=== PATIENT | female | born 1945 | race Caucasian/White ===

== ENCOUNTER → 2016-10-21 | Outpatient (CLI) | payer OTHER | LOC: BHFA 10:15 | PROVIDERS: ATTEND Internal Medicine Cardiovascular Disease | DX: I48.91 Unspecified atrial fibrillation (principal); I10 Essential (primary) hypertension; I38 Endocarditis, valve unspecified ==

== ENCOUNTER → 2016-10-23 | Outpatient (CLI) | payer OTHER, BC | LOC: FIMAGING 11:53 | PROVIDERS: ATTEND Specialist | DX: M51.36 Other intervertebral disc degeneration, lumbar region (principal) ==

== ENCOUNTER 2016-10-30 08:26 | Inpatient (IN) | payer OTHER ==
[2016-10-30 09:31] LABS: HEMATOCRIT 30.8 % (38.0-47.0); HEMOGLOBIN 10.2 g/dL (12.6-16.3)
[2016-10-30 09:50] LABS: INR 1.09 (0.83-1.16)
[2016-10-30 09:51] LABS: APTT 26.6 SEC (23.0-38.0)
[2016-10-30 09:57] LABS: ANION GAP 12 mEq/L (8-16); CALCIUM 9.6 mg/dL (8.5-10.4); CARBON DIOXIDE 23 mEq/l (22-31); CHLORIDE 107 mEq/L (97-110); CREATININE 1.3 mg/dL (0.6-1.0); GLOMERULAR FILTRATION RATE 40; GLUCOSE 121 mg/dL (70-100); POTASSIUM 3.7 mEq/L (3.5-5.2); SODIUM 142 mEq/L (134-144)
[2016-10-30] MEDS ORDERED: fentaNYL 100 MCG/2 ML INJ ONE ×2 (10:13→12:26)
[2016-10-30] MEDS ORDERED: LIDOCAINE 2% 100 MG/5 ML SYR ONE (10:29)
[2016-10-30] MEDS ORDERED: PROPOFOL 200 MG/20 ML VIAL ONE (10:38)
[2016-10-30] MEDS ORDERED: DEXAMETHASONE 4 MG/ML VIAL ONE ×2 (11:46)
[2016-10-30] MEDS ORDERED: ONDANSETRON 4 MG/2 ML VIAL ONE (11:47)
[2016-10-30] MEDS ORDERED: IOPAMIDOL (ISOVUE-300) 100 ML BTL IV ONE (14:43)
[2016-10-30] MEDS ORDERED: HYDROmorphONE/DILAUDID 1 MG/ML SYR IVP PRN (14:57)
[2016-10-30] MEDS ORDERED: D50W 25 GM/50 ML SYR IVP PRN (16:14)
[2016-10-30] MEDS ORDERED: NS 1,000 ML IV SCH (16:30)
--- NOTE | 2016-10-30 16:40 | GHP ---
[f rep st] HISTORY AND PHYSICAL DATE OF ADMISSION: 10/30/2016 CHIEF COMPLAINT: Hematuria. HISTORY: The patient is a 71-year-old female who underwent a right-sided nephrostomy tube with Dr. Michaels today. She was diagnosed as an outpatient by Dr. Mccain with a large kidney stone. He plans on intervention tomorrow. She never has had any pain with this stone. This was discovered because roberto grewal was having hematuria and recurrent urinary tract infections. The last time she was on antibiotics was a few weeks ago. PAST MEDICAL HISTORY: 1. Hypertension. 2. Diabetes. 3. Depression. PAST SURGICAL HISTORY: Broken leg, appendectomy, bowel blockage. MEDICATIONS: Please see computer record for full detailed list. ALLERGIES: No known drug allergies. SOCIAL HISTORY: No smoking. No alcohol. She lives alone. REVIEW OF SYSTEMS: Complete review of systems obtained. Review of systems is negative regarding co nstitutional, HEENT, GI, pulmonary, cardiovascular, , hematology, skin, musculoskeletal, endocrine and psychiatric, except for positives and negatives as noted under HPI. FAMILY HISTORY: Reviewed, noncontributory to presenting complaint. PHYSICAL EXAMINATION: GENERAL: Well-developed, well-nourished female, in no distress. VITAL SIGNS : Temperature is 36.5, pulse 67, blood pressure 127/65, saturating 98% on room air. EYES: Normal conjunctivae. Pupils react to light. ENT: Normal ears, nose. Hearing intact. Normal lips and te eth. Oropharynx moist. NECK: Trachea midline. No thyromegaly. CHEST: Normal respiratory effort . LUNGS: Clear to auscultation bilaterally. CARDIOVASCULAR SYSTEM: Regular rate and rhythm. Bertha y loud prominent murmur heard best at right upper sternal border. No lower extremity edema. ABDOME N: Soft, nontender. No hepatosplenomegaly. SKIN: Warm, dry, intact. No rash. MUSCULOSKELETAL: No cyanosis or clubbing. Strength 5/5 upper and lower extremities. NEURO: Cranial nerves intact. Normal sensation to light touch. PSYCH: Alert and oriented x3. Normal mood and affect. Normal judgment. Normal memory. LABS: Hematocrit is 30.8 platelets 1.09. Sodium 142, potassium 3.7, chloride 107, bicarb 23, BUN 3 4, creatinine 1.3, glucose 121. ASSESSMENT AND PLAN: 1. Right-sided nephrolithiasis status post right-sided nephrostomy tube. Plan is to go to OR in morning with Dr. Mccain. 2. Acute renal failure. She is above baseline, which I believe is normal. Will hydrate with IV fl uids overnight and recheck in the morning. Will hold her meloxicam. 3. Diabetes type 2. She is typically on glipizide, Actos and metformin, which will be held tomorro w morning prior to surgery. Will place on insulin sliding scale. 4. Hypertension. Continue Coreg, chlorthalidone and Diovan. 5. Murmur. This is consistent with an murmur. She denies ever previously having an echocardiog sascha. Will check one as the may be relevant in the preoperative evaluation. She is also on Eliqu is, which makes me wonder if she has a diagnosis of atrial fibrillation. Will hold Eliquis for surg tristan. Will check an EKG in the morning. CODE STATUS: Full. ADMISSION STATUS: Will admit to observation depending on how she does after surgery. Decision to b e made tomorrow whether or not she needs ongoing hospitalization. DVT PROPHYLAXIS: She is low risk as she is chronically anticoagulated. Will place her on SCDs. /[id number]/MODL
--- NOTE | 2016-10-30 17:12 | ECHO ---
[id number] + + [address] : : [place] [address] : : [phone] + Adult Echocardiographic Report + -------+ :Name: KAROLYN SOSA MStudy Date: 10/30/2016 04:28 PM : : Hospital Admission Number: [id number] Locati on: 156: :: 1945 Gender: Female Height: 67 in : :Age: 71 yrs Race: WH Weight: 209 lb : :Reason For Study: loud murmur; pre-op : : BSA: 2.1 meter s2 : :History: loud murmur; pre-op : + -------+ MMode/2D Measurements \T\ Calculations IVSd: 1.6 cm LVIDd: 4.7 cm FS: 46.6 % Ao root diam: LVPWd: 1.4 cm LVIDs: 2.5 cm EDV(Teich): 3.0 cm 101.3 ml LA dimension: ESV(Teich): 22.3 ml 4.2 cm EF(Teich): 78.0 % LVOT diam: LVLd ap4: 8.4 cm SV(MOD-sp4): 1.9 cm EDV(MOD-sp4): 112.0 ml LVOT area: 159.0 ml 2.8 cm2 LVLs ap4: 6.8 cm ESV(MOD-sp4): 47.0 ml EF(MOD-sp4): 70.4 % Normal Measurement Values: + + :LVIDd (3.5-5.7cm) IVSd (0.6-1.1cm) LVPWd (0.6-1.1cm) Aortic Root (2.0-3.7cm)Left Atrium (1.5-4.0cm): :LV Vol(d) (76-115ml) LV Vol(s) (29-48ml) Ejec Fraction (50-65%)PV David (0.6- 1.2m/s) TV David (0.4-1.0m/s) : :MV E David (0.8-1.0m/s)MV A David (0.3-1.0m/s)LVOT David (0.7-1.2m/s) Asc Ao David ( 0.9-1.8m/s) : + + Doppler Measurements \T\ Calculations MV V2 max: Ao V2 max: LV V1 max: SV(LVOT): 239.7 cm/sec 413.0 cm/sec 136.0 cm/sec 70.0 ml MV max P.0 mmHg Ao max P.2 mmHg LV V1 max PG: MV V2 mean: Ao mean P.4 mmHg 160.0 cm/sec 45.0 mmHg LV V1 mean PG: MV mean PG: Ao V2 mean: 5.0 mmHg 11.0 mmHg 326.0 cm/sec LV V1 mean: MV V2 VTI: 55.6 cm Ao V2 VTI: 80.3 cm 99.5 cm/sec MVA(VTI): 1.3 cm2 CHARLINE(I,D): 0.87 cm2 LV V1 VTI: 24.7 cm CHARLINE(V,D): 0.93 cm2 PA V2 max: TR max david: 144.0 cm/sec 323.0 cm/sec PA max P.3 mmHg TR max P.7 mmHg RAP systole: 10.0 mmHg RVSP(TR): 51.7 mmHg Left Ventricle The left ventricle is normal in size. There is moderate concentric left ventricular hypertrophy. Ejection Fraction = 75%. The left ventricle is hyperdynamic. No regional wall motion abnormalities noted. Right Ventricle The right ventricle is normal in size and function. Atria The left atrium is moderate to severely dilated. Right atrial size is normal. A dilated inferior vena cava suggests increased right atrial pressure. Mitral Valve The mitral valve leaflets appear thickened, but open well. Severe posterior mitral annular calcification. There is moderate mitral stenosis. Mean gradient across the valve 9-11mmHg. There is mild mitral regurgitation. Tricuspid Valve The tricuspid valve is normal in structure and function. There is mild tricuspid regurgitation. Right ventricular systolic pressure is 52mmHg. There is Doppler evidence for moderate pulmonary hypertension. Aortic Valve The aortic valve is trileaflet. Severe Aortic Valve Calcification. 45/68 mmHg mean/max pressure gradient, 4.3m.sec max velocity across the valve and NDSI = .31. Moderate to severe valvular aortic stenosis. There is a calculated aortic valve area of .93 cm2. Mild aortic regurgitation. Pulmonic Valve The pulmonic valve is normal in structure and function. Mild pulmonic valvular regurgitation. Great Vessels The aortic root is normal size. Pericardium/Pleural trivial pericardial effusion. Conclusion A two-dimensional transthoracic echocardiogram with M-mode and Doppler was performed. The left ventricle is normal in size. There is moderate concentric left ventricular hypertrophy. The left ventricle is hyperdynamic. Ejection Fraction = 75%. The left atrium is moderate to severely dilated. Severe posterior mitral annular calcification. There is moderate mitral stenosis. There is mild mitral regurgitation. There is mild tricuspid regurgitation. Right ventricular systolic pressure is 52mmHg. There is Doppler evidence for moderate pulmonary hypertension. Mild aortic regurgitation. 45/68 mmHg mean/max pressure gradient, 4.3m.sec max velocity across the valve and NDSI = .31. Moderate to severe valvular aortic stenosis. There is a calculated aortic valve area of .93 cm2. Mild pulmonic valvular regurgitation. trivial pericardial effusion. Mean gradient across the valve 9-11mmHg. Final Reading Physician: Ashvin Boyer signed on 10/30/2016 05:10 PM Ordering Physician: Erica Conrad Performed By: Elaine Pendleton
--- NOTE | 2016-10-30 17:44 | HOSPPROG ---
Hospitalist Progress Note Assessment/Plan: Called by Dr. Merino - cardiology ECHO shows significant aortic stenosis Patient may still proceed with surgery in am, but anesthesia to be aware of hemodynamic risks Objective: Vital Signs Temp Pulse Resp BP Pulse Ox 36.8 C 97 12 135/59 H 89 L 10/30/16 16:07 10/30/16 16:07 10/30/16 16:07 10/30/16 16:07 10/30/16 16:07 Laboratory Results 10/30/16 09:10 10/30/16 09:10 10/29/16 10/30/16 10/31/16 05:59 05:59 05:59 Intake Total 700 Balance 700 PT 14.0 SEC (12.0-15.0) 10/30/16 09:10 INR 1.09 (0.83-1.16) 10/30/16 09:10 ICD10 Worksheet Patient Problems: Problems Problem Status Onset Aortic stenosis Acute Staghorn renal calculus Acute - ICD10 Problem Qualifiers (1) Aortic stenosis Qualifiers: Cardiac valve disease etiology: etiology unspecified Qualified Code(s): I35.0 - Nonrheumatic aortic (valve) stenosis
[2016-10-30] MEDS ORDERED: CARVEDILOL 25 MG TAB PO SCH (18:00)
[2016-10-30] MEDS: CARVEDILOL 25 MG TAB PO SCH (18:29)
[2016-10-30] MEDS: metFORMIN HCL 500 MG TAB PO SCH (18:32)
[2016-10-30] MEDS: INSULIN REGULAR HUMAN 100 UNIT/ML SC SCH ×2 (18:36→20:30)
[2016-10-30] MEDS: MELATONIN 3 MG TAB PO SCH (20:59)
[2016-10-30] MEDS ORDERED: APIXABAN 5 MG TAB PO SCH (21:00)
[2016-10-30] MEDS ORDERED: MELATONIN 3 MG TAB PO SCH (21:00)
[2016-10-31] MEDS: oxyCODONE IR 5 MG TAB PO PRN ×2 (04:30→16:29)
[2016-10-31] MEDS: LEVOTHYROXINE 125 MCG TAB PO SCH (04:35)
[2016-10-31 05:33] LABS: % IMMATURE GRANULYOCYTES 1.1 % (0.0-1.1); ABSOLUTE IMMATURE GRANULOCYTES 0.13 10^3/uL (0.00-0.10); ADD DIFF? NO; ADD MORPH? NO; ADD SCAN? NO; ATYPICAL LYMPHOCYTE FLAG 0 (0-99); FRAGMENT RBC FLAG 0 (0-99); HEMATOCRIT 25.7 % (38.0-47.0); HEMOGLOBIN 8.5 g/dL (12.6-16.3); LEFT SHIFT FLG 10 (0-99); LIPEMIA HEMOLYSIS FLAG 80 (0-99); MEAN CELL HEMOGLOBIN 31.4 pg (27.9-34.1); MEAN CELL HEMOGLOBIN CONCENTR. 33.1 g/dL (32.4-36.7); MEAN CELL VOLUME 94.8 fL (81.5-99.8); MEAN PLATELET VOLUME 9.8 fL (8.7-11.7); PLATELET CLUMPS FLAG 0 (0-99); PLATELET COUNT 277 10^3/uL (150-400); RED BLOOD CELL COUNT 2.71 10^6/uL (4.18-5.33); RED CELL DISTRIBUTION WIDTH 13.2 % (11.5-15.2)
[2016-10-31 05:46] LABS: ANION GAP 11 mEq/L (8-16); CALCIUM 8.8 mg/dL (8.5-10.4); CARBON DIOXIDE 22 mEq/l (22-31); CHLORIDE 109 mEq/L (97-110); CREATININE 1.4 mg/dL (0.6-1.0); GLOMERULAR FILTRATION RATE 37; GLUCOSE 156 mg/dL (70-100); POTASSIUM 3.6 mEq/L (3.5-5.2); SODIUM 142 mEq/L (134-144)
[2016-10-31] MEDS ORDERED: LEVOTHYROXINE 125 MCG TAB PO SCH (06:00)
--- NOTE | 2016-10-31 08:34 | CPEKG ---
Heart Rate: 68 RR Interval: 882 P-R Interval: 216 QRSD Interval: 110 QT Interval: 428 QTC Interval: 456 P [place]: 52 QRS [place]: -39 T Wave [place]: 80 EKG Severity - ABNORMAL ECG - EKG Impression: SINUS RHYTHM EKG Impression: NONSPECIFIC IVCD WITH LAD Electronically Signed By: Melody Osborn 31-Oct-2016 15:13:45
[2016-10-31] MEDS: INSULIN REGULAR HUMAN 100 UNIT/ML SC SCH ×4 (08:35→21:54)
[2016-10-31] MEDS: metFORMIN HCL 500 MG TAB PO SCH ×2 (08:36→16:30)
[2016-10-31] MEDS: glipiZIDE 5 MG TAB PO SCH (08:37)
[2016-10-31] MEDS: PIOGLITAZONE HCL 15 MG TAB PO SCH (08:38)
[2016-10-31] MEDS ORDERED: CHLORTHALIDONE 25 MG TAB PO SCH (09:00)
[2016-10-31] MEDS ORDERED: POTASSIUM CHLORIDE 8 MEQ PO SCH (09:00)
[2016-10-31] MEDS ORDERED: ARIPIPRAZOLE 10 MG PO SCH (09:00)
[2016-10-31] MEDS ORDERED: amLODIPine BESYLATE 5 MG TAB PO SCH (09:00)
[2016-10-31] MEDS ORDERED: VALSARTAN 160 MG TAB PO SCH (09:00)
[2016-10-31] MEDS ORDERED: glipiZIDE 5 MG TAB PO SCH (09:00)
[2016-10-31] MEDS ORDERED: PIOGLITAZONE HCL 15 MG TAB PO SCH (09:00)
[2016-10-31] MEDS ORDERED: NON-FORMULARY NEW DRUG (Valsartan [Diovan] 320 MG) PO SCH (09:00)
[2016-10-31] MEDS ORDERED: buPROPion SR 100 MG TAB PO SCH (09:00)
[2016-10-31] MEDS ORDERED: ARIPiprazole 10 MG TAB PO SCH (09:00)
[2016-10-31] MEDS ORDERED: MINERAL OIL 10 ML VIAL TP ONE (09:05)
[2016-10-31] MEDS: POTASSIUM CL 10 MEQ TAB PO SCH (09:27)
[2016-10-31] MEDS: CHLORTHALIDONE 25 MG TAB PO SCH (09:28)
[2016-10-31] MEDS: buPROPion SR 100 MG TAB PO SCH (09:28)
[2016-10-31] MEDS: VALSARTAN 160 MG TAB PO SCH (09:29)
[2016-10-31] MEDS: ATORVASTATIN CALCIUM 20 MG TAB PO SCH (09:29)
[2016-10-31] MEDS: ARIPiprazole 10 MG TAB PO SCH (09:29)
[2016-10-31] MEDS: amLODIPine BESYLATE 5 MG TAB PO SCH (09:30)
[2016-10-31] MEDS: CARVEDILOL 25 MG TAB PO SCH ×2 (09:30→16:30)
--- NOTE | 2016-10-31 12:28 | PDCONSULT ---
Digital Media Strategist Note: Reviewed Chart for Patient, Kayce Pedersen, scheduled for percutaneous nephrolithotomy today. Patient with new finding of severe aortic stenosis on echo with a valve area of 0.93cm2 and 45/68 mmhg mean/max gradient. Echo also shows moderate mitral stenosis and moderate pulmonary hypertension. Given the risks associated with anesthesia and aortic stenosis, I can not guarantee that an ICU bed would not be needed. Because the hospital is currently on ICU divert , it would be prudent to err on the side of safety and do the surgery when an ICU bed is available unless the patient's condition worsens and the procedure needs to be urgently.
--- NOTE | 2016-10-31 12:41 | SOAPPROG ---
RYAN Progress Note Assessment/Plan: Assessment: 1. Right staghorn calculus, s/p nephrostomy tube placement yesterday. 2. Aortic stenosis. Due to the significance of her noted on yesterday's echo, anesthesia is not comfortable proceeding with surgery unless an ICU bed is available, and currently the ICU is on divert with no rooms clearly anticipated to be available later today. Therefore, her surgery is being cancelled at this time. I have fully explained this to the patient, and also discussed with anesthesia and hospitalist service. 1 hour was spent in consultation and coordination of care from my standpoint today. Plan: 1. I have asked hospitalists to facilitate cardiology consultation while pt. is in-house to more formally reassess her anesthesia risk in light of echo findings. 2. Assuming cardiology is not averse to the pt. proceeding with PCNL, surgery will be rescheduled SPENCER. However, this will require coordination with OR, my office, and IR for a 4-hour block of OR time. 3. Pt. will therefore need to be discharged with her nephrostomy tubes in situ. If pt. is unable to sufficiently manage these at home on her own, then temporary SNF placement may be necessary. Hospitalist service will also assess this aspect of her situation as well. Subjective: Pt. anxious to proceed with stone surgery. Objective: Vital Signs Temp Pulse Resp BP Pulse Ox 36.7 C 71 16 119/68 99 10/31/16 07:42 10/31/16 07:42 10/31/16 07:42 10/31/16 07:42 10/31/16 07:42 Laboratory Results 10/31/16 05:21 10/31/16 05:21 10/30/16 10/31/16 11/01/16 05:59 05:59 05:59 Intake Total 700 Output Total 300 Balance 400 PT 14.0 SEC (12.0-15.0) 10/30/16 09:10 INR 1.09 (0.83-1.16) 10/30/16 09:10 Physical Exam - Physical Exam General Appearance: alert, no apparent distress, obese Neuro/Psych: alert, normal mood/affect ICD10 Worksheet Patient Problems: Problems Problem Status Onset Staghorn renal calculus Acute - ICD10 Problem Qualifiers (1) Staghorn renal calculus
--- NOTE | 2016-10-31 15:49 | HOSPPROG ---
Hospitalist Progress Note Assessment/Plan: * Large staghorn calculus s/p nephrostomy -d/w Dr. Mccain - surgery to be rescheduled * Severe - CHARLINE 0.9cm2 -surgery cancelled this am by anesthesia due to lack of ICU beds for post-op care -urology requests cardiology consult for pre-op clearance * DM II -continue oral hypoglycemics * ARF - suspect this is above baseline -hold meloxicam * Obesity BMI 32 * ? h/o afib -on chronic Eliquis - will restart * HTN -coreg, chlorthalidone, diovan Per Dr. Mccain - patient will discharge with nephrostomy tube -surgery likely to be rescheduled for few weeks -concern for her ability to handle nephrostomy tube at home -possible SNF at discharge, will consult PT/OT Subjective: No complaints. Hungry. Objective: Vital Signs Temp Pulse Resp BP Pulse Ox 36.7 C 71 16 119/68 99 10/31/16 07:42 10/31/16 07:42 10/31/16 07:42 10/31/16 07:42 10/31/16 07:42 Laboratory Results 10/31/16 05:21 10/31/16 05:21 10/30/16 10/31/16 11/01/16 05:59 05:59 05:59 Intake Total 700 Output Total 300 150 Balance 400 -150 PT 14.0 SEC (12.0-15.0) 10/30/16 09:10 INR 1.09 (0.83-1.16) 10/30/16 09:10 EKG viewed, my personal interpretation is: NSR - Physical Exam Constitutional: no apparent distress, appears nourished, not in pain Cardiovascular: regular rate and rhythym, systolic murmur, No edema Respiratory: no respiratory distress, no rales or rhonchi, clear to auscultation Gastrointestinal: normoactive bowel sounds, soft, non-tender abdomen, no palpable masses Skin: no rashes or abrasions, no fluctuance, no induration Neurologic: AAOx3, sensation intact bilaterally Psychiatric: interacting appropriately, not anxious, not encephalopathic, thought process linear ICD10 Worksheet Patient Problems: Problems Problem Status Onset Staghorn renal calculus Acute
--- NOTE | 2016-10-31 16:25 | SOAPPROG ---
SOAP Progress Note Assessment/Plan: Assessment: 1. Paroxysmal atrial fibrillation. She appears to be in sinus rhythm at the present time. 2. Severe aortic stenosis. Her calculated aortic valve area is under 1 subcutaneously cm. Her mean transaortic pressure gradient is in excess of 40 mmHg. 3. Hypertension. 4. Hyperlipidemia. 5. Obesity. 6. Obstructive sleep apnea. 7. Staghorn calculi. Given the patient's underlying cardiovascular comorbidities, specifically her history of severe aortic stenosis, she is not at low risk for perioperative cardiovascular complications. She has, however, recently undergone general anesthesia and surgery without specific complications. Her surgical procedure appears to be clinically necessary. Additionally, I think that she can be safely operated on as long as careful attention was paid to her hemodynamics. Specifically, hypotension would not be well tolerated. Additionally, large volume infusions may result in congestive heart failure. Certainly the development of arrhythmias such as atrial fibrillation may pose hemodynamic instability and should be corrected immediately if these should occur. I do not think there are readily available pharmaceutical or procedural based options to mitigate her cardiovascular risk. I do think it would be helpful to discontinue her amlodipine and chlorthalidone on the morning of surgery. I would feel more comfortable with her having blood pressures that run on the higher side rather than the lower side. Therefore I would recommend that you proceed with her surgery. With respect to her systemic anticoagulation, this should be restarted as soon as it is thought safe from a surgical perspective to help offset some of her risk for stroke in the setting of her atrial fibrillation. 10/31/16 16:32 Subjective: The patient is seen and examined. Her chart has been reviewed. She is typically followed as an outpatient by Dr. Sanjay Acosta. She has known moderate aortic stenosis and paroxysmal atrial fibrillation as well as hypertension and hyperlipidemia. She has done very well with a strategy of rate control and systemic anticoagulation. She was actually seen by Dr. Acosta 10/21/2016. At that time she was cleared from a cardiovascular perspective to proceed with urologic surgery. Several days ago she underwent general anesthesia with placement of nephrostomy tubes. This was apparently performed without significant cardiovascular difficulty. In talking to her, she is currently nearly completely sedentary. She states she is battling with depression. The most strenuous activity that she participates in is going for 7 minutes walk at a very casual pace which she does fairly infrequently. At rest, she denies angina. She denies orthopnea, PND and lower extremity edema. She is currently hospitalized following placement of nephrostomy tubes. There are plans for her to have surgical removal of staghorn calculi. She had an echocardiogram done yesterday. I reviewed that study. That indicated that she had significant aortic stenosis with a calculated valve area under 1 subcutaneously cm and a mean transaortic pressure gradient in excess of 40 mmHg. Objective: Vital Signs Temp Pulse Resp BP Pulse Ox 36.7 C 71 16 119/68 99 10/31/16 07:42 10/31/16 07:42 10/31/16 07:42 10/31/16 07:42 10/31/16 07:42 Laboratory Results 10/31/16 05:21 10/31/16 05:21 10/30/16 10/31/16 11/01/16 05:59 05:59 05:59 Intake Total 700 Output Total 300 150 Balance 400 -150 PT 14.0 SEC (12.0-15.0) 10/30/16 09:10 INR 1.09 (0.83-1.16) 10/30/16 09:10 Physical Exam - Physical Exam General Appearance: WD/WN, no apparent distress Neck: non-tender Respiratory: lungs clear Cardiac/Chest: regular rate, rhythm, systolic murmur (Harsh, 3/6 late peaking systolic ejection murmur left sternal border), No edema, No gallop, No JVD Peripheral Pulses: 1+: carotid (R), carotid (L) Abdomen: non-tender Neuro/Psych: no motor/sensory deficits, normal mood/affect, oriented x 3 ICD10 Worksheet Patient Problems: Problems Problem Status Onset Staghorn renal calculus Acute
[2016-10-31] MEDS: APIXABAN 5 MG TAB PO SCH (20:56)
[2016-10-31] MEDS: MELATONIN 3 MG TAB PO SCH (20:56)
[2016-11-01] MEDS: LEVOTHYROXINE 125 MCG TAB PO SCH (05:08)
[2016-11-01] MEDS: oxyCODONE IR 5 MG TAB PO PRN ×3 (05:14→22:32)
[2016-11-01 05:49] LABS: % IMMATURE GRANULYOCYTES 0.7 % (0.0-1.1); ABSOLUTE IMMATURE GRANULOCYTES 0.07 10^3/uL (0.00-0.10); ADD DIFF? NO; ADD MORPH? NO; ADD SCAN? NO; ATYPICAL LYMPHOCYTE FLAG 0 (0-99); FRAGMENT RBC FLAG 0 (0-99); HEMOGLOBIN 9.3 g/dL (12.6-16.3); LEFT SHIFT FLG 0 (0-99); LIPEMIA HEMOLYSIS FLAG 80 (0-99); MEAN CELL HEMOGLOBIN CONCENTR. 33.2 g/dL (32.4-36.7); MEAN CELL VOLUME 96.2 fL (81.5-99.8); MEAN PLATELET VOLUME 9.9 fL (8.7-11.7); PLATELET CLUMPS FLAG 0 (0-99); PLATELET COUNT 283 10^3/uL (150-400); RED BLOOD CELL COUNT 2.91 10^6/uL (4.18-5.33); RED CELL DISTRIBUTION WIDTH 13.2 % (11.5-15.2)
[2016-11-01 06:03] LABS: ANION GAP 11 mEq/L (8-16); CARBON DIOXIDE 23 mEq/l (22-31); CHLORIDE 109 mEq/L (97-110); CREATININE 1.7 mg/dL (0.6-1.0); GLOMERULAR FILTRATION RATE 29; GLUCOSE 107 mg/dL (70-100); POTASSIUM 3.7 mEq/L (3.5-5.2); SODIUM 143 mEq/L (134-144)
[2016-11-01] MEDS: POTASSIUM CL 10 MEQ TAB PO SCH (10:47)
[2016-11-01] MEDS: CHLORTHALIDONE 25 MG TAB PO SCH (10:48)
[2016-11-01] MEDS: glipiZIDE 5 MG TAB PO SCH (10:48)
[2016-11-01] MEDS: ATORVASTATIN CALCIUM 20 MG TAB PO SCH (10:49)
[2016-11-01] MEDS: APIXABAN 5 MG TAB PO SCH ×2 (10:50→20:16)
[2016-11-01] MEDS: PIOGLITAZONE HCL 15 MG TAB PO SCH (10:50)
[2016-11-01] MEDS: ARIPiprazole 10 MG TAB PO SCH (10:50)
[2016-11-01] MEDS: buPROPion SR 100 MG TAB PO SCH (10:50)
[2016-11-01] MEDS: amLODIPine BESYLATE 5 MG TAB PO SCH (10:50)
[2016-11-01] MEDS: VALSARTAN 160 MG TAB PO SCH (10:50)
[2016-11-01] MEDS: CARVEDILOL 25 MG TAB PO SCH ×2 (10:53→18:43)
[2016-11-01] MEDS: metFORMIN HCL 500 MG TAB PO SCH (10:53)
--- NOTE | 2016-11-01 12:09 | SOAPPROG ---
RYAN Progress Note Assessment/Plan: Assessment: Right staghorn kidney Aortic Stenosis Plan: Patient is to be discharged either home or to SNF, pending therapy evaluation. Will reschedule surgery for the next couple of weeks. Perc tube to remain in place. Patient has been seen and evaluated by cards. 11/01/16 12:07 Objective: Vital Signs Temp Pulse Resp BP Pulse Ox 36.8 C 77 16 127/79 H 95 11/01/16 08:34 11/01/16 08:34 11/01/16 08:34 11/01/16 08:34 11/01/16 08:34 Laboratory Results 11/01/16 05:41 11/01/16 05:41 10/31/16 11/01/16 11/02/16 05:59 05:59 05:59 Intake Total 700 1000 Output Total 300 400 Balance 400 600 PT 14.0 SEC (12.0-15.0) 10/30/16 09:10 INR 1.09 (0.83-1.16) 10/30/16 09:10 Physical Exam - Physical Exam General Appearance: alert, no apparent distress Neck: normal inspection Skin: normal color Extremities: normal range of motion Neuro/Psych: no motor/sensory deficits, alert ICD10 Worksheet Patient Problems: Problems Problem Status Onset Aortic stenosis Acute Staghorn renal calculus Acute
[2016-11-01] MEDS: INSULIN REGULAR HUMAN 100 UNIT/ML SC SCH ×4 (12:23→21:44)
[2016-11-01] MEDS: NS 1,000 ML IV SCH ×2 (14:52→16:34)
[2016-11-01 15:01] LABS: COLOR YELLOW; LEUKOCYTE ESTERASE,URINE 2+ (NEGATIVE); NITRITE,URINE NEGATIVE (NEGATIVE)
[2016-11-01 15:21] LABS: MUCUS TRACE /lpf (NONE-1+); RBC,URINE 50-182 /hpf (0-3); WBC,URINE 25-50 /hpf (0-3)
--- NOTE | 2016-11-01 15:43 | HOSPPROG ---
Hospitalist Progress Note Assessment/Plan: * Obstructive nephrolithiasis (staghorn) s/p nephrostomy tube -surgery with Dr. Mccain to be scheduled in few weeks * ARF - previous baseline 0.9 -hold diovan, chlorthalidone, metformin, meloxicam -IVF * Severe aortic stenosis -per cardiology okay to proceed with surgery -need intensive edi-operative monitoring -hold amlodipine and chlorthalidone on morning of surgery * Paroxysmal afib -resume Eliquis * UTI -start Cipro, await culture * DM II -holding metformin * Depression -home meds Dispo - will likely need SNF, weak, lives alone, discharging with nephrostomy tube Subjective: feels weak Objective: Vital Signs Temp Pulse Resp BP Pulse Ox 36.8 C 77 16 127/79 H 88 L 11/01/16 08:34 11/01/16 08:34 11/01/16 08:34 11/01/16 08:34 11/01/16 09:27 Laboratory Results 11/01/16 05:41 11/01/16 05:41 10/31/16 11/01/16 11/02/16 05:59 05:59 05:59 Intake Total 700 1000 Output Total 300 400 Balance 400 600 PT 14.0 SEC (12.0-15.0) 10/30/16 09:10 INR 1.09 (0.83-1.16) 10/30/16 09:10 - Physical Exam Constitutional: no apparent distress, appears nourished, not in pain Cardiovascular: regular rate and rhythym, no murmur, rub, or gallop Respiratory: no respiratory distress, no rales or rhonchi, clear to auscultation Gastrointestinal: normoactive bowel sounds, soft, non-tender abdomen, no palpable masses Skin: no rashes or abrasions, no fluctuance, no induration Neurologic: AAOx3, sensation intact bilaterally Psychiatric: interacting appropriately, not anxious, not encephalopathic, thought process linear, flat affect ICD10 Worksheet Patient Problems: Problems Problem Status Onset Aortic stenosis Acute Staghorn renal calculus Acute - ICD10 Problem Qualifiers (1) Aortic stenosis Qualifiers: Cardiac valve disease etiology: etiology unspecified Qualified Code(s): I35.0 - Nonrheumatic aortic (valve) stenosis
[2016-11-01] MEDS ORDERED: PNEUMOC 13-VAL CONJ-DIP CRM/PF 0.5 ML SYR IM ONE (17:04)
[2016-11-01] MEDS: CIPROFLOXACIN 500 MG TAB PO SCH (20:15)
[2016-11-01] MEDS: MELATONIN 3 MG TAB PO SCH (20:16)
[2016-11-02 05:45] LABS: % IMMATURE GRANULYOCYTES 0.9 % (0.0-1.1); ABSOLUTE IMMATURE GRANULOCYTES 0.08 10^3/uL (0.00-0.10); ADD DIFF? NO; ADD MORPH? NO; ADD SCAN? NO; ATYPICAL LYMPHOCYTE FLAG 0 (0-99); FRAGMENT RBC FLAG 0 (0-99); HEMATOCRIT 25.9 % (38.0-47.0); HEMOGLOBIN 8.5 g/dL (12.6-16.3); LEFT SHIFT FLG 0 (0-99); LIPEMIA HEMOLYSIS FLAG 80 (0-99); MEAN CELL HEMOGLOBIN 31.6 pg (27.9-34.1); MEAN CELL HEMOGLOBIN CONCENTR. 32.8 g/dL (32.4-36.7); MEAN CELL VOLUME 96.3 fL (81.5-99.8); PLATELET CLUMPS FLAG 0 (0-99); PLATELET COUNT 261 10^3/uL (150-400); RED BLOOD CELL COUNT 2.69 10^6/uL (4.18-5.33); RED CELL DISTRIBUTION WIDTH 13.2 % (11.5-15.2)
[2016-11-02 05:56] LABS: ANION GAP 9 mEq/L (8-16); CALCIUM 8.6 mg/dL (8.5-10.4); CARBON DIOXIDE 22 mEq/l (22-31); CHLORIDE 110 mEq/L (97-110); CREATININE 1.4 mg/dL (0.6-1.0); GLOMERULAR FILTRATION RATE 37; GLUCOSE 109 mg/dL (70-100); POTASSIUM 3.7 mEq/L (3.5-5.2); SODIUM 141 mEq/L (134-144)
[2016-11-02] MEDS: LEVOTHYROXINE 125 MCG TAB PO SCH (05:57)
[2016-11-02] MEDS: INSULIN REGULAR HUMAN 100 UNIT/ML SC SCH ×4 (07:37→21:13)
[2016-11-02 07:53] VITALS: RESP 16
[2016-11-02] MEDS: glipiZIDE 5 MG TAB PO SCH (08:07)
[2016-11-02] MEDS: oxyCODONE IR 5 MG TAB PO PRN (08:07)
[2016-11-02] MEDS: buPROPion SR 100 MG TAB PO SCH (08:08)
[2016-11-02] MEDS: CARVEDILOL 25 MG TAB PO SCH ×2 (08:08→18:00)
[2016-11-02] MEDS: APIXABAN 5 MG TAB PO SCH ×2 (08:08→20:28)
[2016-11-02] MEDS: PIOGLITAZONE HCL 15 MG TAB PO SCH (08:08)
[2016-11-02] MEDS: POTASSIUM CL 10 MEQ TAB PO SCH (08:08)
[2016-11-02] MEDS: ATORVASTATIN CALCIUM 20 MG TAB PO SCH (08:08)
[2016-11-02] MEDS: ARIPiprazole 10 MG TAB PO SCH (08:08)
[2016-11-02] MEDS: amLODIPine BESYLATE 5 MG TAB PO SCH (08:08)
[2016-11-02] MEDS: CIPROFLOXACIN 500 MG TAB PO SCH ×2 (09:58→20:28)
[2016-11-02] MEDS: MELATONIN 3 MG TAB PO SCH (20:28)
[2016-11-02] MEDS ORDERED: BISACODYL 10 MG SUPP PR PRN (22:24)
[2016-11-02] MEDS ORDERED: LACTULOSE 20 GM/30 ML UDCUP PO PRN (22:24)
[2016-11-02] MEDS ORDERED: POLYETHYLENE GLYCOL 3350 17 GM PKT PO PRN (22:24)
[2016-11-02] MEDS ORDERED: MAGNESIUM HYDROXIDE 30 ML UDCUP PO PRN (22:24)
--- NOTE | 2016-11-02 22:26 | HOSPPROG ---
Hospitalist Progress Note Assessment/Plan: * Obstructive nephrolithiasis (staghorn) s/p nephrostomy tube -surgery with Dr. Mccain to be scheduled in 1-2 weeks * ARF - previous baseline 0.9 - improving -held diovan, chlorthalidone, metformin, meloxicam -IVF * Severe aortic stenosis -per cardiology okay to proceed with surgery -need intensive edi-operative monitoring -hold amlodipine and chlorthalidone on morning of surgery * Paroxysmal afib -resumed Eliquis * UTI -started Cipro, Cx grew normal skin shelli. -Recheck UA in AM. * DM II -held metformin. On other po meds. * Depression -home meds * Anemia -no acute bleed, continue to monitor for changes in clinical status. Dispo - pending SNF vs Rehab placement (as she lives alone and is debilitated and cannot care for her nephrostomy on her own) discharging with nephrostomy tube Subjective: Pt c/o constipation. Has some tenderness in area of nephrostomy tubes. She is disappointed that her surgery has been postponed and that she has to go to another facility before surgery. Objective: Vital Signs Temp Pulse Resp BP Pulse Ox 37.1 C 83 16 119/70 92 11/02/16 20:00 11/02/16 20:00 11/02/16 20:00 11/02/16 20:00 11/02/16 20:00 Laboratory Results 11/02/16 05:26 11/02/16 05:26 11/01/16 11/02/16 11/03/16 05:59 05:59 06:59 Intake Total 1000 1200 750 Output Total 400 650 675 Balance 600 550 75 PT 14.0 SEC (12.0-15.0) 10/30/16 09:10 INR 1.09 (0.83-1.16) 10/30/16 09:10 General: The patient is An obese, elderly female who is alert and in no acute distress. HEENT: normocephalic, extraocular movements intact, conjunctivae clear, no lesions on face. Mucous membranes moist. Neck: trachea midline, no visible masses, no external lesions. CV: +S1/S2, RRR, +Harsh systolic grade 3 murmur auscultated at all listening posts. Resp: unlabored, CTAB no RRW. Abd: soft and nondistended. +bowel sounds. Musculoskeletal: Normal muscle tone and bulk. Neuro: cranial nerves II XII grossly intact. Intact gross motor and sensory function. Psych: appropriate mood/affect. Skin: +pallor. Heme/lymph: +1 peripheral edema bilateral ankles. ICD10 Worksheet Patient Problems: Problems Problem Status Onset Aortic stenosis Acute Staghorn renal calculus Acute
[2016-11-03 01:00] LABS: COLOR RED; LEUKOCYTE ESTERASE,URINE 1+ (NEGATIVE); NITRITE,URINE NEGATIVE (NEGATIVE)
[2016-11-03 01:04] LABS: BACTERIA 1+ /hpf (NONE SEEN); MUCUS TRACE /lpf (NONE-1+); RBC,URINE 50-182 /hpf (0-3); WBC,URINE 25-50 /hpf (0-3)
[2016-11-03] MEDS: LEVOTHYROXINE 125 MCG TAB PO SCH (05:54)
[2016-11-03 06:47] LABS: ANION GAP 9 mEq/L (8-16); CALCIUM 8.9 mg/dL (8.5-10.4); CARBON DIOXIDE 26 mEq/l (22-31); CHLORIDE 107 mEq/L (97-110); CREATININE 1.2 mg/dL (0.6-1.0); GLOMERULAR FILTRATION RATE 44; GLUCOSE 134 mg/dL (70-100); POTASSIUM 3.9 mEq/L (3.5-5.2); SODIUM 142 mEq/L (134-144)
[2016-11-03 08:14] VITALS: BP 124/74; PULSE 87; TEMP 97.7; O2SAT 92
[2016-11-03] MEDS: amLODIPine BESYLATE 5 MG TAB PO SCH (08:16)
[2016-11-03] MEDS: ATORVASTATIN CALCIUM 20 MG TAB PO SCH (08:16)
[2016-11-03] MEDS: glipiZIDE 5 MG TAB PO SCH (08:16)
[2016-11-03] MEDS: CARVEDILOL 25 MG TAB PO SCH (08:17)
[2016-11-03] MEDS: buPROPion SR 100 MG TAB PO SCH (08:17)
[2016-11-03] MEDS: POTASSIUM CL 10 MEQ TAB PO SCH (08:17)
[2016-11-03] MEDS: PIOGLITAZONE HCL 15 MG TAB PO SCH (08:17)
[2016-11-03] MEDS: APIXABAN 5 MG TAB PO SCH (08:17)
[2016-11-03] MEDS: ARIPiprazole 10 MG TAB PO SCH (08:17)
[2016-11-03] MEDS: INSULIN REGULAR HUMAN 100 UNIT/ML SC SCH ×2 (08:36→12:58)
[2016-11-03] MEDS ORDERED: SENNOSIDES/DOCUSATE SODIUM TAB PO SCH (09:00)
[2016-11-03] MEDS: CIPROFLOXACIN 500 MG TAB PO SCH (10:16)
--- NOTE | 2016-11-03 15:30 | PDIAF ---
- Diagnosis Code Status: Full Code - Medication Management Discharge Medications: Medications to Continue on Transfer ARIPiprazole [Abilify 10 mg (*)] 10 mg PO DAILY 10/30/16 [Last Taken Unknown] Apixaban [Eliquis] 5 mg PO BID 10/30/16 [Last Taken Unknown] Atorvastatin Calcium [Lipitor 20 mg (*)] 20 mg PO DAILY 10/30/16 [Last Taken Unknown] Carvedilol [Coreg (*)] 25 mg PO BIDMEAL 10/30/16 [Last Taken 10/30/16] Chlorthalidone [Chlorthalidone 25 mg (*)] 12.5 mg PO DAILY 10/30/16 [Last Taken Unknown] Cholecalciferol Vit D3 [Vitamin D3 (*)] 400 units PO DAILY 10/30/16 [Last Taken Unknown] Herbals/Supplements -Info Only 1 ea PO DAILY 10/30/16 [Last Taken Unknown] Levothyroxine [Synthroid 125 mcg (*)] 125 mcg PO DAILY06 10/30/16 [Last Taken Unknown] Melatonin [Melatonin 3 MG (*)] 1 mg PO HS 10/30/16 [Last Taken Unknown] Pioglitazone HCl [Actos 15mg (*)] 15 mg PO DAILY 10/30/16 [Last Taken Unknown] Potassium Chloride [Klor-Con 8] 8 meq PO DAILY 10/30/16 [Last Taken Unknown] Valsartan [Diovan (*)] 320 mg PO DAILY 10/30/16 [Last Taken 10/30/16] amLODIPine BESYLATE [Norvasc 5 mg (*)] 5 mg PO DAILY 10/30/16 [Last Taken ] buPROPion SR [Wellbutrin 100mg SR (*)] 100 mg PO DAILY 10/30/16 [Last Taken Unknown] glipiZIDE [Glipizide] 2.5 mg PO DAILY 10/30/16 [Last Taken Unknown] metFORMIN HCL [Glucophage 500 mg (*)] 1,000 mg PO BIDMEAL 10/30/16 [Last Taken Unknown] Ciprofloxacin [Cipro] 250 mg PO BID #14 tab 11/03/16 [Last Taken Unknown] [employer] Antibiotics: Cipro 250mg 1 tab po BID x 7 days [for 10 days total] Skilled Nursing Antibiotic Stop Date: 11/10/16 Discharge Medications: Refer to the Discharge Home Medication list for PRN reason. - Orders Services needed: Home Care, Registered Nurse, Certified Sales Person, Physical Therapy Home Care Face to Face: I certify that this patient was under my care and that I had the required [id number] encounter meeting the encounter requirements on the discharge day. My findings support the fact that the patient is homebound as defined in CMS Chapter 7 Medicare Benefits Manual 30.1.1, The condition of the patient is such that there exists a normal inability to leave home and consequently, leaving home would require a considerable and taxing effort. Diet Recommendation: cardiac -low fat low salt, ADA 2000 consistent carb Diet Texture: Regular Texture Diet Weigh Patient: weekly Wound Care Instructions: nephrostomy site/drain care Activity/Weight Bearing Restrictions: ambulate with assistive device such as cane - Labs/Radiology BMP Date: 11/11/16 UA Date: 11/11/16 - Follow Up Care Current Providers and Referrals: Jennifer Mccain MD [Medical Doctor] - 3-5 days NONE *PRIMARY CARE P,. [Primary Care Provider] - follow up in 1 week
--- NOTE | 2016-11-04 08:47 | PDDCSUM ---
Discharge Summary Discharge Summary: Date of Admission: 10/30/2016 Date of Discharge: 11/03/2016 Discharge Diagnoses: Right sided staghorn calculus, status post nephrostomy Severe aortic stenosis Paroxysmal atrial fibrillation Chronic anticoagulation with Eliquis Diabetes mellitus type 2 Hypertension Obesity Acute kidney injury, resolved Admission Diagnoses: Right-sided nephrolithiasis, status post right-sided nephrostomy tube Acute renal failure Diabetes mellitus type 2 Hypertension Systolic murmur Chronic anticoagulation, suspected atrial fibrillation Consultants: Urologist-Dr. Mccain Cardiology-Dr. Merino [place] Hospital Course: The patient is a 71-year-old female who was admitted after she underwent a right -sided nephrostomy tube with Dr. Michaesl. She was diagnosed as an outpatient by Dr. Mccain with a staghorn large kidney stone. Dr. Mccain was planning to do a percutaneous stone removal the next day. Surgery was postponed because the patient was found to have severe aortic stenosis. Cardiology was consulted and recommended that although the patient is at increased perioperative cardiovascular risk for complications, she may undergo surgery because she needs it. He recommended that careful attention to be paid to her hemodynamics during surgery, specifically to avoid hypotension and large volume infusions that could cause CHF. Monitoring for and correcting arrhythmias such as atrial fibrillation would also be important during surgery. Anesthesiology recommended that an ICU bed be immediately available following surgery. No ICU beds were available for this patient. The surgery had to be postponed for 1-2 weeks in order to schedule everything that would be needed for a higher risk surgery, including an open ICU bed. Upon admission, patient was noted to have an acute kidney injury and a UTI. She was taken off of her diuretics and rehydrated. Her creatinine improved greatly throughout the course of her hospitalization. She was also treated with ciprofloxacin. A repeat basic metabolic panel and urinalysis have been ordered about 1 week post discharge. Her outpatient physicians may adjust her medications, depending on the results. The patient was discharged home with home healthcare in fair condition, with the expectation that she would return to have her kidney stone surgery in the near future. Physical Exam: General: The patient is an obese, elderly female who is alert and in no acute distress. HEENT: normocephalic, extraocular movements intact, conjunctivae clear, no lesions on face. Mucous membranes moist. Neck: trachea midline, no visible masses, no external lesions. Abd: soft and nondistended. Musculoskeletal: Slow, cautious gait. Able to transfer and ambulate independently. + mild back tenderness on right back in area of nephrostomy tube. Neuro: cranial nerves II XII grossly intact. Intact gross motor and sensory function. Psych: appropriate mood/flattened affect. Skin: + moderate pallor. Heme/lymph: trace peripheral edema at the ankles. Condition: Fair. Discharged to: Home with home healthcare. Pertinent tests/labs/imaging: EKG: Normal sinus rhythm, nonspecific intraventricular conduction delay, left axis deviation, no acute ischemic changes. Echocardiogram: Normal left ventricle. Moderate concentric LVH. Hyperdynamic left ventricle. Ejection fraction 75%. Left atrium moderately to severely dilated. Severe posterior mitral and annular calcification. Moderate mitral stenosis. Right ventricular systolic pressure 52 mm Hg. Moderate pulmonary hypertension. Mild aortic regurgitation with moderate to severe valvular aortic stenosis. Calculated aortic valve area 0.93 cm^2. Gradient across the valve 9-11 mm Hg. Right Retroperitoneal abdominal ultrasound: No hydronephrosis or perinephric fluid collection. Right-sided nephrolithiasis. Medications: Please see medication reconciliation form. Patient was resumed on her home medications, including those for diabetes. Additionally patient was continued on ciprofloxacin 250 mg twice daily for 7 days for UTI. Special instructions: Repeat BMP and UA on Friday11/11/2016. Nephrostomy care will be provided by home healthcare nursing. Continue physical therapy and occupational therapy with home healthcare. Follow up: Follow up with Dr. Mccain within 1 week. Follow up with primary care physician Dr. Yarbrough within 10 days. Greater than 30 minutes of total time was spent on counseling and coordination of care for this patient's discharge.
== END 2016-11-03 16:53 | disposition home health service (06) | DRG 694 ==
LOC: FIMAGING 08:26 → INTOOBSV 12:23 → F1N 12:23 → OBSVTOIN 10-31 15:19
PROVIDERS: ADMIT Radiology Diagnostic Radiology; ATTEND Specialist
PROC: 0T9030Z Drainage of Right Kidney with Drainage Device, Percutaneous Approach (ICD-10-PCS; principal; 2016-10-30 12:01)
DX: N20.0 Calculus of kidney (principal); I35.0 Nonrheumatic aortic (valve) stenosis; N17.9 Acute kidney failure, unspecified; I48.0 Paroxysmal atrial fibrillation; N39.0 Urinary tract infection, site not specified; I10 Essential (primary) hypertension; E11.9 Type 2 diabetes mellitus without complications; E78.5 Hyperlipidemia, unspecified; G47.33 Obstructive sleep apnea (adult) (pediatric); Z79.01 Long term (current) use of anticoagulants
CPT/HCPCS: 97116-GP; 97161-GP; 97166-GO; 97535-GO; C1729; C1769; G0009; G0378; G8978-GP-CJ; G8979-GP-CI; G8987-GO-CJ; G8988-GO-CI; J0696; J1100; J1644; J1815; J2001; J2405; J2704; J3010; Q9967

== ENCOUNTER → 2016-11-07 | Outpatient (CLI) | payer OTHER ==
[~2016-11-07] MED LIST: IOPAMIDOL (ISOVUE-300) 100 ML BTL IV ONE
== END ==
LOC: FIMAGING 16:06
PROVIDERS: ATTEND Specialist
DX: T83.092A Other mechanical complication of nephrostomy catheter, initial encounter (principal); N20.0 Calculus of kidney
CPT/HCPCS: 74425; C1769; Q9967

== ENCOUNTER 2016-11-13 13:00 | Inpatient (IN) | payer OTHER ==
[2016-11-13 14:34] LABS: % IMMATURE GRANULYOCYTES 1.2 % (0.0-1.1); ABSOLUTE IMMATURE GRANULOCYTES 0.09 10^3/uL (0.00-0.10); ADD DIFF? NO; ADD MORPH? NO; ADD SCAN? NO; ATYPICAL LYMPHOCYTE FLAG 0 (0-99); FRAGMENT RBC FLAG 0 (0-99); HEMOGLOBIN 8.4 g/dL (12.6-16.3); LEFT SHIFT FLG 10 (0-99); LIPEMIA HEMOLYSIS FLAG 80 (0-99); MEAN CELL HEMOGLOBIN 30.3 pg (27.9-34.1); MEAN CELL HEMOGLOBIN CONCENTR. 32.3 g/dL (32.4-36.7); MEAN CELL VOLUME 93.9 fL (81.5-99.8); MEAN PLATELET VOLUME 9.6 fL (8.7-11.7); PLATELET CLUMPS FLAG 0 (0-99); PLATELET COUNT 278 10^3/uL (150-400); RED BLOOD CELL COUNT 2.77 10^6/uL (4.18-5.33); RED CELL DISTRIBUTION WIDTH 13.6 % (11.5-15.2)
[2016-11-13] MEDS ORDERED: PROPOFOL 200 MG/20 ML VIAL ONE (14:48)
[2016-11-13] MEDS ORDERED: fentaNYL 100 MCG/2 ML INJ ONE (14:48)
[2016-11-13] MEDS ORDERED: LIDOCAINE 2% 100 MG/5 ML SYR ONE (14:49)
[2016-11-13 14:58] LABS: ANION GAP 11 mEq/L (8-16); CALCIUM 9.5 mg/dL (8.5-10.4); CARBON DIOXIDE 21 mEq/l (22-31); CHLORIDE 109 mEq/L (97-110); CREATININE 1.4 mg/dL (0.6-1.0); GLOMERULAR FILTRATION RATE 37; GLUCOSE 116 mg/dL (70-100); SODIUM 141 mEq/L (134-144)
[2016-11-13] MEDS ORDERED: MIDAZOLAM 2 MG/2 ML VIAL ONE (15:04)
[2016-11-13 15:06] LABS: INR 1.18 (0.83-1.16)
[2016-11-13 15:07] LABS: APTT 27.5 SEC (23.0-38.0)
[2016-11-13] MEDS ORDERED: IOPAMIDOL (ISOVUE-300) 100 ML BTL IV ONE ×2 (16:22)
[2016-11-13] MEDS ORDERED: ONDANSETRON DISINTEGRATING 4 MG TAB PO PRN (19:50)
[2016-11-13] MEDS ORDERED: ONDANSETRON 4 MG/2 ML VIAL IVP PRN (19:50)
[2016-11-13] MEDS ORDERED: D50W 25 GM/50 ML SYR IVP PRN (19:54)
--- NOTE | 2016-11-13 20:04 | PDGENHP ---
History and Physical - Chief Complaint impacted right kidney stone - History of Present Illness 71 yo female with h/o large right kidney stone diagnosed 2 weeks ago now with 2 right sided nephrostomy tubes presented to IR today for nephrostomy tube exchange prior to planned Urology intervention tomorrow. She was admitted earlier this month, but surgery was deferred due to her new diagnosis of severe and lack of ICU bed availability post-operatively. She has had home health RN helping to flush her nephrostomy tubes, which have been problematic and she required 2 new nephrostomy tubes in IR today due to clogging. She was alerted by Dr. Mccain that there was an opening in the OR and she is directly admitted in anticipation of definitive urologic intervention and stone removal tomorrow. She denies fevers, chills, nausea or vomiting. No significant flank pain, other than discomfort from the 2 tubes. She recently completely a course of Ciprofloxacin and has had no symptoms suggestive of infection. Her nephrostomy tube is draining red urine. She is diabetic and takes 3 oral hypoglycemic agents. In addition, she is on multiple anti-hypertensives and Eliquis for CVA prophylaxis given her A fib. She has held her Eliquis the past 3 days, last dose Friday morning. History Information - Allergies/Home Medication List Allergies/Adverse Reactions: No Known Allergies Allergy (Verified 10/24/16 17:40) Home Medications: ARIPiprazole [Abilify 10 mg (*)] 10 mg PO DAILY 10/30/16 [Last Taken 11/13/16] Apixaban [Eliquis] 5 mg PO BID 10/30/16 [Last Taken 11/11/16] Carvedilol [Coreg (*)] 25 mg PO BIDMEAL 10/30/16 [Last Taken 11/13/16] Chlorthalidone [Chlorthalidone 25 mg (*)] 12.5 mg PO DAILY 10/30/16 [Last Taken 11/13/16] Cholecalciferol Vit D3 [Vitamin D3 (*)] 400 units PO DAILY 10/30/16 [Last Taken 11/13/16] Herbals/Supplements -Info Only 1 ea PO DAILY 10/30/16 [Last Taken 11/12/16] Levothyroxine [Synthroid 125 mcg (*)] 125 mcg PO DAILY06 10/30/16 [Last Taken ] Melatonin [Melatonin 3 MG (*)] 1 mg PO HS 10/30/16 [Last Taken 11/12/16] Pioglitazone HCl [Actos 15mg (*)] 15 mg PO DAILY 10/30/16 [Last Taken 11/13/16] Potassium Chloride [Klor-Con 8] 8 meq PO DAILY 10/30/16 [Last Taken 11/13/16] Valsartan [Diovan (*)] 320 mg PO DAILY 10/30/16 [Last Taken 11/13/16] amLODIPine BESYLATE [Norvasc 5 mg (*)] 5 mg PO DAILY 10/30/16 [Last Taken ] buPROPion SR [Wellbutrin 100mg SR (*)] 100 mg PO DAILY 10/30/16 [Last Taken ] metFORMIN HCL [Glucophage 500 mg (*)] 1,000 mg PO BIDMEAL 10/30/16 [Last Taken 11/12/16] glipiZIDE [Glipizide Xl] 2.5 mg PO BID 11/13/16 [Last Taken 11/13/16] I have personally reviewed and updated: family history, medical history, social history, surgical history - Past Medical History atrial fibrillation, diabetes type 2, hypertension Additional medical history: depression, severe aortic stenosis - mean valve area <1 cm, transaortic pressure gradient >40 - Surgical History Reports: appendectomy - Family History Positive for: non-pertinent - Social History Smoking Status: Former smoker Alcohol Use: None Drug Use: None Additional social history: Lives independently Review of Systems ROS: 10pt was reviewed & negative except for what was stated in HPI & below Physical Exam Temp Pulse Resp BP Pulse Ox 36.3 C 70 16 141/74 H 99 11/13/16 18:57 11/13/16 18:57 11/13/16 18:57 11/13/16 18:57 11/13/16 18:57 O2 (L/minute) 2 Constitutional: no apparent distress Eyes: PERRL Ears, Nose, Mouth, Throat: moist mucous membranes Cardiovascular: regular rate and rhythym, systolic murmur Respiratory: no respiratory distress, clear to auscultation Gastrointestinal: normoactive bowel sounds, soft, non-tender abdomen Genitourinary: other (2 nephrostomy tubes right flank) Skin: warm Musculoskeletal: full muscle strength Neurologic: AAOx3 Psychiatric: interacting appropriately Lab Data & Imaging Review 11/13/16 14:20 11/13/16 14:20 WBC 7.64 10^3/uL (3.80-9.50) 11/13/16 14:20 RBC 2.77 10^6/uL (4.18-5.33) L 11/13/16 14:20 Hgb 8.4 g/dL (12.6-16.3) L 11/13/16 14:20 Hct 26.0 % (38.0-47.0) L 11/13/16 14:20 MCV 93.9 fL (81.5-99.8) 11/13/16 14:20 MCH 30.3 pg (27.9-34.1) 11/13/16 14:20 MCHC 32.3 g/dL (32.4-36.7) L 11/13/16 14:20 RDW 13.6 % (11.5-15.2) 11/13/16 14:20 Plt Count 278 10^3/uL (150-400) 11/13/16 14:20 MPV 9.6 fL (8.7-11.7) 11/13/16 14:20 Neut % (Auto) 71.9 % (39.3-74.2) 11/13/16 14:20 Lymph % (Auto) 19.4 % (15.0-45.0) 11/13/16 14:20 [place] % (Auto) 4.5 % (4.5-13.0) 11/13/16 14:20 Eos % (Auto) 2.2 % (0.6-7.6) 11/13/16 14:20 Baso % (Auto) 0.8 % (0.3-1.7) 11/13/16 14:20 Nucleat RBC Rel Count 0.0 % (0.0-0.2) 11/13/16 14:20 Absolute Neuts (auto) 5.50 10^3/uL (1.70-6.50) 11/13/16 14:20 Absolute Lymphs (auto) 1.48 10^3/uL (1.00-3.00) 11/13/16 14:20 Absolute Monos (auto) 0.34 10^3/uL (0.30-0.80) 11/13/16 14:20 Absolute Eos (auto) 0.17 10^3/uL (0.03-0.40) 11/13/16 14:20 Absolute Basos (auto) 0.06 10^3/uL (0.02-0.10) 11/13/16 14:20 Absolute Nucleated RBC 0.00 10^3/uL (0-0.01) 11/13/16 14:20 Immature Gran % 1.2 % (0.0-1.1) H 11/13/16 14:20 Immature Gran # 0.09 10^3/uL (0.00-0.10) 11/13/16 14:20 PT 15.0 SEC (12.0-15.0) 11/13/16 14:20 INR 1.18 (0.83-1.16) H 11/13/16 14:20 APTT 27.5 SEC (23.0-38.0) 11/13/16 14:20 Sodium 141 mEq/L (134-144) 11/13/16 14:20 Potassium 4.0 mEq/L (3.5-5.2) 11/13/16 14:20 Chloride 109 mEq/L (97-110) 11/13/16 14:20 Carbon Dioxide 21 mEq/l (22-31) L 11/13/16 14:20 Anion Gap 11 mEq/L (8-16) 11/13/16 14:20 BUN 37 mg/dL (7-23) H 11/13/16 14:20 Creatinine 1.4 mg/dL (0.6-1.0) H 11/13/16 14:20 Estimated GFR 37 11/13/16 14:20 Glucose 116 mg/dL (70-100) H 11/13/16 14:20 POC Glucose 100 mg/dL (70-100) 11/13/16 17:41 Calcium 9.5 mg/dL (8.5-10.4) 11/13/16 14:20 Assessment & Plan Assessment: Right nephrolithiasis with 2 new nephrostomy tubes placed today - plans for surgery per Urology (Dr. Mccain) in am. No evidence of infection, received Levaquin this evening per IR. NPO after midnight, to OR tomorrow. Eliquis held x3 days. Aortic stenosis - severe. Valve area <1 cm, transaortic pressure gradient >40. At risk for heart failure, cautious with volume edi-operatively. Hypertension - hold Norvasc and Chlorthalidone to avoid hypotension edi- operatively, cont BB and SERVANDO. A fib - currently rate controlled, check EKG. Eliquis on hold for surgery tomorrow. Resume post-operatively for CVA prophylaxis. Chads-vasc 3-4. Diabetes - on 3 oral hypo-glycemics. Will hold these for now as she'll be NPO at midnight and give SSI eid-operatively. DVT PPLX - SCD's for now, resume Eliquis post-op Dispo - will likely require >48 hrs hospitalization for urologic surgery and definitive management of her large right kidney stone
[2016-11-13] MEDS: MELATONIN 3 MG TAB PO SCH (21:39)
[2016-11-13] MEDS ORDERED: 1/2 NS 1,000 ML IV SCH (22:00)
[2016-11-13] MEDS: ACETAMINOPHEN 325 MG TAB PO PRN (23:29)
[2016-11-14 06:00] LABS: % IMMATURE GRANULYOCYTES 0.9 % (0.0-1.1); ABSOLUTE IMMATURE GRANULOCYTES 0.08 10^3/uL (0.00-0.10); ADD DIFF? NO; ADD MORPH? NO; ADD SCAN? NO; ATYPICAL LYMPHOCYTE FLAG 0 (0-99); FRAGMENT RBC FLAG 0 (0-99); HEMATOCRIT 24.5 % (38.0-47.0); HEMOGLOBIN 7.8 g/dL (12.6-16.3); LEFT SHIFT FLG 0 (0-99); LIPEMIA HEMOLYSIS FLAG 80 (0-99); MEAN CELL HEMOGLOBIN 30.7 pg (27.9-34.1); MEAN CELL HEMOGLOBIN CONCENTR. 31.8 g/dL (32.4-36.7); MEAN CELL VOLUME 96.5 fL (81.5-99.8); MEAN PLATELET VOLUME 10.2 fL (8.7-11.7); PLATELET CLUMPS FLAG 0 (0-99); PLATELET COUNT 273 10^3/uL (150-400); RED BLOOD CELL COUNT 2.54 10^6/uL (4.18-5.33); RED CELL DISTRIBUTION WIDTH 13.6 % (11.5-15.2)
[2016-11-14 06:02] LABS: CALCIUM 9.1 mg/dL (8.5-10.4); CARBON DIOXIDE 22 mEq/l (22-31); CHLORIDE 109 mEq/L (97-110); CREATININE 1.3 mg/dL (0.6-1.0); GLOMERULAR FILTRATION RATE 40; GLUCOSE 70 mg/dL (70-100)
[2016-11-14 06:09] LABS: ANION GAP 9 mEq/L (8-16); POTASSIUM 3.7 mEq/L (3.5-5.2); SODIUM 140 mEq/L (134-144)
[2016-11-14] MEDS: LEVOTHYROXINE 125 MCG TAB PO SCH (06:18)
[2016-11-14] MEDS: INSULIN LISPRO 100 UNIT/ML SC SCH ×3 (08:18→18:32)
[2016-11-14] MEDS: VALSARTAN 160 MG TAB PO SCH (08:22)
[2016-11-14] MEDS: ARIPiprazole 10 MG TAB PO SCH (08:22)
[2016-11-14] MEDS: buPROPion SR 100 MG TAB PO SCH (08:22)
[2016-11-14] MEDS: CARVEDILOL 25 MG TAB PO SCH ×2 (08:22→18:30)
--- NOTE | 2016-11-14 10:54 | CPEKG ---
Heart Rate: 67 RR Interval: 896 P-R Interval: 196 QRSD Interval: 108 QT Interval: 424 QTC Interval: 448 P [place]: 7 QRS [place]: -39 T Wave [place]: 86 EKG Severity - NORMAL ECG - EKG Impression: SINUS RHYTHM Electronically Signed By: Mj Vega 14-Nov-2016 14:57:24
[2016-11-14] MEDS ORDERED: LIDOCAINE 2% 100 MG/5 ML SYR ONE (11:47)
[2016-11-14] MEDS ORDERED: fentaNYL 250 MCG/5 ML INJ ONE (11:47)
[2016-11-14] MEDS ORDERED: SUCCINYLCHOLINE CHLORIDE*ANESTHESIA ONLY*200 MG/10 ML SYR IVP ONE (11:47)
[2016-11-14] MEDS ORDERED: ETOMIDATE 20 MG/10 ML VIAL ONE (11:47)
[2016-11-14] MEDS ORDERED: PROPOFOL 200 MG/20 ML VIAL ONE ×2 (11:47→12:37)
[2016-11-14] MEDS ORDERED: MIDAZOLAM 2 MG/2 ML VIAL ONE (11:56)
[2016-11-14] MEDS ORDERED: MINERAL OIL 10 ML VIAL TP ONE (12:12)
[2016-11-14] MEDS ORDERED: LIDOCAINE 2% 5 ML SDV ONE (12:36)
--- NOTE | 2016-11-14 15:34 | POSTOPPROG ---
Post Op Note Date of Operation: 11/14/16 Surgeon: Jennifer Mccain (# [id number]) Anesthesia: GET(General Endotracheal) Pre-op Diagnosis: Large vol. right nephrolithiasis Post-op Diagnosis: Large vol. right nephrolithiasis Procedure: Right PCNL Findings: See op note Inf/Abcess present in the surg proc area at time of surgery?: No EBL: 100-500 (~ 250 cc) Complications: None Drains: Nephrostomy (14 Fr. & 8 Fr. nephroureteral stent) Specimen(s): Stone fragments Text Box - Additional Text Additional Text: To RR in stable condition.
[2016-11-14] MEDS ORDERED: ROCURONIUM 50 MG/5 ML VIAL ONE (16:42)
[2016-11-14] MEDS ORDERED: IOPAMIDOL (ISOVUE-300) 150 ML BTL IV ONE (17:44)
[2016-11-14] MEDS ORDERED: SUGAMMADEX SODIUM 200 MG/2 ML VIAL IVP ONE (17:45)
[2016-11-14] MEDS ORDERED: ALBUMIN 5% 250 ML BOTTLE IV ONE (18:01)
[2016-11-14] MEDS ORDERED: INSULIN REGULAR HUMAN 100 UNIT/ML ONE (19:06)
[2016-11-14] MEDS ORDERED: INSULIN LISPRO 100 UNIT/ML SC ONE (19:30)
--- NOTE | 2016-11-14 19:36 | GOP ---
[f rep st] OPERATIVE REPORT DATE OF OPERATION: 11/14/2016 SURGEON: Jennifer Mccain MD ANESTHESIA: General endotracheal. PREOPERATIVE DIAGNOSIS: Large volume right nephrolithiasis, greater than 2 cm. POSTOPERATIVE DIAGNOSIS: Large volume right nephrolithiasis, greater than 2 cm. PROCEDURE PERFORMED: Percutaneous nephrostolithotomy with greater than 1 hour of fluoroscopic guidance. FINDINGS: Innumerable tiny renal calculi many of which were adherent to collecting system urothelium. SPECIMENS: Right renal calculus fragments. ESTIMATED BLOOD LOSS: Approximately 250 cc. INDICATIONS: This woman was found to have large volume right nephrolithiasis, consisting of what appeared to be a partial staghorn calculus involving the lower and mid pole calices as well as the renal pelvis. There was also some stone located within upper pole calyces. The patient underwent previous nephrostomy tube placement, both in the upper and lower poles in preparation for today's surgery. The indications for the procedures as well as potential risks and complications were discussed with the patient preoperatively. She appeared to understand, her questions were answered, and she wished to proceed. Written informed surgical consent was thereafter obtained. DESCRIPTION OF PROCEDURE: The patient was brought to the operating room and administered general endotracheal anesthesia. A [place] catheter was placed to gravity drainage. The patient was then placed carefully in the prone position with all appropriate pressure points padded. Interventional Radiology then proceeded to prep and drape the patient in advance of working through the lower pole nephrostomy access to place a nephroscopic sheath which required the extra long sheath because of the patient's obesity. The upper pole nephrostomy access was used to place a balloon occlusion catheter at the ureteropelvic junction. Dr. Michaels with Interventional Radiology performed these procedures. I then attempted to advance the standard length rigid nephroscope through the working sheath. However, it was not long enough to advance through the sheath and into the renal collecting system. I then intended on inserting the extra long rigid nephroscope through the working sheath. However, there were missing instruments in the tray. Namely, the outer sheath of the scope which would allow for attachment of the irrigation. This could not be found anywhere in the operating room by any of the operating room staff. Therefore, I inserted a flexible cystoscope through the working sheath, and I was able to examine the renal collecting system. There was what appeared to be at least several hundred of very tiny calculi adherent to the collecting system mucosa. There was no cohesive normal sized stone identified. I carefully examined the renal pelvis as well as all of the calices that I could. The only calices I was unable to directly visualize were in the upper pole. For some unclear reason, I was unable to identify the upper pole infundibulum that led to its associated calices. Nonetheless, I used the tip of the flexible cystoscope to carefully scrape the very small adherent calculi from the urothelial collecting system surface that was visualized The adherent calculi had the consistency almost of a paste-like material. I was able to flush the majority of the visualized small stones through the working nephroscopic sheath. I continued to carefully scrape the surface of the visualized urothelium in order to evacuate as much of the stone material as possible. I did not see any role for using a laser or the rigid nephroscope (although the latter was not even available due to the equipment issues noted above). I was able to remove a significant majority of the visible calculi from the renal pelvis and lower pole calices. There was still some remaining calculi in likely an anterior lower to mid pole calyx which I was unable to completely flush out due to their location relative to my working channel. However, I did not feel it would be of great benefit to utilize the upper pole access to place another nephroscopic working sheath in an attempt to access these stones from that location. Once a vast majority of the stone had been flushed from the kidney through the working nephroscopic sheath, I decided to terminate the procedure at this time. The flexible cystoscope was removed. It should be mentioned that intermittent fluoroscopic guidance was used throughout the entirety of the case to help navigate the position and location of the flexible cystoscope. It should also be noted that none of the stone material was significantly radiopaque, making it further difficult to determine exactly how much stone burden was present and remained as I was working. After removing the flexible cystoscope, I then removed the working nephroscopic sheath with the intent of placing a 14-[place]auritan[place] nephrostomy tube through 1 of the existing wires. When I removed the rigid nephroscopic sheath, there was a significant amount of blood that began to exit this site. I immediately placed pressure and also inserted my finger through this access point as deeply as I could. It was difficult to determine the exact location or source of the bleeding. During this time, Anesthesia also noted a fairly significant drop in the patient's blood pressure over the course of about 7 or 8 minutes. After holding pressure as noted above for several minutes, examination of the wound revealed much less bleeding. With Dr. Michaels's assistance, I then continued to position the 14-[place]auritanian nephrostomy tube within the renal pelvis. The pigtail was ultimately deployed once adequate placement in the renal pelvis was confirmed. I then secured this nephrostomy tube to the skin with a 2-0 silk suture. Dressing was then applied. The nephrostomy tube was irrigated thoroughly with abundant amounts of saline. We then decided to place an 8- [place] nephroureteral stent through the lower pole access. Dr. Michaels performed this portion of the procedure. I then secured this nephroureteral stent to the skin surface with a 2-0 silk suture. The nephroureteral stent was capped. After the patient's blood pressure had transiently dropped as noted above, Anesthesia administered 1 unit of packed red blood cells. The patient's pressure quickly returned to baseline, even before administration of the blood. After the dressings were applied, the patient was turned back over to the supine position. She was kept in the operating room until the unit of packed red blood cells had been completely transfused. The patient was then awakened, extubated, transferred to her bed, then taken to the recovery room. She otherwise tolerated the procedure well overall. DISPOSITION: She was transferred to the recovery room in stable condition. She will be transferred the ICU step-down unit for closer observation. I will monitor her hemoglobin and hematocrit closely postoperatively over the next 12 hours. She will also receive frequent nephrostomy tube irrigation to prevent clotting of this access. /[id number]/MODL MTDD
[2016-11-14] MEDS ORDERED: IOPAMIDOL (ISOVUE-300) 100 ML BTL IV ONE (19:41)
[2016-11-14 19:56] LABS: HEMATOCRIT 27.2 % (38.0-47.0); HEMOGLOBIN 8.9 g/dL (12.6-16.3); MEAN CELL HEMOGLOBIN 30.1 pg (27.9-34.1); MEAN CELL HEMOGLOBIN CONCENTR. 32.7 g/dL (32.4-36.7); MEAN CELL VOLUME 91.9 fL (81.5-99.8); RED BLOOD CELL COUNT 2.96 10^6/uL (4.18-5.33); RED CELL DISTRIBUTION WIDTH 14.9 % (11.5-15.2)
[2016-11-14 20:03] LABS: ANION GAP 11 mEq/L (8-16); CALCIUM 8.6 mg/dL (8.5-10.4); CARBON DIOXIDE 19 mEq/l (22-31); CHLORIDE 107 mEq/L (97-110); CREATININE 1.3 mg/dL (0.6-1.0); GLOMERULAR FILTRATION RATE 40; GLUCOSE 247 mg/dL (70-100); POTASSIUM 4.8 mEq/L (3.5-5.2); SODIUM 137 mEq/L (134-144)
[2016-11-14 21:49] LABS: HEMATOCRIT 25.5 % (38.0-47.0); HEMOGLOBIN 8.6 g/dL (12.6-16.3)
[2016-11-14] MEDS: ACETAMINOPHEN 325 MG TAB PO PRN (22:34)
[2016-11-14] MEDS: MELATONIN 3 MG TAB PO SCH (22:34)
[2016-11-15] MEDS: TEMAZEPAM 15 MG CAP PO PRN ×2 (00:41→22:04)
[2016-11-15 05:24] LABS: HEMATOCRIT 21.1 % (38.0-47.0); HEMOGLOBIN 7.1 g/dL (12.6-16.3); MEAN CELL HEMOGLOBIN 30.2 pg (27.9-34.1); MEAN CELL HEMOGLOBIN CONCENTR. 33.6 g/dL (32.4-36.7); MEAN CELL VOLUME 89.8 fL (81.5-99.8); RED BLOOD CELL COUNT 2.35 10^6/uL (4.18-5.33); RED CELL DISTRIBUTION WIDTH 15.7 % (11.5-15.2)
[2016-11-15 06:15] LABS: ANION GAP 7 mEq/L (8-16); CALCIUM 8.4 mg/dL (8.5-10.4); CARBON DIOXIDE 22 mEq/l (22-31); CHLORIDE 110 mEq/L (97-110); CREATININE 1.5 mg/dL (0.6-1.0); GLOMERULAR FILTRATION RATE 34; GLUCOSE 154 mg/dL (70-100); POTASSIUM 4.3 mEq/L (3.5-5.2); SODIUM 139 mEq/L (134-144)
[2016-11-15] MEDS: ACETAMINOPHEN 325 MG TAB PO PRN ×2 (06:24→23:45)
[2016-11-15] MEDS: LEVOTHYROXINE 125 MCG TAB PO SCH (06:24)
[2016-11-15] MEDS: CARVEDILOL 25 MG TAB PO SCH ×2 (08:20→17:59)
[2016-11-15] MEDS: VALSARTAN 160 MG TAB PO SCH (08:20)
[2016-11-15] MEDS: INSULIN LISPRO 100 UNIT/ML SC SCH ×4 (08:21→23:54)
[2016-11-15] MEDS: ARIPiprazole 10 MG TAB PO SCH (08:31)
[2016-11-15] MEDS: buPROPion SR 100 MG TAB PO SCH (08:31)
[2016-11-15 14:37] LABS: HEMATOCRIT 24.8 % (38.0-47.0); HEMOGLOBIN 8.2 g/dL (12.6-16.3)
--- NOTE | 2016-11-15 16:06 | HOSPPROG ---
Hospitalist Progress Note Assessment/Plan: 71 yo F w mod-severe and nephrolithiasis pod1 following cystoscopic removal of stones acute blood loss anemia: transfused 1 unit packed red cells hg 8.4 follow consider repeat transfusion for hg<8 : soft blood pressures but stable off pressors (never required) hold ARB continue BB continue IVF support nephrolithiasis: s/p cystoscopic removal anterograde stent in place as well as perc drain waterman: suspect it can be removed in AM proph: pharm VTE proph contraindicated dm: lispro ss sugars close to goal renal: cr 1.5, slightly > baseline increase IVF dispo: inpt Subjective: tele: tachycardia (likely sinus) this AM. interp by me. case d/w dr teague Objective: Vital Signs Temp Pulse Resp BP Pulse Ox 36.9 C 88 16 94/54 L 98 11/15/16 10:00 11/15/16 14:00 11/15/16 14:00 11/15/16 14:00 11/15/16 14:00 Laboratory Results 11/15/16 14:20 11/15/16 05:00 11/14/16 11/15/16 11/16/16 05:59 05:59 05:59 Intake Total 1290 2788 600 Output Total 1 1425 Balance 1289 1363 600 PT 15.0 SEC (12.0-15.0) 11/13/16 14:20 INR 1.18 (0.83-1.16) H 11/13/16 14:20 - Physical Exam Constitutional: no apparent distress, appears nourished Eyes: PERRL, anicteric sclera Ears, Nose, Mouth, Throat: moist mucous membranes, hearing normal, ears appear normal Cardiovascular: regular rate and rhythym, no murmur, rub, or gallop, systolic murmur Respiratory: no respiratory distress, no rales or rhonchi, clear to auscultation Gastrointestinal: normoactive bowel sounds, soft, non-tender abdomen Genitourinary: waterman in urethra, No no bladder fullness Skin: warm, normal color Musculoskeletal: full muscle strength, no muscle tenderness Neurologic: AAOx3 Psychiatric: interacting appropriately, not anxious ICD10 Worksheet Patient Problems: Problems Problem Status Onset Aortic stenosis Acute Staghorn renal calculus Acute
[2016-11-15] MEDS: NS 1,000 ML IV SCH ×2 (16:54→22:11)
--- NOTE | 2016-11-15 17:59 | SOAPPROG ---
SOAP Progress Note Assessment/Plan: Assessment: POD 1 s/p right PCNL - stable. Orthostatic hypotension - decreased H/H today, likely indicative of hemodilution rather than active bleeding. Her H/H was fairly low preoperatively but, in light of her symptoms and history of aortic stenosis, she would benefit from 1 unit transfusion. Plan: 11/15/16 17:57 Objective: Vital Signs Temp Pulse Resp BP Pulse Ox 36.9 C 92 23 H 101/41 L 94 11/15/16 10:00 11/15/16 16:00 11/15/16 16:00 11/15/16 16:00 11/15/16 16:00 Laboratory Results 11/15/16 14:20 11/15/16 05:00 11/14/16 11/15/16 11/16/16 05:59 05:59 05:59 Intake Total 1290 2788 600 Output Total 1 1425 Balance 1289 1363 600 PT 15.0 SEC (12.0-15.0) 11/13/16 14:20 INR 1.18 (0.83-1.16) H 11/13/16 14:20 ICD10 Worksheet Patient Problems: Problems Problem Status Onset Aortic stenosis Acute Staghorn renal calculus Acute
[2016-11-15] MEDS: MELATONIN 3 MG TAB PO SCH (20:54)
[2016-11-16 04:23] LABS: % IMMATURE GRANULYOCYTES 0.8 % (0.0-1.1); ABSOLUTE IMMATURE GRANULOCYTES 0.07 10^3/uL (0.00-0.10); ADD DIFF? NO; ADD MORPH? YES; ADD SCAN? NO; ATYPICAL LYMPHOCYTE FLAG 0 (0-99); FRAGMENT RBC FLAG 0 (0-99); HEMATOCRIT 20.9 % (38.0-47.0); LEFT SHIFT FLG 0 (0-99); LIPEMIA HEMOLYSIS FLAG 80 (0-99); MEAN CELL HEMOGLOBIN 30.7 pg (27.9-34.1); MEAN CELL VOLUME 92.9 fL (81.5-99.8); MEAN PLATELET VOLUME 10.3 fL (8.7-11.7); PLATELET CLUMPS FLAG 10 (0-99); PLATELET COUNT 186 10^3/uL (150-400); RED BLOOD CELL COUNT 2.25 10^6/uL (4.18-5.33); RED CELL DISTRIBUTION WIDTH 15.7 % (11.5-15.2)
[2016-11-16 04:47] LABS: HEMOGLOBIN 6.9 g/dL (12.6-16.3)
[2016-11-16 06:40] LABS: PLATELET ESTIMATE ADEQUATE (ADEQ)
[2016-11-16 06:44] LABS: HYPOCHROMIA 1+
[2016-11-16 06:45] LABS: POLYCHROMASIA 1+
[2016-11-16] MEDS: LEVOTHYROXINE 125 MCG TAB PO SCH (09:16)
--- NOTE | 2016-11-16 09:17 | SOAPPROG ---
SOAP Progress Note Assessment/Plan: Assessment: POD 1 s/p right PCNL - stable but symptomatically anemic. Reviewed operative findings and procedure performed w/ pt. Plan: 1. Continue nephrostomy drainage w/ flushing through the weekend. Will arrange for nephrostogram and removal in IR next week. 2. Transfuse today. 3. Advance diet. 4. Continue Bush until tomorrow. 5. Ambulate w/ assistance. 6. Case management evaluation for discharge planning purposes. Subjective: No complaints. She was quite dizzy and HR increased to 150 upon standing, per nursing. Objective: Vital Signs Temp Pulse Resp BP Pulse Ox 36.6 C 83 18 132/57 H 99 11/15/16 20:00 11/16/16 06:00 11/16/16 06:00 11/16/16 06:00 11/16/16 06:00 Laboratory Results 11/16/16 04:00 11/15/16 05:00 11/15/16 11/16/16 11/17/16 05:59 05:59 05:59 Intake Total 2788 3787 Output Total 1425 965 Balance 1363 2822 PT 15.0 SEC (12.0-15.0) 11/13/16 14:20 INR 1.18 (0.83-1.16) H 11/13/16 14:20 Physical Exam - Physical Exam General Appearance: alert, no apparent distress, obese Abdomen: non-tender, soft Pelvic Exam: other (urine blood-tinged via Bush) Back: Other (urine bloody via neph tube) Neuro/Psych: alert ICD10 Worksheet Patient Problems: Problems Problem Status Onset Aortic stenosis Acute Staghorn renal calculus Acute
[2016-11-16] MEDS: ARIPiprazole 10 MG TAB PO SCH (09:19)
[2016-11-16] MEDS: CARVEDILOL 25 MG TAB PO SCH ×2 (09:19→17:52)
[2016-11-16] MEDS: INSULIN LISPRO 100 UNIT/ML SC SCH ×3 (09:20→17:51)
[2016-11-16] MEDS: buPROPion SR 100 MG TAB PO SCH (09:20)
--- NOTE | 2016-11-16 10:32 | SOAPPROG ---
SOAP Progress Note Assessment/Plan: Assessment: s/p PCNL Anemia - no signs of acute bleeding but h/h dropped again. s/p 2 units PRBC Plan: d/c waterman follow H/H CT scan if continues to drop 11/16/16 10:26 Subjective: Feels well. Tolerating diet. No SOB, no dizziness. No hematuria, minimal pain. Some nausea this am now resolved. Objective: Vital Signs Temp Pulse Resp BP Pulse Ox 37.0 C 83 24 H 113/58 L 92 11/16/16 08:00 11/16/16 10:00 11/16/16 10:00 11/16/16 10:00 11/16/16 10:00 Laboratory Results 11/16/16 04:00 11/15/16 05:00 11/15/16 11/16/16 11/17/16 05:59 05:59 05:59 Intake Total 2788 3787 Output Total 1425 965 Balance 1363 2822 PT 15.0 SEC (12.0-15.0) 11/13/16 14:20 INR 1.18 (0.83-1.16) H 11/13/16 14:20 Physical Exam - Physical Exam General Appearance: alert Respiratory: No respiratory distress Abdomen: non-tender, soft Pelvic Exam: other (urine clear from neph tube and waterman) Skin: normal color, warm/dry Neuro/Psych: alert, oriented x 3 ICD10 Worksheet Patient Problems: Problems Problem Status Onset Aortic stenosis Acute Staghorn renal calculus Acute
--- NOTE | 2016-11-16 11:21 | HOSPPROG ---
Hospitalist Progress Note Assessment/Plan: 71 yo F w mod-severe and nephrolithiasis pod1 following cystoscopic removal of stones acute blood loss anemia: transfused 1 unit packed red cells hg 6.9 received 1 unit this AM give additional unit follow consider repeat transfusion for hg<8 : soft blood pressures but stable off pressors (never required) hold ARB continue BB continue IVF support nephrolithiasis: s/p cystoscopic removal anterograde stent in place as well as perc drain 11/19 nephrostogram planned waterman: dc today proph: pharm VTE proph contraindicated dm: lispro ss sugars close to goal renal: cr 1.5, slightly > baseline increase IVF repeat today dispo: to pcu inpt Subjective: case discussed w dr oneal. tele: no events, less tachycardia ( interp by me) Objective: Vital Signs Temp Pulse Resp BP Pulse Ox 37.0 C 83 24 H 113/58 L 92 11/16/16 08:00 11/16/16 10:00 11/16/16 10:00 11/16/16 10:00 11/16/16 10:00 Laboratory Results 11/16/16 04:00 11/15/16 05:00 11/15/16 11/16/16 11/17/16 05:59 05:59 05:59 Intake Total 2788 3787 Output Total 1425 965 Balance 1363 2822 PT 15.0 SEC (12.0-15.0) 11/13/16 14:20 INR 1.18 (0.83-1.16) H 11/13/16 14:20 - Physical Exam Constitutional: no apparent distress, appears nourished Eyes: PERRL, anicteric sclera Ears, Nose, Mouth, Throat: moist mucous membranes, hearing normal Cardiovascular: regular rate and rhythym, no murmur, rub, or gallop Respiratory: no respiratory distress, no rales or rhonchi Gastrointestinal: normoactive bowel sounds, soft, non-tender abdomen Genitourinary: no bladder fullness, other (R percutaneous drains w sanguinous drainage), No waterman in urethra Skin: warm, normal color Musculoskeletal: full muscle strength, no muscle tenderness Neurologic: AAOx3, sensation intact bilaterally ICD10 Worksheet Patient Problems: Problems Problem Status Onset Aortic stenosis Acute Staghorn renal calculus Acute
[2016-11-16] MEDS ORDERED: IOPAMIDOL (ISOVUE-300) 100 ML BTL IV ONE (11:53)
[2016-11-16 12:16] LABS: ANION GAP 9 mEq/L (8-16); CALCIUM 8.1 mg/dL (8.5-10.4); CARBON DIOXIDE 20 mEq/l (22-31); CHLORIDE 111 mEq/L (97-110); CREATININE 1.6 mg/dL (0.6-1.0); GLOMERULAR FILTRATION RATE 32; GLUCOSE 180 mg/dL (70-100); POTASSIUM 4.3 mEq/L (3.5-5.2); SODIUM 140 mEq/L (134-144)
[2016-11-16] MEDS: NS 1,000 ML IV SCH ×2 (14:52→20:15)
[2016-11-16] MEDS: ACETAMINOPHEN 325 MG TAB PO PRN (20:12)
[2016-11-16] MEDS: TEMAZEPAM 15 MG CAP PO PRN (22:22)
[2016-11-16] MEDS: MELATONIN 3 MG TAB PO SCH (22:57)
[2016-11-17] MEDS: LEVOTHYROXINE 125 MCG TAB PO SCH (04:26)
[2016-11-17] MEDS: NS 1,000 ML IV SCH (04:26)
[2016-11-17 05:53] LABS: % IMMATURE GRANULYOCYTES 1.1 % (0.0-1.1); ABSOLUTE IMMATURE GRANULOCYTES 0.09 10^3/uL (0.00-0.10); ADD DIFF? NO; ADD MORPH? NO; ADD SCAN? NO; ATYPICAL LYMPHOCYTE FLAG 0 (0-99); FRAGMENT RBC FLAG 0 (0-99); HEMATOCRIT 25.9 % (38.0-47.0); HEMOGLOBIN 8.6 g/dL (12.6-16.3); LEFT SHIFT FLG 0 (0-99); LIPEMIA HEMOLYSIS FLAG 80 (0-99); MEAN CELL HEMOGLOBIN 30.3 pg (27.9-34.1); MEAN CELL HEMOGLOBIN CONCENTR. 33.2 g/dL (32.4-36.7); MEAN CELL VOLUME 91.2 fL (81.5-99.8); PLATELET CLUMPS FLAG 10 (0-99); PLATELET COUNT 191 10^3/uL (150-400); RED BLOOD CELL COUNT 2.84 10^6/uL (4.18-5.33); RED CELL DISTRIBUTION WIDTH 16.7 % (11.5-15.2)
[2016-11-17 06:11] LABS: ANION GAP 8 mEq/L (8-16); CARBON DIOXIDE 20 mEq/l (22-31); CHLORIDE 115 mEq/L (97-110); GLUCOSE 140 mg/dL (70-100); POTASSIUM 3.8 mEq/L (3.5-5.2); SODIUM 143 mEq/L (134-144)
[2016-11-17 06:12] LABS: CALCIUM 7.3 mg/dL (8.5-10.4); CREATININE 1.2 mg/dL (0.6-1.0); GLOMERULAR FILTRATION RATE 44
--- NOTE | 2016-11-17 09:03 | SOAPPROG ---
SOAP Progress Note Assessment/Plan: Assessment: s/p PCNL Anemia - stable after transfusion Plan: Ambulate in halls nephrostogram tomorrow, hopefully can remove tube ? home tomorrow Subjective: Feels well. Tolerating diet. Voiding w/o difficulty. Has not ambulated much. Using IS. Minimal pain. Objective: Vital Signs Temp Pulse Resp BP Pulse Ox 37.1 C 89 16 131/68 H 90 L 11/17/16 08:29 11/17/16 08:29 11/17/16 08:29 11/17/16 08:29 11/17/16 08:29 Laboratory Results 11/17/16 05:44 11/17/16 05:44 11/16/16 11/17/16 11/18/16 05:59 05:59 05:59 Intake Total 3787 2900 Output Total 965 1690 150 Balance 2822 1210 -150 PT 15.0 SEC (12.0-15.0) 11/13/16 14:20 INR 1.18 (0.83-1.16) H 11/13/16 14:20 Physical Exam - Physical Exam General Appearance: alert, no apparent distress Respiratory: No respiratory distress Abdomen: non-tender, soft Skin: normal color Neuro/Psych: oriented x 3 ICD10 Worksheet Patient Problems: Problems Problem Status Onset Aortic stenosis Acute Staghorn renal calculus Acute
[2016-11-17] MEDS: VALSARTAN 160 MG TAB PO SCH (09:38)
[2016-11-17] MEDS: buPROPion SR 100 MG TAB PO SCH (09:38)
[2016-11-17] MEDS: CARVEDILOL 25 MG TAB PO SCH ×2 (09:38→16:29)
[2016-11-17] MEDS: INSULIN LISPRO 100 UNIT/ML SC SCH ×3 (09:39→18:04)
[2016-11-17] MEDS: ARIPiprazole 10 MG TAB PO SCH (10:07)
--- NOTE | 2016-11-17 10:09 | HOSPPROG ---
Hospitalist Progress Note Assessment/Plan: 71 yo F w mod-severe and nephrolithiasis pod1 following cystoscopic removal of stones acute blood loss anemia: transfused 4 units packed red cells stable follow daily : bp's improved continue to hold hold ARB continue BB stop IVF nephrolithiasis: s/p cystoscopic removal anterograde stent in place as well as perc drain 11/19 nephrostogram planned constipation: aggressive bowel regimen waterman: dc today proph: pharm VTE proph contraindicated dm: lispro ss sugars close to goal renal: cr 1.2 dispo: to pcu inpt Subjective: tele: sinus (interp by me). case d/w dr trinidad of urology Objective: Vital Signs Temp Pulse Resp BP Pulse Ox 37.1 C 89 16 131/68 H 90 L 11/17/16 08:29 11/17/16 08:29 11/17/16 08:29 11/17/16 08:29 11/17/16 08:29 Laboratory Results 11/17/16 05:44 11/17/16 05:44 11/16/16 11/17/16 11/18/16 05:59 05:59 05:59 Intake Total 3787 2900 Output Total 965 1690 150 Balance 2822 1210 -150 PT 15.0 SEC (12.0-15.0) 11/13/16 14:20 INR 1.18 (0.83-1.16) H 11/13/16 14:20 - Physical Exam Constitutional: no apparent distress, appears nourished Eyes: PERRL, anicteric sclera Ears, Nose, Mouth, Throat: moist mucous membranes, hearing normal Cardiovascular: regular rate and rhythym, no murmur, rub, or gallop, systolic murmur Respiratory: no respiratory distress, no rales or rhonchi Gastrointestinal: normoactive bowel sounds, soft, non-tender abdomen Genitourinary: no bladder fullness, other (R percutaneous nephrostomy tube c/d/i ), No waterman in urethra Skin: warm, normal color Musculoskeletal: full muscle strength, no muscle tenderness ICD10 Worksheet Patient Problems: Problems Problem Status Onset Aortic stenosis Acute Staghorn renal calculus Acute
[2016-11-17] MEDS: POLYETHYLENE GLYCOL 3350 17 GM PKT PO SCH ×2 (16:29→21:21)
[2016-11-17] MEDS: TEMAZEPAM 15 MG CAP PO PRN (21:20)
[2016-11-17] MEDS: MELATONIN 3 MG TAB PO SCH (21:21)
[2016-11-18 03:58] LABS: % IMMATURE GRANULYOCYTES 0.8 % (0.0-1.1); ABSOLUTE IMMATURE GRANULOCYTES 0.05 10^3/uL (0.00-0.10); ADD DIFF? NO; ADD MORPH? NO; ADD SCAN? NO; ATYPICAL LYMPHOCYTE FLAG 0 (0-99); FRAGMENT RBC FLAG 0 (0-99); HEMATOCRIT 25.3 % (38.0-47.0); HEMOGLOBIN 8.1 g/dL (12.6-16.3); LEFT SHIFT FLG 0 (0-99); LIPEMIA HEMOLYSIS FLAG 80 (0-99); MEAN CELL HEMOGLOBIN 29.6 pg (27.9-34.1); MEAN CELL VOLUME 92.3 fL (81.5-99.8); PLATELET CLUMPS FLAG 0 (0-99); PLATELET COUNT 194 10^3/uL (150-400); RED BLOOD CELL COUNT 2.74 10^6/uL (4.18-5.33); RED CELL DISTRIBUTION WIDTH 16.4 % (11.5-15.2)
[2016-11-18 04:11] LABS: ANION GAP 7 mEq/L (8-16); CALCIUM 7.9 mg/dL (8.5-10.4); CARBON DIOXIDE 23 mEq/l (22-31); CHLORIDE 113 mEq/L (97-110); CREATININE 1.2 mg/dL (0.6-1.0); GLOMERULAR FILTRATION RATE 44; GLUCOSE 128 mg/dL (70-100); POTASSIUM 4.1 mEq/L (3.5-5.2); SODIUM 143 mEq/L (134-144)
[2016-11-18] MEDS: LEVOTHYROXINE 125 MCG TAB PO SCH (06:54)
[2016-11-18] MEDS: POLYETHYLENE GLYCOL 3350 17 GM PKT PO SCH ×2 (07:59→15:54)
[2016-11-18] MEDS: buPROPion SR 100 MG TAB PO SCH (07:59)
[2016-11-18] MEDS: ARIPiprazole 10 MG TAB PO SCH (07:59)
[2016-11-18] MEDS: VALSARTAN 160 MG TAB PO SCH (07:59)
[2016-11-18] MEDS: INSULIN LISPRO 100 UNIT/ML SC SCH ×2 (08:00→13:09)
[2016-11-18] MEDS: CARVEDILOL 25 MG TAB PO SCH (08:00)
--- NOTE | 2016-11-18 10:23 | HOSPPROG ---
Hospitalist Progress Note Assessment/Plan: 71 yo F w mod-severe and nephrolithiasis pod1 following cystoscopic removal of stones acute blood loss anemia: transfused 4 units packed red cells stable follow daily : bp's improved continue to hold hold ARB continue BB stop IVF nephrolithiasis: s/p cystoscopic removal anterograde stent in place as well as perc drain 11/19 nephrostogram planned constipation: aggressive bowel regimen waterman: dc today proph: pharm VTE proph contraindicated 11/18- now that bleeding appears stable, start LMWH if staying past today dm: lispro ss sugars close to goal renal: cr 1.2 dispo: to pcu inpt Subjective: no events telemetry (interp by me). awaiting nephrostogram Objective: Vital Signs Temp Pulse Resp BP Pulse Ox 36.8 C 81 13 139/77 H 90 L 11/18/16 07:22 11/18/16 07:22 11/18/16 07:22 11/18/16 07:22 11/18/16 07:22 Laboratory Results 11/18/16 03:15 11/18/16 03:15 11/17/16 11/18/16 11/19/16 05:59 05:59 05:59 Intake Total 2900 1210 Output Total 1690 1250 Balance 1210 -40 PT 15.0 SEC (12.0-15.0) 11/13/16 14:20 INR 1.18 (0.83-1.16) H 11/13/16 14:20 - Physical Exam Constitutional: no apparent distress, appears nourished Eyes: PERRL, anicteric sclera Ears, Nose, Mouth, Throat: moist mucous membranes, hearing normal, ears appear normal Cardiovascular: regular rate and rhythym, no murmur, rub, or gallop, systolic murmur Respiratory: no respiratory distress, no rales or rhonchi Gastrointestinal: normoactive bowel sounds, soft, non-tender abdomen Genitourinary: no bladder fullness, waterman in urethra Skin: warm, normal color Musculoskeletal: full muscle strength, no muscle tenderness Neurologic: AAOx3, sensation intact bilaterally Psychiatric: interacting appropriately, not anxious Lymph, Heme, Immunologic: no cervical LAD ICD10 Worksheet Patient Problems: Problems Problem Status Onset Aortic stenosis Acute Staghorn renal calculus Acute
[2016-11-18 12:53] VITALS: BP 126/97; PULSE 86; RESP 21; TEMP 98.7; O2SAT 92
--- NOTE | 2016-11-18 13:50 | SOAPPROG ---
SOAP Progress Note Assessment/Plan: Assessment: post op pcnl Plan: Patient ready for discharge. Will have to dc tomorrow to SNF. F/U with Dr Mccain in 3 weeks. 11/18/16 13:49 Subjective: Patient ready to to be dc Objective: Vital Signs Temp Pulse Resp BP Pulse Ox 37.1 C 86 21 H 126/97 H 92 11/18/16 12:00 11/18/16 12:00 11/18/16 12:00 11/18/16 12:00 11/18/16 12:00 Laboratory Results 11/18/16 03:15 11/18/16 03:15 11/17/16 11/18/16 11/19/16 05:59 05:59 05:59 Intake Total 2900 1210 Output Total 1690 1250 Balance 1210 -40 PT 15.0 SEC (12.0-15.0) 11/13/16 14:20 INR 1.18 (0.83-1.16) H 11/13/16 14:20 Physical Exam - Physical Exam General Appearance: alert, no apparent distress Neck: normal inspection Respiratory: No respiratory distress Skin: normal color Neuro/Psych: no motor/sensory deficits ICD10 Worksheet Patient Problems: Problems Problem Status Onset Aortic stenosis Acute Staghorn renal calculus Acute
--- NOTE | 2016-11-18 16:19 | PDIAF ---
- Diagnosis Diagnosis: nephrolithiasis, aortc stenosis Code Status: Full Code - Medication Management Discharge Medications: Medications to Continue on Transfer ARIPiprazole [Abilify 10 mg (*)] 10 mg PO DAILY 10/30/16 [Last Taken 11/13/16] Apixaban [Eliquis] 5 mg PO BID 10/30/16 [Last Taken 11/11/16] Carvedilol [Coreg (*)] 25 mg PO BIDMEAL 10/30/16 [Last Taken 11/13/16] Chlorthalidone [Chlorthalidone 25 mg (*)] 12.5 mg PO DAILY 10/30/16 [Last Taken 11/13/16] Cholecalciferol Vit D3 [Vitamin D3 (*)] 400 units PO DAILY 10/30/16 [Last Taken 11/13/16] Herbals/Supplements -Info Only 1 ea PO DAILY 10/30/16 [Last Taken 11/12/16] Levothyroxine [Synthroid 125 mcg (*)] 125 mcg PO DAILY06 10/30/16 [Last Taken ] Melatonin [Melatonin 3 MG (*)] 1 mg PO HS 10/30/16 [Last Taken 11/12/16] Pioglitazone HCl [Actos 15mg (*)] 15 mg PO DAILY 10/30/16 [Last Taken 11/13/16] Potassium Chloride [Klor-Con 8] 8 meq PO DAILY 10/30/16 [Last Taken 11/13/16] Valsartan [Diovan (*)] 320 mg PO DAILY 10/30/16 [Last Taken 11/13/16] amLODIPine BESYLATE [Norvasc 5 mg (*)] 5 mg PO DAILY 10/30/16 [Last Taken ] buPROPion SR [Wellbutrin 100mg SR (*)] 100 mg PO DAILY 10/30/16 [Last Taken ] metFORMIN HCL [Glucophage 500 mg (*)] 1,000 mg PO BIDMEAL 10/30/16 [Last Taken 11/12/16] glipiZIDE [Glipizide Xl] 2.5 mg PO BID 11/13/16 [Last Taken 11/13/16] Discharge Medications: Refer to the Discharge Home Medication list for PRN reason. - Orders Services needed: Home Care, Registered Nurse, Master Grinding Supervisor, Physical Therapy, Occupational Therapy Home Care Face to Face: I certify that this patient was under my care and that I had the required [id number] encounter meeting the encounter requirements on the discharge day. My findings support the fact that the patient is homebound as defined in CMS Chapter 7 Medicare Benefits Manual 30.1.1, The condition of the patient is such that there exists a normal inability to leave home and consequently, leaving home would require a considerable and taxing effort. - Follow Up Care Current Providers and Referrals: ADYDAY LEDESMA [Other] DAYDAY LEDESMA [Other]
--- NOTE | 2016-11-18 21:35 | GDS ---
[f rep st] DISCHARGE SUMMARY DISCHARGE DIAGNOSES: 1. Nephrolithiasis with hydronephrosis, status post percutaneous nephrolithotomy with stone removal . Please see operative report by Dr. Jennifer Mccain dated 11/14/2016 for further diagnosis. 2. Moderate aortic stenosis. 3. Acute blood loss anemia. HOSPITAL COURSE: Please see admission history and physical by Dr. Tena Correa. The patient prese nted with scheduled admission. She had been diagnosed with these a couple of weeks ago. Procedure was not performed given her moderate to severe aortic stenosis. She underwent elective p rocedure. She had some blood loss anemia. It sounds like the procedure was a bit more complicated than anticipated. She will receive a total of 4 units of red cells. Her discharge hemoglobin was 8 .1. The patient had hemodynamic stability. She had some soft blood pressures that never required presso rs, just volume resuscitation and transfusion. She was maintaining her blood pressure medications. She had some acute kidney injury while here, but her creatinine was 1.2 on the day of discharge, an d this is consistent with her baseline, in fact it is even better. She is discharged to home. She was offered SNF, refused. She is being set up with home PT, OT, home care and RN. /[id number]/MODL
[2016-11-20 18:41] LABS: SOURCE OF STONE RIGHT KIDNEY STONE
[2016-11-20 18:42] LABS: NIDUS NOT OBSERVED
== END 2016-11-18 17:33 | disposition home health service (06) | DRG 660 ==
LOC: FIMAGING 13:00 → F1N 18:19 → F2N 11-14 20:07 → F2W 11-16 14:13
PROVIDERS: ADMIT Internal Medicine; ATTEND Radiology Diagnostic Radiology
PROC: 0T25X0Z Change Drainage Device in Kidney, External Approach (ICD-10-PCS; 2016-11-13)
PROC: 30233N1 Transfusion of Nonautologous Red Blood Cells into Peripheral Vein, Percutaneous Approach (ICD-10-PCS; 2016-11-14)
PROC: 0T764DZ Dilation of Right Ureter with Intraluminal Device, Percutaneous Endoscopic Approach (ICD-10-PCS; principal; 2016-11-14 11:30)
PROC: 0T1 Urinary System, Bypass (ICD-10-PCS; principal; 2016-11-14 11:30)
PROC: 0TC04ZZ Extirpation of Matter from Right Kidney, Percutaneous Endoscopic Approach (ICD-10-PCS; principal; 2016-11-14 11:30)
DX: N13.2 Hydronephrosis with renal and ureteral calculous obstruction (principal); D62 Acute posthemorrhagic anemia; E11.9 Type 2 diabetes mellitus without complications; I10 Essential (primary) hypertension; I48.91 Unspecified atrial fibrillation; I35.0 Nonrheumatic aortic (valve) stenosis; E66.9 Obesity, unspecified
CPT/HCPCS: 82365-90; 97116-GP; 97161-GP; 97165-GO; 97530-GP; 97535-GO; C1725; C1729; C1769; C1894; G8978-GP-CK; G8979-GP-CI; G8987-GO-CI; G8988-GO-CI; J0330; J0696; J1644; J1815; J1956; J2001; J2250; J2405; J2704; J3010; P9016; P9041; Q9967

== ENCOUNTER 2016-11-18 20:52 | Inpatient (IN) | payer OTHER ==
--- NOTE | 2016-11-18 20:57 | EDPHY ---
HPI/HX/ROS/PE/MDM Narrative: CHIEF COMPLAINT: Weakness HPI: The patient is a 71 y/o female arriving via EMS complaining of generalized weakness. She has a history of diabetes, atrial fibrillation, and recent procedure for kidney stones. She was admitted on 11/13/16, 5 days ago, for nephrolithiasis and nephrostomy procedures. While admitted, she was symptomatically anemic and required transfusion prior to discharge home today. Upon attempting to climb the stairs to her 2nd floor apartment this evening, she because extremely weak and slumped to the ground. She called EMS for a lift assist, but ultimately decided to return to the hospital because she feels too weak to perform ADLs. She denies chest pain, cough, fever, dysuria, abdominal pain, or bloody stools. She has not yet resumed her anticoagulant. REVIEW OF SYSTEMS: Aside from elements discussed in the HPI, a comprehensive 10-point review of systems was reviewed and is negative. PMH: diabetes, hypertension, atrial fibrillation - normally on Eliquis, nephrostomy tubes, kidney stones, requires home CPAP SOCIAL HISTORY: Lives in apartment alone Prior medical records reviewed including 5-day admission 11/13/16 for kidney stone procedure. PHYSICAL EXAM: General:Patient is alert, in no acute distress. ENT:Eyes are normal to inspection. ENT inspection normal. Neck: Normal inspection. Full range of motion. Respiratory:No respiratory distress. Breath sounds normal bilaterally. Cardiovascular: Regular rate and rhythm. Strong peripheral pulses. Normal cap refill. Abdomen:The abdomen is nontender to palpation. There are no peritoneal signs. There are normal bowel sounds. Back: Normal to inspection. No tenderness to palpation. Skin: Normal color. No rash. Warm and dry. Extremities: Normal appearance. Full range of motion. Neuro: Oriented x3. Normal motor function. Normal sensory function. ED Course: IV established. Labs drawn including CBC, CHEM, PTPTT, coag. EKG ordered. Patient will require admission due to symptoms and recent discharge. 2104: Spoke with hospitalist service. Dr. Joiner accepts admission. The 12 lead EKG was interpreted by myself. See hard copy and/or "tracemaster" electronic copy for interpretation. Troponin elevated at 0.150. Hct low at 29.4. MDM: This patient presents with failure to thrive after recent discharge from the hospital. She does not complain of chest pain or shortness of breath. Her troponin is elevated although her EKG is negative. Further workup defer to the hospitalist service. - Data Points Laboratory Results: Laboratory Results 11/18/16 21:10 11/18/16 21:10 11/18/16 11/18/16 11/18/16 21:10 21:10 21:10 WBC 9.84 10^3/uL H 10^3/uL (3.80-9.50) RBC 3.29 10^6/uL L 10^6/uL (4.18-5.33) Hgb 9.8 g/dL L g/dL (12.6-16.3) Hct 29.4 % L % (38.0-47.0) MCV 89.4 fL fL (81.5-99.8) MCH 29.8 pg pg (27.9-34.1) MCHC 33.3 g/dL g/dL (32.4-36.7) RDW 16.1 % H % (11.5-15.2) Plt Count 256 10^3/uL D 10^3/uL (150-400) MPV 10.5 fL fL (8.7-11.7) Neut % (Auto) 81.7 % H % (39.3-74.2) Lymph % (Auto) 8.3 % L % (15.0-45.0) Evangeline % (Auto) 7.0 % % (4.5-13.0) Eos % (Auto) 1.7 % % (0.6-7.6) Baso % (Auto) 0.4 % % (0.3-1.7) Nucleat RBC Rel Count 0.0 % % (0.0-0.2) Absolute Neuts (auto) 8.03 10^3/uL H 10^3/uL (1.70-6.50) Absolute Lymphs (auto) 0.82 10^3/uL L 10^3/uL (1.00-3.00) Absolute Monos (auto) 0.69 10^3/uL 10^3/uL (0.30-0.80) Absolute Eos (auto) 0.17 10^3/uL 10^3/uL (0.03-0.40) Absolute Basos (auto) 0.04 10^3/uL 10^3/uL (0.02-0.10) Absolute Nucleated RBC 0.00 10^3/uL 10^3/uL (0-0.01) Immature Gran % 0.9 % % (0.0-1.1) Immature Gran # 0.09 10^3/uL 10^3/uL (0.00-0.10) PT 14.1 SEC SEC (12.0-15.0) INR 1.10 (0.83-1.16) APTT 27.5 SEC SEC (23.0-38.0) Sodium 142 mEq/L mEq/L (134-144) Potassium 4.7 mEq/L mEq/L (3.5-5.2) Chloride 109 mEq/L mEq/L (97-110) Carbon Dioxide 21 mEq/l L mEq/l (22-31) Anion Gap 12 mEq/L mEq/L (8-16) BUN 33 mg/dL H mg/dL (7-23) Creatinine 1.2 mg/dL H mg/dL (0.6-1.0) Estimated GFR 44 Glucose 197 mg/dL H mg/dL (70-100) Calcium 8.7 mg/dL mg/dL (8.5-10.4) Troponin I 0.150 ng/mL H ng/mL (0-0.034) General Time Seen by Provider: 11/18/16 20:52 Initial Vital Signs: Initial Vital Signs Temperature (C) 37.4 C 11/18/16 20:52 Heart Rate 110 H 11/18/16 20:52 Respiratory Rate 18 11/18/16 20:52 Blood Pressure 161/94 H 11/18/16 20:52 O2 Sat (%) 94 11/18/16 20:52 O2 Delivery Mode Room Air Allergies/Adverse Reactions: No Known Allergies Allergy (Verified 10/24/16 17:40) Home Medications: Medication Instructions Recorded ARIPiprazole [Abilify 10 mg (*)] 10 mg PO DAILY 10/30/16 Apixaban [Eliquis] 5 mg PO BID 10/30/16 Carvedilol [Coreg (*)] 25 mg PO BIDMEAL 10/30/16 Chlorthalidone [Chlorthalidone 25 12.5 mg PO DAILY 03/08/17 mg (*)] Herbals/Supplements -Info Only 1 ea PO DAILY 10/30/16 Levothyroxine [Synthroid 125 mcg 125 mcg PO DAILY06 10/30/16 (*)] Melatonin [Melatonin 3 MG (*)] 1 mg PO HS 10/30/16 Pioglitazone HCl [Actos 15mg (*)] 15 mg PO DAILY 10/30/16 Potassium Chloride [Klor-Con 8] 8 meq PO DAILY 10/30/16 Valsartan [Diovan (*)] 320 mg PO DAILY 10/30/16 amLODIPine BESYLATE [Norvasc 5 mg 5 mg PO DAILY 10/30/16 (*)] buPROPion SR [Wellbutrin 100mg SR 100 mg PO DAILY 10/30/16 (*)] metFORMIN HCL [Glucophage 500 mg 1,000 mg PO BIDMEAL 10/30/16 (*)] glipiZIDE [Glipizide Xl] 2.5 mg PO BID 11/13/16 Cholecalciferol Vit D3 [Vitamin D3] 400 units PO DAILY 11/18/16 Departure - Departure Disposition: [facility] Inpatient Acute Clinical Impression: Weakness, Elevated troponin Condition: Fair Report Scribed for: Nguyễn Freire Report Scribed by: Corrine Rosa Date of Report: 11/18/16 Time of Report: 20:57 Physician Review and Approval Statement: Portions of this note were transcribed by an ED scribe. I personally performed the history, physical exam, and medical decision making; and confirm the accuracy of the information in the transcribed note.
[2016-11-18 21:17] LABS: % IMMATURE GRANULYOCYTES 0.9 % (0.0-1.1); ABSOLUTE IMMATURE GRANULOCYTES 0.09 10^3/uL (0.00-0.10); ADD DIFF? NO; ADD MORPH? NO; ADD SCAN? NO; ATYPICAL LYMPHOCYTE FLAG 0 (0-99); FRAGMENT RBC FLAG 0 (0-99); HEMATOCRIT 29.4 % (38.0-47.0); HEMOGLOBIN 9.8 g/dL (12.6-16.3); LEFT SHIFT FLG 10 (0-99); LIPEMIA HEMOLYSIS FLAG 80 (0-99); MEAN CELL HEMOGLOBIN 29.8 pg (27.9-34.1); MEAN CELL HEMOGLOBIN CONCENTR. 33.3 g/dL (32.4-36.7); MEAN CELL VOLUME 89.4 fL (81.5-99.8); MEAN PLATELET VOLUME 10.5 fL (8.7-11.7); PLATELET CLUMPS FLAG 20 (0-99); PLATELET COUNT 256 10^3/uL (150-400); RED BLOOD CELL COUNT 3.29 10^6/uL (4.18-5.33); RED CELL DISTRIBUTION WIDTH 16.1 % (11.5-15.2)
[2016-11-18 21:27] LABS: APTT 27.5 SEC (23.0-38.0); INR 1.1 (0.83-1.16); PROTIME(PATIENT) 14.1 SEC (12.0-15.0)
[2016-11-18 21:29] LABS: ANION GAP 12 mEq/L (8-16); CALCIUM 8.7 mg/dL (8.5-10.4); CARBON DIOXIDE 21 mEq/l (22-31); CHLORIDE 109 mEq/L (97-110); CREATININE 1.2 mg/dL (0.6-1.0); GLOMERULAR FILTRATION RATE 44; GLUCOSE 197 mg/dL (70-100); POTASSIUM 4.7 mEq/L (3.5-5.2); SODIUM 142 mEq/L (134-144)
--- NOTE | 2016-11-18 22:20 | CPEKG ---
Heart Rate: 91 RR Interval: 659 P-R Interval: 180 QRSD Interval: 104 QT Interval: 372 QTC Interval: 458 P [place]: 59 QRS [place]: -45 T Wave [place]: 68 EKG Severity - ABNORMAL ECG - EKG Impression: SINUS RHYTHM EKG Impression: PROBABLE LEFT ATRIAL ABNORMALITY EKG Impression: LEFT ANTERIOR FASCICULAR BLOCK EKG Impression: No significant change from November 14, 2016 Electronically Signed By: Wally Estes 19-Nov-2016 18:49:08
--- NOTE | 2016-11-18 22:40 | GHP ---
[f rep st] HISTORY AND PHYSICAL DATE OF ADMISSION: 11/18/2016 CHIEF COMPLAINT: Fall. HISTORY OF PRESENT ILLNESS: This is a 71-year-old female, who was discharged from [facility] today after she was admitted on the of this month for kidney stones. The patient was taken to the operating room on 2016, where she had percutaneous nephrostolithotomy performed for a large volume right kidney stone. During the patient's hospital stay, it was recommended that she go to a chcf facility which she refused. During the hospitalization, she had a bout of acute blood loss anemia where she was transfused 4 units of packed red blood cells. She received 1 unit on the , 1 unit on the , and 2 units on the . Upon arriving home today, she fell walking up the stairs to her apartment when her "legs gave out." Her friend then helped her into her house where she was not able to get into her own bathroom and sustained a 2nd fall. She denies any head trauma or loss of consciousness. She denies any syncope. She has not been having any fevers or chills. She has not noticed any new bleeding. PAST MEDICAL HISTORY: 1. Atrial fibrillation. 2. Diabetes mellitus type 2. 3. Hypertension. 4. Aortic stenosis. 5. Depression. PAST SURGICAL HISTORY: 1. Appendectomy. 2. Recent percutaneous nephrostolithotomy done 11/14/[address] Mccain. HOME MEDICATIONS: Reviewed. Refer to [facility] for details. ALLERGIES: No known drug allergies. SOCIAL HISTORY: The patient lives in an apartment in [place]. She is a former smoker. She denies any alcohol or illicit drug use. FAMILY HISTORY: Reviewed and noncontributory. REVIEW OF SYSTEMS: Comprehensive 10-point review of systems was done and is negative, except for as mentioned in the HPI. PHYSICAL EXAMINATION: VITAL SIGNS: Blood pressure 161/94, pulse of 110, respiratory rate 18, O2 saturation 94% on room air. Temperature afebrile. GENERAL: No acute distress. HEAD: Normocephalic, atraumatic. Eyes are PERRLA. Sclerae anicteric. MOUTH: Moist mucous membranes. NECK: Supple. No lymphadenopathy. CARDIOVASCULAR: S1-S2, tachycardic with a holosystolic murmur. There is no JVD. There is no lower extremity edema. PULMONARY: Lungs are clear. No wheezes, rales, or rhonchi. ABDOMEN: Soft, nontender, nondistended. No guarding or rebound tenderness. Normoactive bowel sounds. EXTREMITIES: No clubbing or cyanosis. NEURO: Cranial nerves 2-12 grossly intact. No focal motor or sensory deficits. Skin clear. No rashes. DIAGNOSTICS: WBC is 9.84, hemoglobin 9.8, hematocrit 29.4, platelets 256. INR 1.1. Sodium 142, potassium 2.7, chloride 109, CO2 of 21, BUN 33, creatinine 1.2 , glucose 197, troponin was elevated at 0.150. ASSESSMENT AND PLAN: This is a 71-year-old female, discharged from [facility] today. It was recommended that she go to chcf but was brought back to the hospital after she became weak at home and was unable to get back into her apartment sustaining a mechanical fall. 1. Weakness and deconditioning in the setting of recent hospitalization. PLAN: It does not appear that the patient sustained any significant injury during her fall. She is now agreeable to proceed with chcf facility placement. 2. Elevated troponin with history of aortic stenosis and currently with some tachycardia. Plan: A EKG was done that I personally visualized and interpreted was negative for acute ischemic changes. She is not complaining of any chest pain or shortness of breath. Will send a D-Dimer and consider CT angio of the chest to evaluate for PE if her tachycardia persists. She has been off anticoagulation since her recent surgery and subsequent bleeding. 3. Anemia that appears to be improving with recent blood transfusions during this last hospital stay. Plan:Continue to monitor for signs and symptoms of bleeding and transfuse per protocol. 4. History of A-fib Plan: Continue home dose of Eliquis The patient will be admitted to the hospital under observation in hopes that she can be placed at a chcf facility once she is deemed medically stable. /[id number]/MODL MTDD
[2016-11-19] MEDS: LEVOTHYROXINE 125 MCG TAB PO SCH (05:44)
[2016-11-19] MEDS ORDERED: metFORMIN HCL 500 MG TAB PO SCH (08:00)
[2016-11-19] MEDS: APIXABAN 5 MG TAB PO SCH ×2 (08:11→21:11)
[2016-11-19] MEDS: ASPIRIN EC 81 MG TAB PO SCH (08:11)
[2016-11-19] MEDS: buPROPion SR 100 MG TAB PO SCH (08:11)
[2016-11-19] MEDS: CHLORTHALIDONE 25 MG TAB PO SCH (08:12)
[2016-11-19] MEDS: amLODIPine BESYLATE 5 MG TAB PO SCH (08:12)
[2016-11-19] MEDS: CHOLECALCIFEROL VIT D3 1,000 UNITS TAB PO SCH (08:12)
[2016-11-19] MEDS: VALSARTAN 160 MG TAB PO SCH (08:12)
[2016-11-19] MEDS: ARIPiprazole 10 MG TAB PO SCH (08:13)
[2016-11-19] MEDS: PIOGLITAZONE HCL 15 MG TAB PO SCH (08:13)
[2016-11-19] MEDS ORDERED: Herbals/Supplements -Info Only PO SCH (09:00)
[2016-11-19] MEDS: CARVEDILOL 25 MG TAB PO SCH ×2 (11:33→18:09)
--- NOTE | 2016-11-19 12:49 | ECHO ---
[id number] + + [id number] : : [place] [address] : : [phone] + Adult Echocardiographic Report + -------+ :Name: SHEILA KAROLYN MStudy Date: 11/19/2016 12:13 PM : : Hospital Admission Number: [id number] Locati on: 208: :: 1945 Gender: Female : :Age: 71 yrs Race: WH : :Reason For Study: Elevated troponin : + -------+ Doppler Measurements \T\ Calculations MV V2 max: 217.2 cm/sec Ao mean P.0 mmHg TR max melisa: 289.1 cm/sec MV max P.9 mmHg Ao V2 mean: 245.3 cm/sec TR max P.4 mmHg MV V2 mean: 145.8 cm/sec Ao V2 VTI: 81.6 cm RAP systole: 10.0 mmHg MV mean P.6 mmHg RVSP(TR): 43.4 mmHg MV V2 VTI: 56.5 cm Left Ventricle There is moderate concentric left ventricular hypertrophy. The left ventricular wall motion is normal. Aortic Valve Moderate to severe valvular aortic stenosis. Conclusion Limited 2-D echo (just had a complete on 10-30-16). There is moderate concentric left ventricular hypertrophy. The left ventricular wall motion is normal. Final Reading Physician: Ashvin Liu signed on 11/19/2016 12:47 PM Ordering Physician: Dona Avery Performed By: Christen Elder, TRAVONCS
[2016-11-19] MEDS ORDERED: IOPAMIDOL (ISOVUE 370) 100 ML BTL IV ONE (13:39)
--- NOTE | 2016-11-19 14:39 | CPEKG ---
Heart Rate: 74 RR Interval: 811 P-R Interval: 192 QRSD Interval: 110 QT Interval: 384 QTC Interval: 426 P [place]: 24 QRS [place]: -48 T Wave [place]: 21 EKG Severity - ABNORMAL ECG - EKG Impression: SINUS RHYTHM EKG Impression: LEFT ANTERIOR FASCICULAR BLOCK EKG Impression: POOR R WAVE PROGRESSION, ANTERIOR LEADS, Consider old anterior myocardial EKG Impression: infarction. This is more pronounced since November 18, 2016 Electronically Signed By: Wally Estes 19-Nov-2016 18:47:44
--- NOTE | 2016-11-19 16:27 | HOSPPROG ---
Hospitalist Progress Note Assessment/Plan: 71 yo F w mod severe , recent urologic procedure here w fall fall: likely mechanical/weakness as she was recommended for snf and declined no pe, no injury she will need snf + trop: suspect strain from falls, no wma on echo non ischemic ekg (interp by me) aspirin added on carvedilol EMILIANO: cr improved lowest its been this year proph: add lmwh if staying past tomorrow dispo: inpt Subjective: no events tele)interp by me). ct pe study neg (images reviewed/ interp by me) Objective: Vital Signs Temp Pulse Resp BP Pulse Ox 36.6 C 88 16 125/74 H 92 11/19/16 15:22 11/19/16 15:22 11/19/16 15:22 11/19/16 15:22 11/19/16 15:22 PT 14.1 SEC (12.0-15.0) 11/18/16 21:10 INR 1.10 (0.83-1.16) 11/18/16 21:10 - Physical Exam Constitutional: no apparent distress, appears nourished Eyes: PERRL, anicteric sclera Ears, Nose, Mouth, Throat: moist mucous membranes, hearing normal Cardiovascular: regular rate and rhythym, no murmur, rub, or gallop, systolic murmur Respiratory: no respiratory distress, no rales or rhonchi Gastrointestinal: normoactive bowel sounds, soft, non-tender abdomen Genitourinary: No waterman in urethra Skin: warm, normal color Musculoskeletal: full muscle strength, no muscle tenderness Neurologic: AAOx3, sensation intact bilaterally Psychiatric: interacting appropriately ICD10 Worksheet Patient Problems: Problems Problem Status Onset Elevated troponin Acute Weakness Acute Aortic stenosis Acute Staghorn renal calculus Acute
[2016-11-19] MEDS ORDERED: TEMAZEPAM 15 MG CAP PO PRN (20:53)
[2016-11-19] MEDS: MELATONIN 3 MG TAB PO SCH ×2 (21:10→21:11)
[2016-11-20] MEDS: LEVOTHYROXINE 125 MCG TAB PO SCH (06:23)
[2016-11-20] MEDS: PIOGLITAZONE HCL 15 MG TAB PO SCH (08:26)
[2016-11-20] MEDS: APIXABAN 5 MG TAB PO SCH (08:26)
[2016-11-20] MEDS: VALSARTAN 160 MG TAB PO SCH (08:26)
[2016-11-20] MEDS: ASPIRIN EC 81 MG TAB PO SCH (08:27)
[2016-11-20] MEDS: ARIPiprazole 10 MG TAB PO SCH (08:27)
[2016-11-20] MEDS: buPROPion SR 100 MG TAB PO SCH (08:27)
[2016-11-20] MEDS: CARVEDILOL 25 MG TAB PO SCH ×2 (08:27→17:07)
[2016-11-20] MEDS: CHOLECALCIFEROL VIT D3 1,000 UNITS TAB PO SCH (08:27)
[2016-11-20] MEDS: amLODIPine BESYLATE 5 MG TAB PO SCH (08:28)
[2016-11-20] MEDS: CHLORTHALIDONE 25 MG TAB PO SCH (08:28)
--- NOTE | 2016-11-20 08:45 | HOSPPROG ---
Hospitalist Progress Note Assessment/Plan: #Mechanical fall: had previously declined SNF placement #Indeterminate troponin: no WMA on TTE, CTA negative for PE. Suspect demand with acute fall in setting of underlying #Moderate/severe : currently asymptomatic appreciate Cardiology consultation. Consider possible FELIPE and right/left heart cath. Dr. Thomas to talk with her primary Train Operator, Dr. Acosta #Failure to thrive: declined SNF in past, but now willing. Accepted to [facility] #Paroxsymal a fib: cont Eliquis, Coreg #Recent kidney stones: s/p percutaneous nephrolithotomy 11/[address] Mccain. Nephrostomy tube had been removed. #Benign HTN: good control on home meds #Hypothyroidism: LT4 #Controlled DMII: glipizide, metformin #Disp: awaiting further recs from cardiology for any further evaluation Subjective: no CP, SOB Objective: Vital Signs Temp Pulse Resp BP Pulse Ox 36.9 C 65 16 121/66 H 90 L 11/20/16 05:00 11/20/16 05:00 11/20/16 05:00 11/20/16 05:00 11/20/16 05:00 11/19/16 11/20/16 11/21/16 05:59 05:59 05:59 Intake Total 550 Output Total 320 Balance 230 PT 14.1 SEC (12.0-15.0) 11/18/16 21:10 INR 1.10 (0.83-1.16) 11/18/16 21:10 - Physical Exam Constitutional: no apparent distress, other (pale) Ears, Nose, Mouth, Throat: moist mucous membranes, hearing normal Cardiovascular: regular rate and rhythym, systolic murmur, diastolic murmur, JVD (none), edema (+1 ankle edema, BL) Respiratory: no respiratory distress, no rales or rhonchi Gastrointestinal: normoactive bowel sounds, soft, non-tender abdomen Genitourinary: no bladder fullness Skin: warm Musculoskeletal: full muscle strength Neurologic: AAOx3 ICD10 Worksheet Patient Problems: Problems Problem Status Onset Elevated troponin Acute Weakness Acute Aortic stenosis Acute Staghorn renal calculus Acute
--- NOTE | 2016-11-20 09:16 | PDCARCONS ---
Cardiology Consult Reason for Consult: Failure to thrive valvular heart disease Chief Complaint: I have been in the hospital for ever! Requesting Physician: Prieto History of Present Illness: 71-year-old female followed by my partner Dr. Sanjay Acosat. Admitted to the hospital after failing to thrive at home. She has a known history of valvular heart disease characterized by moderate mitral stenosis, moderate to severe aortic stenosis. She has preserved left ventricular function with left ventricular hypertrophy. She has significant left atrial enlargement associated with paroxysmal atrial fibrillation. She has been chronically anticoagulated. Comorbidities include longstanding diabetes, hypertension. She is obese with a sedentary lifestyle. Medical therapy has been complicated by depression. Her atrial fibrillation has been exacerbated by sleep apnea and hypothyroidism. Patient was recently in the hospital after undergoing stent placement for nephrolithiasis. She was cleared for surgery on the 30 of October. Echocardiogram at that time showed normal left ventricular function was stable valvular heart disease and ejection fraction 75%. Her EKG at that time showed sinus rhythm with intraventricular conduction delay. She tolerated anesthesia well without complications. She was sent home yesterday. She tried to climb stairs to get to her apartment. Her legs collapsed from weakness and she was brought back to the hospital and readmitted. This morning she is feeling depressed. She denies any syncope or near syncope associated with the collapse. She had no palpitations or chest pain. She has no history of PND orthopnea. Cardiac risk includes hypertension, diabetes, hyperlipidemia. Risk for atrial fibrillation include sleep apnea, hypothyroidism on replacement , valvular heart disease, hypertension. Patient has no history of clinical heart failure, clinical coronary artery disease. Outpatient medicines: Ambulatory Orders ARIPiprazole [Abilify 10 mg (*)] 10 mg PO DAILY 10/30/16 Apixaban [Eliquis] 5 mg PO BID 10/30/16 Carvedilol [Coreg (*)] 25 mg PO BIDMEAL 10/30/16 Chlorthalidone [Chlorthalidone 25 mg (*)] 12.5 mg PO DAILY 10/30/16 Herbals/Supplements -Info Only 1 ea PO DAILY 10/30/16 Levothyroxine [Synthroid 125 mcg (*)] 125 mcg PO DAILY06 10/30/16 Melatonin [Melatonin 3 MG (*)] 1 mg PO HS 10/30/16 Pioglitazone HCl [Actos 15mg (*)] 15 mg PO DAILY 10/30/16 Potassium Chloride [Klor-Con 8] 8 meq PO DAILY 10/30/16 Valsartan [Diovan (*)] 320 mg PO DAILY 10/30/16 amLODIPine BESYLATE [Norvasc 5 mg (*)] 5 mg PO DAILY 10/30/16 buPROPion SR [Wellbutrin 100mg SR (*)] 100 mg PO DAILY 10/30/16 metFORMIN HCL [Glucophage 500 mg (*)] 1,000 mg PO BIDMEAL 10/30/16 glipiZIDE [Glipizide Xl] 2.5 mg PO BID 11/13/16 Cholecalciferol Vit D3 [Vitamin D3] 400 units PO DAILY 11/18/16 History Information - Allergies/Home Medication List Allergies/Adverse Reactions: No Known Allergies Allergy (Verified 10/24/16 17:40) Home Medications: ARIPiprazole [Abilify 10 mg (*)] 10 mg PO DAILY 10/30/16 [Last Taken 11/18/16 08 :00] Apixaban [Eliquis] 5 mg PO BID 10/30/16 [Last Taken 11/11/16] Carvedilol [Coreg (*)] 25 mg PO BIDMEAL 10/30/16 [Last Taken 11/18/16 08:00] Chlorthalidone [Chlorthalidone 25 mg (*)] 12.5 mg PO DAILY 10/30/16 [Last Taken 11/18/16 08:00] Herbals/Supplements -Info Only 1 ea PO DAILY 10/30/16 [Last Taken 11/12/16] Levothyroxine [Synthroid 125 mcg (*)] 125 mcg PO DAILY06 10/30/16 [Last Taken 08:00] Melatonin [Melatonin 3 MG (*)] 1 mg PO HS 10/30/16 [Last Taken 11/17/16 21:00] Pioglitazone HCl [Actos 15mg (*)] 15 mg PO DAILY 10/30/16 [Last Taken 11/18/16 08:00] Potassium Chloride [Klor-Con 8] 8 meq PO DAILY 10/30/16 [Last Taken 11/18/16 08: 00] Valsartan [Diovan (*)] 320 mg PO DAILY 10/30/16 [Last Taken 11/18/16 08:00] amLODIPine BESYLATE [Norvasc 5 mg (*)] 5 mg PO DAILY 10/30/16 [Last Taken 08:00] buPROPion SR [Wellbutrin 100mg SR (*)] 100 mg PO DAILY 10/30/16 [Last Taken 08:00] metFORMIN HCL [Glucophage 500 mg (*)] 1,000 mg PO BIDMEAL 10/30/16 [Last Taken 11/18/16 08:00] glipiZIDE [Glipizide Xl] 2.5 mg PO BID 11/13/16 [Last Taken 11/18/16 08:00] Cholecalciferol Vit D3 [Vitamin D3] 400 units PO DAILY 11/18/16 [Last Taken 08:00] I have personally reviewed and updated: family history, medical history, social history, surgical history - Past Medical History diabetes type 2, hypertension, hyperlipidemia - Family History Positive for: non-pertinent - Social History Smoking Status: Former smoker Alcohol Use: None Drug Use: None Additional social history: Patient lives alone. She has no family or support other than friends. She has been sedentary for several years. Her most active time included walking. She has been today's reading and playing computer games. Cardiac History - Cardiac History Cardiac Risk Factors: hypertension (>140/90), lipidemia, diabetes mellitus, age > 65 Age in Years: 65-74 Sex: Female Congestive Heart Failure History: No Hypertension History: Yes Stroke/TIA/Thromboembolism History: No Vascular Disease History: No Diabetes Mellitus: Yes [id number] Score: 5\ Physical Exam Temp Pulse Resp BP Pulse Ox 36.9 C 65 16 121/66 H 90 L 11/20/16 05:00 11/20/16 05:00 11/20/16 05:00 11/20/16 05:00 11/20/16 05:00 Constitutional: no apparent distress Eyes: pale conjunctiva Ears, Nose, Mouth, Throat: moist mucous membranes, poor dentition Cardiovascular: regular rate and rhythym, systolic murmur, diastolic murmur, pulses symmetric bilaterally, No JVD Peripheral Pulses: 1+: carotid (R), carotid (L), dorsalis-pedis (R), dorsalis- pedis (L) Respiratory: no respiratory distress, no rales or rhonchi, clear to auscultation Gastrointestinal: normoactive bowel sounds, distension, other ( Tympanitic), No hepatosplenomegally Skin: warm, other ( upper extremity ecchymoses), No pressure ulcer Musculoskeletal: other, No asymmetric calves Neurologic: AAOx3, No facial droop Psychiatric: interacting appropriately, depressed, flat affect Lymph, Heme, Immunologic: no cervical LAD, no supraclavicular LAD Lab and Imaging 11/18/16 21:10 11/18/16 21:10 WBC 9.84 10^3/uL (3.80-9.50) H 11/18/16 21:10 RBC 3.29 10^6/uL (4.18-5.33) L 11/18/16 21:10 Hgb 9.8 g/dL (12.6-16.3) L 11/18/16 21:10 Hct 29.4 % (38.0-47.0) L 11/18/16 21:10 MCV 89.4 fL (81.5-99.8) 11/18/16 21:10 MCH 29.8 pg (27.9-34.1) 11/18/16 21:10 MCHC 33.3 g/dL (32.4-36.7) 11/18/16 21:10 RDW 16.1 % (11.5-15.2) H 11/18/16 21:10 Plt Count 256 10^3/uL (150-400) D 11/18/16 21:10 MPV 10.5 fL (8.7-11.7) 11/18/16 21:10 Neut % (Auto) 81.7 % (39.3-74.2) H 11/18/16 21:10 Lymph % (Auto) 8.3 % (15.0-45.0) L 11/18/16 21:10 [place] % (Auto) 7.0 % (4.5-13.0) 11/18/16 21:10 Eos % (Auto) 1.7 % (0.6-7.6) 11/18/16 21:10 Baso % (Auto) 0.4 % (0.3-1.7) 11/18/16 21:10 Nucleat RBC Rel Count 0.0 % (0.0-0.2) 11/18/16 21:10 Absolute Neuts (auto) 8.03 10^3/uL (1.70-6.50) H 11/18/16 21:10 Absolute Lymphs (auto) 0.82 10^3/uL (1.00-3.00) L 11/18/16 21:10 Absolute Monos (auto) 0.69 10^3/uL (0.30-0.80) 11/18/16 21:10 Absolute Eos (auto) 0.17 10^3/uL (0.03-0.40) 11/18/16 21:10 Absolute Basos (auto) 0.04 10^3/uL (0.02-0.10) 11/18/16 21:10 Absolute Nucleated RBC 0.00 10^3/uL (0-0.01) 11/18/16 21:10 Immature Gran % 0.9 % (0.0-1.1) 11/18/16 21:10 Immature Gran # 0.09 10^3/uL (0.00-0.10) 11/18/16 21:10 PT 14.1 SEC (12.0-15.0) 11/18/16 21:10 INR 1.10 (0.83-1.16) 11/18/16 21:10 APTT 27.5 SEC (23.0-38.0) 11/18/16 21:10 D-Dimer 3.88 ug/mLFEU (0.00-0.50) H 11/18/16 21:10 Sodium 142 mEq/L (134-144) 11/18/16 21:10 Potassium 4.7 mEq/L (3.5-5.2) 11/18/16 21:10 Chloride 109 mEq/L (97-110) 11/18/16 21:10 Carbon Dioxide 21 mEq/l (22-31) L 11/18/16 21:10 Anion Gap 12 mEq/L (8-16) 11/18/16 21:10 BUN 33 mg/dL (7-23) H 11/18/16 21:10 Creatinine 1.2 mg/dL (0.6-1.0) H 11/18/16 21:10 Estimated GFR 44 11/18/16 21:10 Glucose 197 mg/dL (70-100) H 11/18/16 21:10 Calcium 8.7 mg/dL (8.5-10.4) 11/18/16 21:10 Troponin I 0.230 ng/mL (0-0.034) H 11/19/16 14:20 Laboratory Tests 11/18/16 11/19/16 11/19/16 21:10 00:05 03:32 Troponin I 0.150 H 0.366 H 0.484 H 11/19/16 14:20 Troponin I 0.230 H Interpretation: CT scan reveals atherosclerosis with coronary artery disease, no PE. Small right pleural effusion. EKG additional interpertation: EKG reveals sinus rhythm with intraventricular conduction delay. No EKG changes from the 8th. Echocardiogram: Reviewed primarily. A/P Assessment: Problem list: Valvular heart disease characterized by diffuse moderate to severe aortic stenosis, moderate mitral stenosis. Coronary artery disease by CT scanning with rise in troponin and baseline abnormal EKG. Paroxysmal atrial fibrillation currently in sinus rhythm. Chronically anticoagulated. Hypertension. Hyperlipidemia. Obstructive sleep apnea. Obesity. Depression. Anemia. Impression: failure to thrive due to complex medical problems including all of above. At the present time her valvular heart disease is stable and not rapidly changing. Based on her age, CT findings, and risks she has significant likelihood of obstructive coronary artery disease. Patient has atrial fibrillation history is currently not contributing. Blood pressure, hyperlipidemia are well managed. Postoperative anemia is also likely not helping. Deconditioning related to significant hospitalization and chronic sedentary lifestyle. Plan: Discussion: The most aggressive option at this time from a cardiac point of view would be invasive evaluation including transesophageal echocardiogram followed by right left heart catheterization to determine surgical eligibility. With her multiple comorbidities including recent surgery, anemia, obesity, depression whether this is marte at this time is unclear to me. Will discuss with her primary care circulation librarian Dr. Acosta. Will visit with the patient further this afternoon. In the short term recommend continued control blood pressure, resumption of anticoagulation, aggressive rehabilitation. Past Medical History - Personal History Current Tetanus/Diphtheria Vaccine: Unsure Current Tetanus Diphtheria and Acellular Pertussis (TDAP): Unsure - Medical/Surgical History Hx Asthma: Yes Hx Chronic Respiratory Disease: No Hx Cardiac Disease: No Hx Diabetes: Yes Hx Renal Disease: No Hx Alcoholism: No Hx Cirrhosis: No Hx HIV/AIDS: No Hx Splenectomy or Spleen Trauma: No Other PMH: DM 2, kidney stones, HTN, aortic stenosis, afib, depression, appy, nephrostolithotomy, VIRGIE-CPAP at night - Social History Smoking Status: Former smoker Review of Systems - Review of Systems Constitutional: weakness, weight loss. denies: chills, fever EENTM: no symptoms reported Respiratory: no symptoms reported Cardiac: no symptoms reported Gastrointestinal/Abdominal: diarrhea Genitourinary: no symptoms Musculoskelatal: no symptoms Skin: no symptoms Neurological: depressed, weakness Hematologic/Lymphatic: no symptoms reported Immunologic/allergic: no symptoms reported
--- NOTE | 2016-11-20 14:42 | GCON ---
[f rep st] CONSULTATION DATE OF CONSULTATION: 11/20/2016 REASON FOR CONSULT: Recent fall, post percutaneous nephrolithotomy. HISTORY OF PRESENT ILLNESS: This is a 71-year-old female well known to our office who on November 10 had a right-sided PCNL for a kidney stone with Dr. Mccain. I had actually seen her on November 15 j ust prior to her discharge. Nephrostomy tube had been removed, and she was to be discharged in good condition. It was recommended at that time that she be discharged to a fpc facility, w [facility] she had declined; however, upon return to her home she collapsed and was brought back by EMS to the emergency room. She is denying flank pain, hematuria. PAST MEDICAL HISTORY: Includes diabetes, aortic stenosis, depression, hypertension, atrial fibrilla tion, nephrostomy tube placement, kidney stones, is on CPAP at home, SOCIAL HISTORY: Lives alone in an apartment. PAST SURGICAL HISTORY: Includes appendectomy, as mentioned recent PCNL. MEDICATIONS: Reviewed in CRMnext. ALLERGIES: No known drug allergies. FAMILY HISTORY: Not contributory. REVIEW OF SYSTEMS: 10-point review of systems negative except as mentioned in the HPI. PHYSICAL EXAM: VITAL SIGNS: Blood pressure 117/66, heart rate 77, respirations 15, O2 94 on room a ir, temperature 36.9. GENERAL: Well-developed, well-nourished female, in no acute distress. HEENT : Normocephalic, atraumatic. Extraocular movements intact. NECK: Supple. No lymphadenopathy. T rachea midline. RESPIRATORY: No accessory or respiratory muscle use. CARDIAC: Regular rate and r hythm. Mild lower extremity edema. No obvious JVD. GI: Abdomen: Soft, nondistended, nontender t o palpation. No hepatosplenomegaly on palpation. : No tenderness over the right or left flank. No bladder distention or tenderness to palpation. INTEGUMENT: No obvious rashes or lesions other than bruising on the left arm. NEURO: Patient was alert and oriented. Affect appropriate to situa tion. MUSCULOSKELETAL: She was supine while examined but moving all 4 extremities without difficul ty. LABS: White blood cell count 9.4, hemoglobin 9.8, hematocrit 29.4, platelets 256. Coags: PT 14.1. Chemistry: Sodium 142, potassium 4.7, chloride 109, carbon dioxide 21, anion gap 12, BUN 33, crea tinine 1.2, glucose 197, calcium 8.7. Troponin 0.15. ASSESSMENT: Multiple comorbidities post percutaneous nephrolithotomy. PLAN: Does not appear that the patient's recent surgery is contributing to any of her symptoms duri ng this rehospitalization. Will appreciate the input from Cardiology and the hospitalist team. Derick hahn be happy to assist with any additional care if needed on the patient. /[id number]/MODL
[2016-11-20 15:31] VITALS: BP 128/59; PULSE 84; RESP 14; TEMP 97.8; O2SAT 92
--- NOTE | 2016-11-20 16:03 | PDIAF ---
- Diagnosis Code Status: Full Code - Medication Management Discharge Medications: Medications to Continue on Transfer ARIPiprazole [Abilify 10 mg (*)] 10 mg PO DAILY 10/30/16 [Last Taken 11/18/16 08 :00] Apixaban [Eliquis] 5 mg PO BID 10/30/16 [Last Taken 11/11/16] Carvedilol [Coreg (*)] 25 mg PO BIDMEAL 10/30/16 [Last Taken 11/18/16 08:00] Chlorthalidone [Chlorthalidone 25 mg (*)] 12.5 mg PO DAILY 10/30/16 [Last Taken 11/18/16 08:00] Herbals/Supplements -Info Only 1 ea PO DAILY 10/30/16 [Last Taken 11/12/16] Levothyroxine [Synthroid 125 mcg (*)] 125 mcg PO DAILY06 10/30/16 [Last Taken 08:00] Melatonin [Melatonin 3 MG (*)] 1 mg PO HS 10/30/16 [Last Taken 11/17/16 21:00] Pioglitazone HCl [Actos 15mg (*)] 15 mg PO DAILY 10/30/16 [Last Taken 11/18/16 08:00] Potassium Chloride [Klor-Con 8] 8 meq PO DAILY 10/30/16 [Last Taken 11/18/16 08: 00] Valsartan [Diovan (*)] 320 mg PO DAILY 10/30/16 [Last Taken 11/18/16 08:00] amLODIPine BESYLATE [Norvasc 5 mg (*)] 5 mg PO DAILY 10/30/16 [Last Taken 08:00] buPROPion SR [Wellbutrin 100mg SR (*)] 100 mg PO DAILY 10/30/16 [Last Taken 08:00] metFORMIN HCL [Glucophage 500 mg (*)] 1,000 mg PO BIDMEAL 10/30/16 [Last Taken 11/18/16 08:00] glipiZIDE [Glipizide Xl] 2.5 mg PO BID 11/13/16 [Last Taken 11/18/16 08:00] Cholecalciferol Vit D3 [Vitamin D3] 400 units PO DAILY 11/18/16 [Last Taken 08:00] Discharge Medications: Refer to the Discharge Home Medication list for PRN reason. - Orders Services needed: Registered Nurse, Master Scaling Machine Operator, Physical Therapy, Occupational Therapy - Follow Up Care Current Providers and Referrals: Patient,NotPresent [Unknown] - As per Instructions
--- NOTE | 2016-11-20 17:17 | GDS ---
[f rep st] DISCHARGE SUMMARY DISCHARGE DIAGNOSES: 1. Mechanical fall. 2. Indeterminate troponin. 3. Moderate to severe aortic stenosis. 4. Failure to thrive. 5. Paroxysmal atrial fibrillation. 6. Recent kidney stones. 7. Benign hypertension. 8. Hypothyroidism. 9. Controlled diabetes. CONSULTATIONS: Cardiology. HISTORY OF PRESENT ILLNESS: The patient is a 71-year-old female with a history of aortic stenosis, followed by Dr. Acosta, who was recently discharged from [facility] on 11/17 after she was admitted on the for kidney stones. On the , she underwent percutaneous nephrolithotomy. At that time , it was recommended that she go to a [facility] facility but she refused. During that stay, she had acute blood loss anemia and she was transfused 4 units of packed RBCs. Upon arriving home on the , she fell walking up the stairs to her apartment when her legs gave out. Her friend then helped her into the house since she was not able to get in on her own and sustained a 2nd fall. She denies any head trauma, loss of consciousness, palpitations, dizziness, or lightheadedness. ASSESSMENT AND PLAN: 1. Acute mechanical fall. This is likely secondary to weakness given recent hospitalization. At recent discharge, she declined SNF, and at this time she is amenable. She has been accepted to [facility]. 2. Indeterminate troponin. Suspect this is multifactorial in the setting of the fall and her underlying aortic stenosis. There was no wall motion abnormality on echocardiogram. There was no ischemia on EKG. Appreciate Cardiology consult. Could consider further evaluation with a FELIPE and left and right heart cath. At this time, she is too weak. Recommend that patient follows up with Dr. Acosta. 3. EMILIANO, improved. 4. Benign hypertension. Good blood pressure control on home medications. 5. Moderate to severe aortic stenosis: The patient is currently asymptomatic without dizziness, chest pain, or shortness of breath. Again, follow up with Dr. Acosta and continue good blood pressure control and diuretic. 6. Normocytic anemia: The patient was transfused 4 units last admission, but H and H are currently stable at 9 and 29. 7. Paroxysmal atrial fibrillation: Currently rate controlled on Coreg. Continue Eliquis. 8. Recent kidney stone: Status post percutaneous nephrolithotomy on 11/[address] Mccain. Nephrostomy tube was removed. Has a small amount of hematuria, but H and H are stable. Was evaluated by Carli Escobar with [facility] and does not think any of this is contributing to her current hospitalization. 9. Hypothyroidism. Levothyroxine. 10. Controlled diabetes. Continue glipizide and metformin. DISPOSITION: Patient is stable for discharge to rehab. FOLLOWUP: 1. Dr. Sanjay Acosta with cardiology. 2. Dr. Mccain with urology. /[id number]/MODL MTDD
[2016-11-21] MEDS ORDERED: metFORMIN HCL 500 MG TAB PO SCH (08:00)
== END 2016-11-20 17:24 | DRG 948 ==
LOC: EDUNIT# → F2W 22:35 → OBSVTOIN 11-19 15:45
PROVIDERS: ADMIT Family Medicine; ATTEND Internal Medicine
DX: R53.1 Weakness (principal); R62.7 Adult failure to thrive; R29.6 Repeated falls; E11.9 Type 2 diabetes mellitus without complications; I10 Essential (primary) hypertension; I48.0 Paroxysmal atrial fibrillation; F32.9 Major depressive disorder, single episode, unspecified; I35.0 Nonrheumatic aortic (valve) stenosis; D64.9 Anemia, unspecified; G47.30 Sleep apnea, unspecified; E03.9 Hypothyroidism, unspecified; E66.9 Obesity, unspecified; E78.5 Hyperlipidemia, unspecified; Z79.01 Long term (current) use of anticoagulants; Z87.442 Personal history of urinary calculi; Z79.84 Long term (current) use of oral hypoglycemic drugs
CPT/HCPCS: 97116-GP; 97162-GP; 97165-GO; 97535-GO; G0378; G8978-GP-CJ; G8979-GP-CI; G8987-GO-CJ; G8988-GO-CI; Q9967

== ENCOUNTER → 2016-12-17 | Outpatient (CLI) | payer OTHER | LOC: FIMAGING 14:48 | PROVIDERS: ATTEND Specialist | DX: N20.0 Calculus of kidney (principal); Z98.890 Other specified postprocedural states ==

== ENCOUNTER → 2017-02-11 | Outpatient (CLI) | payer OTHER | LOC: BHFA 14:00 | PROVIDERS: ATTEND Internal Medicine Cardiovascular Disease | DX: H34.219 Partial retinal artery occlusion, unspecified eye (principal) ==

== ENCOUNTER 2017-09-02 09:00 | Observation (INO) | payer OTHER ==
--- NOTE | 2017-09-02 09:06 | EDPHY ---
H & P Time Seen by Provider: 09/02/17 09:06 HPI/ROS: CHIEF COMPLAINT: Increasing weakness HISTORY OF PRESENT ILLNESS: The patient presents to the ED with a 1 day history of generalized weakness. The patient reportedly was unable to ambulate this morning when attempting to get out of bed. The patient typically walks with a cane. The patient denies any history of a significant fall or trauma. The patient denies any complaints of hematuria or dysuria. The patient does have a history of hospitalization in April of 2017 for a urinary tract infection and dehydration. The patient has chronic kidney disease as well as chronic aortic stenosis. She has a history of paroxysmal atrial fibrillation. She is anticoagulated with Eliquis. The patient denies any acute headache, neck pain, chest pain, shortness of breath, abdominal pain or fever. She does report increasing lower extremity edema. REVIEW OF SYSTEMS: A comprehensive 10 point review of systems is otherwise negative aside from elements mentioned in the history of present illness. Source: Patient Exam Limitations: No limitations - Medical/Surgical History Hx Asthma: No Hx Chronic Respiratory Disease: No Hx Diabetes: No Hx Cardiac Disease: No Hx Renal Disease: No Hx Cirrhosis: No Hx Alcoholism: No Hx HIV/AIDS: No Hx Splenectomy or Spleen Trauma: No Other PMH: Hyperlipidemia, Diabetes 2, kidney stone sx. - Social History Smoking Status: Former smoker - Physical Exam Exam: General Appearance: Alert, no distress Eyes: Pupils equal and round no pallor or injection ENT, Mouth: Mucous membranes moist Respiratory: There are no retractions, lungs are clear to auscultation Cardiovascular: 3/6 systolic ejection murmur Gastrointestinal: Abdomen is soft and nontender, no masses, bowel sounds normal Neurological: A&O, normal motor function, normal sensory exam, normal cranial nerves Skin: Warm and dry, no rashes Musculoskeletal: Neck is supple nontender Extremities: 3+ bilateral lower extremity edema Psychiatric: Patient is oriented X 3, there is no agitation Constitutional: Initial Vital Signs Temperature (C) 36.7 C 09/02/17 09:18 Heart Rate 79 09/02/17 09:18 Respiratory Rate 16 09/02/17 09:18 Blood Pressure 117/71 09/02/17 09:18 O2 Sat (%) 96 09/02/17 09:18 O2 Delivery Mode Room Air Allergies/Adverse Reactions: No Known Allergies Allergy (Verified 09/02/17 09:15) Home Medications: Medication Instructions Recorded ARIPiprazole [Abilify 10 mg (*)] 10 mg PO DAILY 05/02/17 Apixaban [Eliquis] 5 mg PO BID 05/02/17 Atorvastatin Calcium [Lipitor 20 20 mg PO DAILY 05/02/17 mg (*)] Carvedilol [Coreg (*)] 25 mg PO BIDMEAL 05/02/17 Chlorthalidone [Chlorthalidone 25 25 mg PO DAILY 05/02/17 mg (*)] Herbals/Supplements -Info Only 1 ea PO DAILY 05/02/17 Levothyroxine [Synthroid 125 mcg 125 mcg PO DAILY06 05/02/17 (*)] Pioglitazone HCl [Actos 15mg (*)] 15 mg PO DAILY 05/02/17 Valsartan [Diovan] 320 mg PO DAILY 05/02/17 amLODIPine BESYLATE [Norvasc 10 mg 10 mg PO DAILY 05/02/17 (*)] buPROPion SR [Wellbutrin 100mg SR 100 mg PO DAILY 05/02/17 (*)] glipiZIDE XL [Glucotrol Xl 2.5 mg 2.5 mg PO BID 05/02/17 (*)] metFORMIN HCL [Glucophage 1000 mg] 1,000 mg PO BIDMEAL 05/02/17 Potassium Chloride [Klor-Con 8 meq PO DAILY 05/03/17 Sprinkle] Medical Decision Making - Diagnostics EKG Interpretation: EKG: Complete interpretation has been separately recorded in the [email or web address] archive. Summary impression: Sinus rhythm, rate 81, left anterior fascicular block Imaging Results: Imaging Impressions Chest X-Ray 09/02/17 09:16 Impression: 1. Mild groundglass haziness at the lung bases that could represent mild dependent edema. ED Course/Re-evaluation: The patient presents to the ED with generalized weakness complicated by inability to walk. The patient did sustain a fall at home which did not result in any traumatic injury. The patient arrives to the emergency department with a normal heart rate. She has a chronic systolic ejection murmur. The patient does have evidence of a recurrent urinary tract infection and mild dehydration. I did attempt to ambulate the patient several times unsuccessfully. She is certainly a fall risk and globally weak. I do feel that she requires admission to the hospital. She is also noted to have some increasing lower extremity edema. I have ordered a cardiac echo in the setting of her known aortic stenosis. Consultation was made with the hospitalist service. She will be admitted to the hospital for treatment of her urinary tract infection, further evaluation of her weakness and aortic stenosis. She is noted to have chronic renal failure without evidence of hyperkalemia. Differential Diagnosis: Differential diagnosis considered includes arrhythmia, anemia, metabolic abnormality, urinary tract infection, worsening aortic stenosis - Data Points Laboratory Results: Laboratory Results 09/02/17 09:33 09/02/17 09:33 09/02/17 09/02/17 09/02/17 09:50 09:33 09:33 WBC 7.70 10^3/uL 10^3/uL (3.80-9.50) RBC 3.45 10^6/uL L 10^6/uL (4.18-5.33) Hgb 10.9 g/dL L g/dL (12.6-16.3) Hct 32.5 % L % (38.0-47.0) MCV 94.2 fL fL (81.5-99.8) MCH 31.6 pg pg (27.9-34.1) MCHC 33.5 g/dL g/dL (32.4-36.7) RDW 15.2 % % (11.5-15.2) Plt Count 213 10^3/uL 10^3/uL (150-400) MPV 10.7 fL fL (8.7-11.7) Neut % (Auto) 80.3 % H % (39.3-74.2) Lymph % (Auto) 13.1 % L % (15.0-45.0) Spalding % (Auto) 4.9 % % (4.5-13.0) Eos % (Auto) 0.4 % L % (0.6-7.6) Baso % (Auto) 0.8 % % (0.3-1.7) Nucleat RBC Rel Count 0.0 % % (0.0-0.2) Absolute Neuts (auto) 6.18 10^3/uL 10^3/uL (1.70-6.50) Absolute Lymphs (auto) 1.01 10^3/uL 10^3/uL (1.00-3.00) Absolute Monos (auto) 0.38 10^3/uL 10^3/uL (0.30-0.80) Absolute Eos (auto) 0.03 10^3/uL 10^3/uL (0.03-0.40) Absolute Basos (auto) 0.06 10^3/uL 10^3/uL (0.02-0.10) Absolute Nucleated RBC 0.00 10^3/uL 10^3/uL (0-0.01) Immature Gran % 0.5 % % (0.0-1.1) Immature Gran # 0.04 10^3/uL 10^3/uL (0.00-0.10) Sodium 145 mEq/L H mEq/L (134-144) Potassium 4.4 mEq/L mEq/L (3.5-5.2) Chloride 107 mEq/L mEq/L (97-110) Carbon Dioxide 23 mEq/l mEq/l (22-31) Anion Gap 15 mEq/L mEq/L (8-16) BUN 50 mg/dL H mg/dL (7-23) Creatinine 1.6 mg/dL H mg/dL (0.6-1.0) Estimated GFR 32 Glucose 157 mg/dL H mg/dL (70-100) Calcium 10.0 mg/dL mg/dL (8.5-10.4) Urine Color YELLOW Urine Appearance HAZY Urine pH 5.0 (5.0-7.5) Ur Specific Mcgrann 1.014 (1.002-1.030) Urine Protein NEGATIVE (NEGATIVE) Urine Ketones NEGATIVE (NEGATIVE) Urine Blood 3+ H (NEGATIVE) Urine Nitrate NEGATIVE (NEGATIVE) Urine Bilirubin NEGATIVE (NEGATIVE) Urine Urobilinogen NEGATIVE EU EU (0.2-1.0) Ur Leukocyte Esterase 1+ H (NEGATIVE) Urine RBC 50-182 /hpf H /hpf (0-3) Urine WBC 10-15 /hpf H /hpf (0-3) Ur Epithelial Cells TRACE /lpf /lpf (NONE-1+) Urine Mucus TRACE /lpf /lpf (NONE-1+) Urine Glucose NEGATIVE (NEGATIVE) Departure - Departure Disposition: [facility] Acute Clinical Impression: Weakness, Dehydration, CKD (chronic kidney disease), stage III, Aortic stenosis , Urinary tract infection Condition: Fair
--- NOTE | 2017-09-02 09:22 | CPEKG ---
Heart Rate: 81 RR Interval: 741 P-R Interval: 184 QRSD Interval: 110 QT Interval: 400 QTC Interval: 465 P Winslow: 33 QRS Winslow: -45 T Wave Winslow: 83 EKG Severity - ABNORMAL ECG - EKG Impression: SINUS RHYTHM EKG Impression: LEFT ANTERIOR FASCICULAR BLOCK EKG Impression: PROBABLE LVH WITH SECONDARY REPOL ABNRM Electronically Signed By: Emerson Cantu 02-Sep-2017 09:25:20
[2017-09-02 09:47] LABS: PLATELET COUNT 213 10^3/uL (150-400)
[2017-09-02] MEDS ORDERED: ONDANSETRON DISINTEGRATING 4 MG TAB PO PRN (12:15)
[2017-09-02] MEDS ORDERED: ACETAMINOPHEN 325 MG TAB PO PRN (12:15)
[2017-09-02] MEDS ORDERED: ONDANSETRON 4 MG/2 ML VIAL IVP PRN (12:15)
[2017-09-02] MEDS: APIXABAN 5 MG TAB PO SCH ×2 (13:21→21:29)
[2017-09-02] MEDS: buPROPion SR 100 MG TAB PO SCH (13:21)
[2017-09-02] MEDS: LEVOTHYROXINE 125 MCG TAB PO SCH (13:21)
--- NOTE | 2017-09-02 13:30 | GHP ---
[f rep st] HISTORY AND PHYSICAL DATE OF ADMISSION: 09/02/2017 CHIEF COMPLAINT: Increasingly weak. HISTORY OF PRESENT ILLNESS: The patient is a 72-year-old female who was recently admitted in April for ongoing weakness as well as hematuria. She describe that she was unable to sleep the last 2 nights. She typically sleeps in a recliner, but had difficulty sleeping in it because the automatic control stopped working. She was unable to get her legs elevated. She normally sleeps in a recliner because she cannot get in her bed due to the height. She lives alone. She gets help from her neighbors with shopping and doing laundry, she has a cleaning lady. She fell down this morning and was unable to get up. She had no presyncopal type symptoms. She had no chest pain, no shortness of breath or lightheadedness. She simply lost her balance. She uses a cane to ambulate and uses a walker when she is not at home. The EMS was called. They evaluated her. She was hoping that she could stay in her home, but they noted that she had swelling in her legs. She checks her weight daily, said she is up about approximately a pound. During my interview she has no chest pain, no shortness of breath. She denies any changes in her urinary symptoms. She says when she gets a urinary tract infection, she usually has hematuria associated with this. She does not have that. She denies any fever or chills. She simply overall has some ongoing weakness. PAST MEDICAL HISTORY: 1. Moderate to severe aortic stenosis with preserved LV function. 2. Moderate mitral valve stenosis. 3. Paroxysmal atrial fibrillation. 4. Diabetes type 2 on oral agent. 5. History of urinary tract infections. 6. Hypertension. 7. Depression. She feels is moderately managed. 8. Kidney stone with nephrostomy placements. 9. Sleep apnea on CPAP. 10. Hypothyroidism. 11. Coronary artery disease per CT scan. 12. Renal insufficiency. 13. Cataract surgery. 14. Anemia. 15. Had a broken leg with repair. SOCIAL HISTORY: She lives alone. She does not smoke. She does not drink alcohol. 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 She does not have children. She is currently not in a relationship. FAMILY HISTORY: Noncontributory. ALLERGIES: No known allergies. HOME MEDICATIONS: Metformin 1000 mg twice daily, glipizide 2.5 mg twice daily, Wellbutrin 100 mg daily, Norvasc 10 mg daily, Diovan 320 mg daily, Klor-Con sprinkles 8 mEq daily, Actos 15 mg daily, Synthroid 125 mcg daily, herbal supplements 1 tab daily, chlorthalidone 25 mg daily, Coreg 25 mg p.o. twice daily, Lipitor 20 mg daily, Eliquis 5 mg twice daily, Abilify 10 mg daily. REVIEW OF SYSTEMS: A 10-point review of system was performed and was negative other than pertinent positives in the HPI and past medical history. PHYSICAL EXAM: GENERAL: The patient is a 72-year-old female who does not appear to be in any distress and appears to be her stated years. VITAL SIGNS: Blood pressure is 128/87, heart rate is 85, respiratory rate is 16, O2 sats on room air 92%, temperature is 36.8 Celsius. EYES: Pupils are equal and reactive. EOMs are intact. No conjunctival injection noted. ENT: Normal ears. Hearing intact. Normal lips, teeth. Oral airway is moist. Trachea is midline. CARDIOVASCULAR: She is in a regular rate and rhythm. She has a little loud holosystolic murmur noted on the left and right sternal borders. She has 2+ pedal pulses. She has 3+ edema in her bilateral lower extremity. CHEST/LUNGS: Normal respiratory effort. Clear without wheezing, rales, rhonchi. ABDOMEN: Soft, nontender. SKIN: Without rashes, ulcer, warm, dry and intact. She is very pale. MUSCULOSKELETAL: Not evaluated. She has equal upper and lower extremity strength. PSYCHIATRIC: She is alert and oriented, normal mood and affect. Normal judgment and insight. Normal memory, but has a very flat affect. DATA: Reviewed. 1. CBC shows a white blood cell count of 7.7, hemoglobin 10.9, hematocrit of 32.5, platelet count of 213. Chemistry: Sodium is 145, potassium 4.4, BUN of 50, creatinine of 1.6, glucose of 157. Urinalysis shows 3+ blood in her urine with 1+ leukocyte esterase, 50-182 red blood cells, 10-15 white blood cells. 2. ECG was performed, which showed a sinus rhythm with a left anterior fascicular block. 3. Chest x-ray shows a mild ground-glass haziness left base that could represent mild dependent edema. 4. I reviewed her care with Dr. Emerson Cantu, emergency room physician. ASSESSMENT/PLAN: 1. Failure to thrive with weakness and falls. She has been here in the past for this. Will ask for physical therapy and occupational therapy. She may need a higher level care or more support at home. 2. Moderate to severe aortic stenosis with significant lower extremity edema. An echocardiogram has been ordered for further evaluation of her valvular heart disease. Will hold Norvasc. This may be contributing to her swelling. 3. Diabetes type 2. Have resumed most of her oral agents. She prefers no diabetic diet. 4. Hematuria. She has a long history of this. 5. Hypertension. Resumed her home medications. 6. Renal insufficiency. Her baseline creatinine is close to 1.3-1.5. It is elevated today. Will hold her diuretic and her ARB and re-evaluate in the morning. 7. Depression. Resumed her home medications. She has a plan to see a therapist in the outpatient setting. 8. Code status. Full. 9. Length of stay. She will require less than a 2-midnight stay. Will make her observation status. This can be further evaluated if needed. 10. DVT prophylaxis. This can be initiated if she stays. For now, will order athrombic pumps. /[id number]/MODL MTDD
[2017-09-02] MEDS: ARIPiprazole 10 MG TAB PO SCH (13:31)
--- NOTE | 2017-09-02 13:51 | ECHO ---
[email or web address] [address] [address] Main: [phone] Fax: Transthoracic Echocardiogram Name: KAROLYN SOSA MR#: [id number] Study Date: 09/02/2017 Study Time: 10:54 AM Date of : 1945 Age: 72 year(s) Height: 162.6 cm (64 in.) Weight: 77.57 kg (171 lb.) BSA: 1.83 m2 Gender: Female Examination: Echo Indication: presyncope; h/o , incr lower extremity edema Image Quality: Adequate Contrast: Requested by: Emerson Cantu BP: 146 mmHg/72 mmHg Heart Rate: Rhythm: Indication: presyncope; h/o , incr lower extremity edema Procedure Staff Business Process Coordinator: Elaine Pendleton Reading Physician: Van Zhang Requesting Provider: Conclusions: Normal size left ventricle. Moderate to Severe concentric LV hypertrophy. Normal global systolic LV function. EF is 74 %. Normal size right ventricle. The left atrium is mildly to moderately dilated. There is mild thickening of the mitral valve leaflets. Moderate-severe mitral annular calcification. Trivial mitral valve regurgitation. Mean mitral valve gradient 13mmHg. Severe mitral valve stenosis is present. The aortic valve is tri-leaflet. Severe aortic valve calcification is present. Mild aortic valve regurgitation is present. Mean aortic valve gradient 43. Severe calcific aortic valve stenosis. NDSI=.33. Estimated CHARLINE=.9cm2. Mild tricuspid regurgitation is present. Right ventricular systolic pressure measures 45mmHg. Pulmonary valve not well visualized. Normal size ascending aorta measuring 3.1 cm. Small pericardial effusion. Measurements: Chambers Valvular Assessment AV/MV Valvular Assessment TV/PV Normal Normal Normal Name Value Range Name Value Range Name Value Range TR Vmax: 3.16 mm/s ( - ) Patient: KAROLYN SOSA Study Date: 09/02/2017 Page 1 of 2 10:54 AM IVSd (2D): 1.7 cm (0.6 cm-1.1 AV Vmax: 4.05 m/s (1 m/s-1.7 TR PGmax: 40 mmHg ( - ) cm) m/s) syst. PAP: 45 mmHg ( - ) LVDd (2D): 4.3 cm (3.9 cm-5.3 AV maxP mmHg ( - ) PV Vmax: 1.29 m/s (0.6 m/s-0.9 cm) AV meanP mmHg ( - ) m/s) LVDs (2D): 2.2 cm (2.1 cm-4 CHARLINE (VTI): 0.9 cm ( - ) PV PGmax: 7 mmHg ( - ) cm) MV meanP mmHg ( - ) LVPWd (2D): 1.5 cm ( - ) MV PHT: 0.115 s ( - ) LVOTd 1.9 cm 1.9 cm mm MVA (Vmax): 1.2 m/s ( - ) LVEF (MOD4): 74 % (>=55 %) MVA (PHT): 1.9 s ( - ) RVDd(2D): 2.5 cm (1.9 cm-3.8 cmmm) Continued Measurements: Chambers Valvular Assessment AV/MV Valvular Assessment TV/PV Name Value Name Value Name Value LADs Lon.8 cm MV VTI: 68.00 cm CVP (est.): 5 mmHg LA Area: 23.2 cm2 Additional Vessels Name Value Ao Ascendin.1 cm Findings: Left Ventricle: Normal size left ventricle. Moderate to Severe concentric LV hypertrophy. Normal global systolic LV function. EF is 74 %. No regional wall motion abnormality. Right Ventricle: Normal size right ventricle. Normal RV function. Left Atrium: The left atrium is mildly to moderately dilated. Right Atrium: The right atrium is normal in size. Mitral Valve: There is mild thickening of the mitral valve leaflets. Moderate-severe mitral annular calcification. Trivial mitral valve regurgitation.Mean mitral valve gradient 13mmHg. Severe mitral valve stenosis is present. Aortic Valve: The aortic valve is tri-leaflet. Severe aortic valve calcification is present. Mild aortic valve regurgitation is present. Mean aortic valve gradient 43. Severe calcific aortic valve stenosis. NDSI=.33. Estimated CHARLINE=.9cm2. Tricuspid Valve: The tricuspid valve appears normal. Mild tricuspid regurgitation is present. Right ventricular systolic pressure measures 45mmHg. The pulmonary artery pressure is moderately increased. Pulmonic Valve: Pulmonary valve not well visualized. Aorta: Normal size ascending aorta measuring 3.1 cm. Pericardium: Small pericardial effusion. (No Signature Object) Patient: KAROLYN SOSA Study Date: 09/02/2017 Page 2 of 2 10:54 AM [id number]
[2017-09-02] MEDS: CARVEDILOL 25 MG TAB PO SCH (17:38)
[2017-09-03] MEDS: LEVOTHYROXINE 125 MCG TAB PO SCH (05:19)
[2017-09-03 08:52] VITALS: RESP 12
[2017-09-03] MEDS ORDERED: Herbals/Supplements -Info Only PO SCH (09:00)
[2017-09-03] MEDS ORDERED: ATORVASTATIN CALCIUM 20 MG TAB PO SCH (09:00)
[2017-09-03] MEDS ORDERED: PIOGLITAZONE HCL 15 MG TAB PO SCH (09:00)
[2017-09-03] MEDS: CARVEDILOL 25 MG TAB PO SCH (09:15)
[2017-09-03] MEDS: ARIPiprazole 10 MG TAB PO SCH (09:16)
[2017-09-03] MEDS: APIXABAN 5 MG TAB PO SCH (09:17)
[2017-09-03] MEDS: buPROPion SR 100 MG TAB PO SCH (09:17)
[2017-09-03 13:57] VITALS: BP 114/58; PULSE 72; TEMP 97.8; O2SAT 97
--- NOTE | 2017-09-03 15:09 | ASMTCMCOM ---
CM Note CM Note Notes: Pt. is a 72-year-old woman admitted for weakness. Pt. fell and could not get up. Pt. has a history of admission in April 2017 to [facility] for weakness as well. At that time, d/c'ed to [facility]. Pt. w/ multiple comobidities. Per H&P, neighbors assist with shopping and laundry. Pt. has a shallot cleaner for her home. 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 Pt. uses a cane at home. H&P states Pt. has a flat affect. OT and PT both recommending home d/c this admission. d/cing Pt. independently today. Date Signed: 09/03/2017 03:08 PM Electronically Signed By:Gloria Scott LCSW
--- NOTE | 2017-09-03 15:15 | HOSPPROG ---
Hospitalist Progress Note Assessment/Plan: 72 yo f w here w weakness echo w worsening offered further eval here but wishes for dc i have communicated with her outpt financial institution manager home today Subjective: wishes for dc today. cleared for home by pt/ot Objective: Vital Signs Temp Pulse Resp BP Pulse Ox 36.6 C 72 12 114/58 L 97 09/03/17 13:56 09/03/17 13:56 09/03/17 08:00 09/03/17 13:56 09/03/17 13:56 Laboratory Results 09/03/17 05:16 - Physical Exam Constitutional: no apparent distress, appears nourished Eyes: PERRL, anicteric sclera Ears, Nose, Mouth, Throat: moist mucous membranes, hearing normal Cardiovascular: regular rate and rhythym, no murmur, rub, or gallop, edema Respiratory: no respiratory distress, no rales or rhonchi Gastrointestinal: normoactive bowel sounds, soft, non-tender abdomen Genitourinary: no bladder fullness, No waterman in urethra Skin: warm, normal color Musculoskeletal: full muscle strength, no muscle tenderness Neurologic: AAOx3 Psychiatric: interacting appropriately ICD10 Worksheet Patient Problems: Problems Problem Status Onset Aortic stenosis Acute CKD (chronic kidney disease), stage III Acute Dehydration Acute Urinary tract infection Acute Weakness Acute Elevated troponin Acute Staghorn renal calculus Acute Weakness Acute
--- NOTE | 2017-09-03 16:51 | ASDISCHSUM ---
Discharge Information Plan Status:Home with No Needs Medically Cleared to Leave: Discharge Date:09/03/2017 04:01 PM CM D/C Disposition:Home, Routine, Self-Care ADT D/C Disposition:Home, Routine, Self-Care Projected Discharge Date:09/03/2017 04:01 PM Transportation at D/C: Discharge Delay Reason: Follow-Up Date:09/03/2017 04:01 PM Discharge Slot: Final Diagnosis: Placement Information Patient Contact Information Contact Name:CASA Relationship:Sammy Address: City: [facility] Phone: [facility] Code: Email: Financial Information Financial Class: Primary Plan Desc:MEDICARE OUTPATIENT Primary Plan Number:[id number] Secondary Plan Desc:[employer] Secondary Plan Number:[id number] Assessment Information [facility] CM Progress Note CM Note CM Note Notes: Pt. is a 72-year-old woman admitted for weakness. Pt. fell and could not get up. Pt. has a history of admission in April 2017 to [facility] for weakness as well. At that time, d/c[facility]ed to [facility]. Pt. w/ multiple comobidities. Per H&P, neighbors assist with shopping and laundry. Pt. has a vat cleaner for her home. 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 Pt. uses a cane at home. H&P states Pt. has a flat affect. OT and PT both recommending home d/c this admission. d/ej Pt. independently today. Date Signed: 09/03/2017 03:08 PM Electronically Signed By:Gloria Scott LCSW Case Management Discharge Plan Note Case Management Discharge Discharge Order Complete? Answers: Yes Patient to Obtain Answers: Independently Medications Discharge Comments Notes: Pt. d/ej independently today per MD. Date Signed: 09/03/2017 03:11 PM Electronically Signed By:Gloria Scott LCSW Intervention Information Intervention Type:*SHO-Signed Date of Service:09/03/2017 10:05 AM Patient Type:Observation Staff Member:Verna Michael Hours: Discipline: Severity: Comment:
--- NOTE | 2017-09-04 05:22 | GDS ---
[f rep st] DISCHARGE SUMMARY DISCHARGE DIAGNOSES: 1. Aortic stenosis, now severe. 2. Mitral stenosis, now severe. 3. Paroxysmal atrial fibrillation. 4. Type 2 diabetes. 5. Generalized weakness. 6. History of urinary tract infection. 7. Depression. 8. Kidney stone with a history of nephrostomy. 9. Sleep apnea, on CPAP. 10. Acute on chronic valvular heart failure. HOSPITAL COURSE: Please see admission history and physical by Dr. Mariam Le. The patient pres ented with generalized weakness. She received an echocardiogram, which appeared to show progression of her aortic stenosis and mitral stenosis. The patient had lower extremity edema, as well. On echo cardiogram, her left ventricular function was noted to be intact, but she did have progression of her valvular lesions. This is probably an indication for surgery. She was offered inpatient evaluation of this, as well as diuresis, which she declined. She was anxious to get home. Her in store banker is her Dr. Acosta, to whom I reached out with via telephone call. Given her modest lower extremity edema, I gave her 5 days of oral Lasix with outpatient followup. Copy requested to: Dr. Acosta Cardiology /[id number]/MODL
== END 2017-09-03 16:01 | disposition home or self-care (01) ==
LOC: EDUNIT# → F3E 12:47
PROVIDERS: ADMIT Internal Medicine; ATTEND Internal Medicine
DX: I35.0 Nonrheumatic aortic (valve) stenosis (principal); I34.2 Nonrheumatic mitral (valve) stenosis; I48.0 Paroxysmal atrial fibrillation; E11.9 Type 2 diabetes mellitus without complications; R53.1 Weakness; F32.9 Major depressive disorder, single episode, unspecified; N20.0 Calculus of kidney; G47.33 Obstructive sleep apnea (adult) (pediatric); I50.9 Heart failure, unspecified
CPT/HCPCS: 71046; 93005; 93306; 97161; 97165; 99285; G0378; G8978; G8979; G8987; G8988; G8989

== ENCOUNTER 2017-10-06 08:07 | Day surgery (SDC) | payer OTHER ==
[2017-10-06] MEDS ORDERED: FAMOTIDINE 20 MG TAB PO ONE (08:15)
[2017-10-06] MEDS ORDERED: DIAZEPAM 5 MG TAB PO ONE (08:15)
[2017-10-06] MEDS ORDERED: diphenhydrAMINE 25 MG CAP PO ONE ×2 (08:15→08:43)
[2017-10-06] MEDS ORDERED: ASPIRIN EC 325 MG TAB PO ONE ×2 (08:15→08:43)
[2017-10-06] MEDS ORDERED: NS 1,000 ML IV ONE (08:15)
--- NOTE | 2017-10-06 08:36 | CPEKG ---
Heart Rate: 41 RR Interval: 1463 P-R Interval: 304 QRSD Interval: 106 QT Interval: 524 QTC Interval: 433 P [place]: 14 QRS [place]: -40 T Wave [place]: 1 EKG Severity - ABNORMAL ECG - EKG Impression: MULTIPLE ATRIAL PREMATURE COMPLEXES EKG Impression: BORDERLINE IVCD WITH LAD EKG Impression: BORDERLINE T ABNORMALITIES, INFERIOR LEADS EKG Impression: MOBITZ I AV BLOCK ([place]ACH) Electronically Signed By: David Jackson 06-Oct-2017 10:51:54
[2017-10-06] MEDS ORDERED: LIDOCAINE 1% 300 MG/30 ML SDV ONE (08:37)
[2017-10-06] MEDS ORDERED: fentaNYL 100 MCG/2 ML INJ ONE (08:37)
[2017-10-06] MEDS ORDERED: IOPAMIDOL (ISOVUE-370) 150 ML BTL IV ONE (08:38)
[2017-10-06] MEDS ORDERED: MIDAZOLAM 2 MG/2 ML VIAL ONE (08:38)
[2017-10-06] MEDS ORDERED: FAMOTIDINE 20 MG TAB ONE (08:43)
[2017-10-06 08:56] LABS: PLATELET COUNT 204 10^3/uL (150-400)
[2017-10-06 09:05] LABS: INR 1.24 (0.83-1.16); PROTIME(PATIENT) 15.8 SEC (12.0-15.0)
--- NOTE | 2017-10-06 09:30 | PDPROPOC ---
Sedation Plan of Care Sedation Plan of Care: mental status noted, patient educated of risks, benefits , alternatives, patient can tolerate sedation ASA Classification: ASA 2 Planned drugs: fentanyl, midazolam Mallampati Score: Class 2 Mallampati Reference Image: Patient passed 3-3-2 rule?: Yes
--- NOTE | 2017-10-06 09:30 | PDHPUP ---
History & Physical Update H&P update statement: This history and physical update is based on an assessment of the patient which was completed after admission or registration (within 24 hours), but prior to the surgery/procedure. H&P update: H&P reviewed & patient examined, no change in patient's condition since H&P completed
[2017-10-06] MEDS ORDERED: NITROGLYCERIN 0.4 MG BTL SL PRN (11:00)
[2017-10-06] MEDS ORDERED: OXYCODONE/APAP 5/325 TAB PO PRN (11:00)
[2017-10-06] MEDS ORDERED: ATROPINE SULFATE 1 MG/10 ML SYR IVP PRN (11:00)
[2017-10-06] MEDS ORDERED: HYDROCODONE/APAP 5/325 TAB PO PRN (11:00)
[2017-10-06] MEDS ORDERED: ONDANSETRON 4 MG/2 ML VIAL IVP PRN (11:00)
--- NOTE | 2017-10-06 12:38 | CPIP ---
[f rep st] INVASIVE CARDIAC PROCEDURE DATE OF PROCEDURE: 10/06/2017 INDICATIONS FOR PROCEDURE: Critical aortic stenosis. PROCEDURE: 1. Nonselective left groin sheathogram. 2. A 7-[place] sheath in left common femoral vein. 3. Right heart catheterization, [place]-Linda catheter. 4. Bilateral selective coronary angiography. 5. Abdominal aortogram. HISTORY: Briefly, this is a 72-year-old female, who is extremely frail, having worsening shortness o f breath as an outpatient. Was found to have critical aortic stenosis by a recent echocardiogram. T he patient saw Dr. Mj Mcpherson from CT surgery and deemed to be a high-risk candidate for open AVR. The patient was then consented for right and left heart cath in anticipation for eventual TAVR. DESCRIPTION OF PROCEDURE: After informed consent, the patient was brought to [facility], where the left elena in was prepped and draped in sterile fashion. Using lidocaine, a short 6-[place] sheath into the left common femoral vein, a 6-[place]aw[place] sheath in the left common femoral artery, and a 7-[place]aw[place] sheath in t he left vein. Through the common femoral vein, a [place]-Linda catheter was advanced. Wedge pressure was a mean of 19, A-wave 22/24. PA pressure was 41/19 with a mean of 26. RV pressure was 4 3 systolic with a diastolic of 8 with an end of 11. RA pressure was a mean of 11 with A-wave of 13 a nd a V-wave 15. Cardiac output was 2.8 by Zak with a cardiac index of 1.5. [place]-Linda catheter was then removed. A JL4 catheter was then advanced to the left coronary artery. Images of the left marcela nary artery revealed normal short left main. The left circumflex artery had 20% to 30% disease in it . There was a marginal artery coming off the mid body of the circumflex which was healthy and free o f disease, a marginal artery coming off distally which had 30% to 40% diffuse plaque disease. The LA D was a long vessel, which wrapped around the apex. The LAD had a calcified area in its mid body wit h stenosis ranging up to 40%. There were small diagonal arteries coming off the LAD which had no sig nificant disease. Distal LAD was healthy and free of disease. After the images were obtained, the J L4 catheter was removed. A JR4 catheter was advanced to the right coronary artery. Images of the ri t coronary artery revealed normal ostial RCA, 20% to 30% proximal disease. There was a focal area of 50% disease in the mid RCA. Distal RPD and RPL appeared to be healthy and free of disease. After the images were obtained, the JR4 catheter was removed. A pigtail catheter was advanced to the desc ending aorta, and abdominal aortogram showed patent distal descending aorta, patent bilateral common, external, and internal iliac arteries with no significant disease bilaterally. After the images wer e obtained, the pigtail catheter was removed over a 0.035 wire. The left groin was closed with manua l pressure. Patient tolerated the procedure well with no complications. IMPRESSION: 1. Moderate noncritical bilateral coronary artery disease. 2. Normal pulmonic pressures. PLAN: The patient's creatinine is 1.8 currently. Thus, obtaining a CTA would most likely be prohibi tive. We will obtain carotid ultrasounds today and schedule her CTA of the chest, abdomen and pelvis as an outpatient. /[id number]/MODL
--- NOTE | 2017-10-06 14:50 | CPEKG ---
Heart Rate: 43 RR Interval: 1395 P-R Interval: 338 QRSD Interval: 104 QT Interval: 516 QTC Interval: 437 P [place]: 22 QRS [place]: -39 T Wave [place]: 62 EKG Severity - ABNORMAL ECG - EKG Impression: LEFT AXIS DEVIATION EKG Impression: NONSPECIFIC T ABNORMALITIES, LATERAL LEADS EKG Impression: [place] I second degree AV block Electronically Signed By: David Jackson 07-Oct-2017 11:57:10
[2017-10-06] MEDS ORDERED: metFORMIN HCL 500 MG TAB PO SCH (18:00)
[2017-10-06] MEDS ORDERED: NON-FORMULARY NEW DRUG (Metformin Hcl [Glucophage 1000 Mg] 1,000 MG) PO SCH (18:00)
[2017-10-06] MEDS ORDERED: MELATONIN 3 MG TAB PO SCH (21:00)
[2017-10-06] MEDS ORDERED: APIXABAN 5 MG TAB PO SCH (21:00)
[2017-10-06] MEDS ORDERED: OMEGA-3 FATTY ACIDS 1,000 MG CAP PO SCH (21:00)
[2017-10-07] MEDS ORDERED: LEVOTHYROXINE 125 MCG TAB PO SCH (06:00)
[2017-10-07] MEDS ORDERED: VALSARTAN 160 MG TAB PO SCH (09:00)
[2017-10-07] MEDS ORDERED: ARIPiprazole 10 MG TAB PO SCH (09:00)
[2017-10-07] MEDS ORDERED: NON-FORMULARY NEW DRUG (Valsartan [Diovan] 320 MG) PO SCH (09:00)
[2017-10-07] MEDS ORDERED: Herbals/Supplements -Info Only PO SCH (09:00)
[2017-10-07] MEDS ORDERED: PIOGLITAZONE HCL 15 MG TAB PO SCH (09:00)
[2017-10-07] MEDS ORDERED: buPROPion SR 100 MG TAB PO SCH (09:00)
[2017-10-07] MEDS ORDERED: ATORVASTATIN CALCIUM 20 MG TAB PO SCH (09:00)
== END 2017-10-06 15:28 | disposition home or self-care (01) ==
LOC: FCATH 08:07
PROVIDERS: ATTEND Internal Medicine Cardiovascular Disease
PROC: 4A023N6 Measurement of Cardiac Sampling and Pressure, Right Heart, Percutaneous Approach (ICD-10-PCS; principal; 2017-10-06)
PROC: B2111ZZ Fluoroscopy of Multiple Coronary Arteries using Low Osmolar Contrast (ICD-10-PCS; principal; 2017-10-06)
PROC: B4101ZZ Fluoroscopy of Abdominal Aorta using Low Osmolar Contrast (ICD-10-PCS; principal; 2017-10-06)
DX: I35.0 Nonrheumatic aortic (valve) stenosis (principal); R06.00 Dyspnea, unspecified; I25.10 Atherosclerotic heart disease of native coronary artery without angina pectoris
CPT/HCPCS: J1644; J2250; J3010; Q9967

== ENCOUNTER 2017-10-09 20:27 | Inpatient (IN) | payer OTHER ==
--- NOTE | 2017-10-09 20:35 | EDPHY ---
H & P Time Seen by Provider: 10/09/17 20:27 HPI/ROS: CHIEF COMPLAINT: Fever and weakness HISTORY OF PRESENT ILLNESS: Currently on Macrobid for recently diagnosed UTI. Today at temperature to 102 and much weaker could not get out of her chair called EMS. Generalized weakness legs worse than arms. Not associated with trouble with speech or thought or vision. Fever not associated with cough or sore throat or vomiting or diarrhea. REVIEW OF SYSTEMS: Eye: no change in vision ENT: no sore throat Cardiac: no chest pain or syncope Pulmonary: no cough or SOB Abdomen: no vomiting, diarrhea, abdominal pain Musculoskeletal: no back pain Skin: no rash Neuro: no headache Constitutional: HPI : Recent UTI A comprehensive 10 point review of systems is otherwise negative aside from elements mentioned in the history of present illness. PAST MEDICAL HISTORY: Includes diabetes, kidney stone, AFib on Eliquis. She says she wears oxygen at night but does not know why or what type of lung disease she has. Social history: Lives independently General Appearance: Alert and conversant, cooperative. Eyes: No scleral icterus. ENT, Mouth: Normal mucous membranes. Respiratory: Normal respiratory effort, breath sounds equal, lungs are clear to auscultation. Cardiovascular: Regular rate and rhythm. Gastrointestinal: Abdomen is soft and non tender. Neurological: Alert and face symmetric. 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 Can move both feet can't really lift each leg off the bed. Definitely generally very weak. Normal speech. Skin: Slight erythema under each breast but not cellulitis. Not warmer painful to the touch. Musculoskeletal: No peripheral edema. No meningeal signs, normal range of motion of the neck. Psychiatric: Not agitated. Emergency Department course/MDM: Lactate screening, cath urine, labs to include CBC chemistry. Chest x-ray, although her legs are weaker than her arms to does appear to have global weakness with a fever and I think that meningitis or stroke or both unlikely. Urinalysis shows pyuria and hematuria. Bacteria present. Ceftriaxone 1 g IV and urine culture sent. 2126: Lactate 2.0, has SIRS criteria but does not have severe sepsis or septic shock. Ceftriaxone 1 g IV and fluid bolus. Influenza negative. Not hypotensive after fluid bolus. Smoking Status: Former smoker Constitutional: Initial Vital Signs Temperature (C) 38.1 C 10/09/17 20:30 Heart Rate 116 H 10/09/17 20:30 Respiratory Rate 18 02/15/18 20:30 Blood Pressure 127/75 H 10/09/17 20:30 O2 Sat (%) 88 L 10/09/17 20:30 O2 Delivery Mode Nasal Cannula O2 (L/minute) 2 Allergies/Adverse Reactions: No Known Allergies Allergy (Verified 09/02/17 09:15) Home Medications: Medication Instructions Recorded ARIPiprazole [Abilify 10 mg (*)] 10 mg PO DAILY 05/02/17 Apixaban [Eliquis] 5 mg PO BID 05/02/17 Atorvastatin Calcium [Lipitor 20 20 mg PO DAILY 05/02/17 mg (*)] Herbals/Supplements -Info Only 1 ea PO DAILY 05/02/17 Levothyroxine [Synthroid 125 mcg 125 mcg PO DAILY06 05/02/17 (*)] Pioglitazone HCl [Actos 15mg (*)] 15 mg PO DAILY 05/02/17 Valsartan [Diovan] 320 mg PO DAILY 05/02/17 buPROPion SR [Wellbutrin 100mg SR 100 mg PO DAILY 05/02/17 (*)] glipiZIDE XL [Glucotrol Xl 2.5 mg 2.5 mg PO DAILY 05/02/17 (*)] metFORMIN HCL [Glucophage 1000 mg] 1,000 mg PO BIDMEAL 05/02/17 Melatonin [Melatonin 3 MG (*)] 3 mg PO HS 09/29/17 [place]-3 Fatty Acids [Fish Oil 1000 1,000 mg PO BID 09/29/17 mg (*)] Nitrofurantoin Monohyd/M-Cryst 100 mg PO BID 10/09/17 [Macrobid 100 mg Capsule] amLODIPine BESYLATE [Norvasc 10 mg 10 mg PO DAILY 10/09/17 (*)] Medical Decision Making - Diagnostics EKG Interpretation: 12-lead EKG interpreted by me; official reading is in trace master. My interpretation is sinus tachycardia with PVC and left anterior fascicular block , probable LVH. Imaging Results: Imaging Impressions Chest X-Ray 10/09/17 20:48 Impression: Early CHF. No evidence for pneumonia. Chest x-ray negative for source for fever. Imaging: I viewed and interpreted images myself Differential Diagnosis: Differential for fever and weakness considered including but not limited to sepsis, influenza, UTI or pyelonephritis, pneumonia. Consult/Admit Bed Type: Prieto [place]bour - Data Points Laboratory Results: Laboratory Results 10/09/17 20:27 10/09/17 20:27 10/09/17 10/09/17 10/09/17 21:24 21:24 20:27 WBC RBC Hgb Hct MCV MCH MCHC RDW Plt Count MPV Neut % (Auto) Lymph % (Auto) Pender % (Auto) Eos % (Auto) Baso % (Auto) Nucleat RBC Rel Count Absolute Neuts (auto) Absolute Lymphs (auto) Absolute Monos (auto) Absolute Eos (auto) Absolute Basos (auto) Absolute Nucleated RBC Immature Gran % Immature Gran # PT INR APTT VBG Lactic Acid 2.0 mmol/L mmol/L (0.7-2.1) Sodium Potassium Chloride Carbon Dioxide Anion Gap BUN Creatinine Estimated GFR Glucose Calcium Total Bilirubin Urine Color YELLOW Urine Appearance HAZY Urine pH 5.0 (5.0-7.5) Ur Specific [place] 1.013 (1.002-1.030) Urine Protein NEGATIVE (NEGATIVE) Urine Ketones NEGATIVE (NEGATIVE) Urine Blood 2+ H (NEGATIVE) Urine Nitrate NEGATIVE (NEGATIVE) Urine Bilirubin NEGATIVE (NEGATIVE) Urine Urobilinogen NEGATIVE EU EU (0.2-1.0) Ur Leukocyte Esterase 2+ H (NEGATIVE) Urine RBC 15-25 /hpf H /hpf (0-3) Urine WBC 15-25 /hpf H /hpf (0-3) Ur Epithelial Cells TRACE /lpf /lpf (NONE-1+) Urine Mucus TRACE /lpf /lpf (NONE-1+) Urine Glucose NEGATIVE (NEGATIVE) Nasal Influenza A PCR NEGATIVE FOR FLU A (NEGATIVE) Nasal Influenza B PCR NEGATIVE FOR FLU B (NEGATIVE) 10/09/17 10/09/17 10/09/17 20:27 20:27 20:27 WBC 12.09 10^3/uL H 10^3/uL (3.80-9.50) RBC 3.38 10^6/uL L 10^6/uL (4.18-5.33) Hgb 10.4 g/dL L g/dL (12.6-16.3) Hct 31.6 % L % (38.0-47.0) MCV 93.5 fL fL (81.5-99.8) MCH 30.8 pg pg (27.9-34.1) MCHC 32.9 g/dL g/dL (32.4-36.7) RDW 15.6 % H % (11.5-15.2) Plt Count 309 10^3/uL 10^3/uL (150-400) MPV 10.8 fL fL (8.7-11.7) Neut % (Auto) 91.5 % H % (39.3-74.2) Lymph % (Auto) 4.0 % L % (15.0-45.0) Pender % (Auto) 2.6 % L % (4.5-13.0) Eos % (Auto) 0.7 % % (0.6-7.6) Baso % (Auto) 0.5 % % (0.3-1.7) Nucleat RBC Rel Count 0.0 % % (0.0-0.2) Absolute Neuts (auto) 11.06 10^3/uL H 10^3/uL (1.70-6.50) Absolute Lymphs (auto) 0.48 10^3/uL L 10^3/uL (1.00-3.00) Absolute Monos (auto) 0.32 10^3/uL 10^3/uL (0.30-0.80) Absolute Eos (auto) 0.09 10^3/uL 10^3/uL (0.03-0.40) Absolute Basos (auto) 0.06 10^3/uL 10^3/uL (0.02-0.10) Absolute Nucleated RBC 0.00 10^3/uL 10^3/uL (0-0.01) Immature Gran % 0.7 % % (0.0-1.1) Immature Gran # 0.08 10^3/uL 10^3/uL (0.00-0.10) PT 16.6 SEC H SEC (12.0-15.0) INR 1.32 H (0.83-1.16) APTT 30.8 SEC SEC (23.0-38.0) VBG Lactic Acid Sodium 140 mEq/L mEq/L (135-145) Potassium 4.5 mEq/L mEq/L (3.5-5.2) Chloride 105 mEq/L mEq/L (97-110) Carbon Dioxide 19 mEq/l L mEq/l (22-31) Anion Gap 16 mEq/L mEq/L (8-16) BUN 35 mg/dL H mg/dL (7-23) Creatinine 1.2 mg/dL H mg/dL (0.6-1.0) Estimated GFR 44 Glucose 218 mg/dL H mg/dL (70-100) Calcium 8.9 mg/dL mg/dL (8.5-10.4) Total Bilirubin 0.3 mg/dL mg/dL (0.1-1.4) Urine Color Urine Appearance Urine pH Ur Specific [place] Urine Protein Urine Ketones Urine Blood Urine Nitrate Urine Bilirubin Urine Urobilinogen Ur Leukocyte Esterase Urine RBC Urine WBC Ur Epithelial Cells Urine Mucus Urine Glucose Nasal Influenza A PCR Nasal Influenza B PCR Medications Given: Discontinued Medications Ceftriaxone Sodium/Dextrose (Rocephin 1 Gm (Premix)) 50 mls @ 100 mls/hr IV EDNOW ONE PRN Reason: Protocol Stop: 10/09/17 22:06 Last Admin: 10/09/17 21:59 Dose: 50 mls Sodium Chloride (Ns) 2,300 mls @ 4,600 mls/hr 30 ml/kg infuse over 30 min ( 2300 ml) IV EDNOW ONE PRN Reason: Protocol Stop: 10/09/17 22:06 Last Admin: 10/09/17 21:59 Dose: 2,300 mls Departure - Departure Disposition: [facility] Inpatient Acute Clinical Impression: Pyelonephritis Condition: Fair
--- NOTE | 2017-10-09 20:52 | CPEKG ---
Heart Rate: 109 RR Interval: 550 P-R Interval: 138 QRSD Interval: 104 QT Interval: 336 QTC Interval: 453 P [place]: 0 QRS [place]: -43 T Wave [place]: 89 EKG Severity - ABNORMAL ECG - EKG Impression: SINUS TACHYCARDIA EKG Impression: VENTRICULAR PREMATURE COMPLEX EKG Impression: LEFT ANTERIOR FASCICULAR BLOCK EKG Impression: PROBABLE LVH WITH SECONDARY REPOL ABNRM Electronically Signed By: Rupert Torres 09-Oct-2017 21:12:57
[2017-10-09 21:00] LABS: PLATELET COUNT 309 10^3/uL (150-400)
[2017-10-09 21:09] LABS: INR 1.32 (0.83-1.16); PROTIME(PATIENT) 16.6 SEC (12.0-15.0)
[2017-10-09] MEDS ORDERED: NS 2,300 ML IV ONE (21:37)
[2017-10-09] MEDS ORDERED: HYDROCODONE/APAP 5/325 TAB PO PRN (23:02)
[2017-10-09] MEDS ORDERED: ACETAMINOPHEN 325 MG TAB PO PRN (23:02)
[2017-10-09] MEDS ORDERED: ONDANSETRON 4 MG/2 ML VIAL IVP PRN (23:02)
[2017-10-09] MEDS ORDERED: HYDROmorphONE/DILAUDID 1 MG/ML INJ IVP PRN (23:02)
[2017-10-09] MEDS ORDERED: NS 1,000 ML IV SCH (23:15)
[2017-10-10] MEDS: APIXABAN 5 MG TAB PO SCH ×3 (02:22→21:44)
[2017-10-10 04:18] LABS: PLATELET COUNT 228 10^3/uL (150-400)
[2017-10-10] MEDS: LEVOTHYROXINE 125 MCG TAB PO SCH (05:28)
--- NOTE | 2017-10-10 06:32 | GHP ---
[f rep st] HISTORY AND PHYSICAL DATE OF ADMISSION: 10/09/2017 SOURCE: The patient provides history, is a fair historian. Her EMR was reviewed from recent [facility] stay. CHIEF COMPLAINT: Fever and weakness. HISTORY OF PRESENT ILLNESS: This is a very pleasant 72-year-old female with multiple medical issues including recurrent UTI with a remote history of staghorn renal calculus status post removal, history of critical aortic stenosis, severe MR, LVH, atrial fibrillation on apixaban, VIRGIE on CPAP, hypothyro idism, hypertension, diabetes type 2, hyperlipidemia, depression, anemia, and generalized debility wh o presents to the emergency department today with complaints of fever and generalized weakness. The patient with a history of recurrent UTI. She was followed by her urologist and was placed on Macrobi d for pyuria in the clinic. Urine culture appears to have grown only yeast species from a culture da ghazala 10/07/2017. She otherwise denies any dysuria. She did have 1 episode of hematuria approximately 6 days ago, but no symptoms since that time. She denies any flank pain. She has a chronic cough th at is unchanged from her baseline. She denies any rhinorrhea, sore throat, diarrhea. She did have a fever to 102 Fahrenheit and presented to the emergency department via EMS. Of note, the patient is followed by Urology. The patient with a recent hospitalization on 09/02/2017. The patient presented with a generalized we akness. At that time the patient also had some mild pyuria with hematuria, but no culture was obtain ed at that time. She was found to have progression of her valvular heart disease and opted for outpa tient followup. She subsequently underwent right heart catheterization on 10/06/2017 and was found t o have critical aortic stenosis and felt to be overall a poor candidate for any surgical intervention . REVIEW OF SYSTEMS: The patient does report a little bit of a headache, otherwise is negative except as noted above. ALLERGIES: No known drug allergies. HOME MEDICATIONS: Macrobid 100 mg p.o. b.i.d., metformin 1000 mg p.o. b.i.d. with meals, amlodipine 10 mg p.o. daily, glipizide XL 2.5 mg p.o. daily, Wellbutrin 100 mg p.o. daily, valsartan 320 mg p.o. daily, Actos 15 mg p.o. daily, [place]-3 fish oil 1000 mg p.o. b.i.d., melatonin 3 mg p.o. at HS, levo thyroxine 125 mcg p.o. daily, atorvastatin 20 mg p.o. daily, apixaban 5 mg p.o. b.i.d., Abilify 10 mg p.o. daily. PAST MEDICAL HISTORY: Significant for critical aortic stenosis, severe MR, LVH with preserved EF, hy poxia, VIRGIE on CPAP nasal, CAD that is nonocclusive, anemia, paroxysmal atrial fibrillation on apixaba n, depression, hypothyroidism, hypertension, hyperlipidemia, diabetes type 2, CKD stage 3, recurrent UTI with previous history of staghorn renal calculus status post removal. PAST SURGICAL HISTORY: Significant for bilateral cataract extraction with lens reflex, right heart c atheterization, nephrostomy tubes, and ORIF of the leg. FAMILY HISTORY: Significant for father, brother with history of CAD in their 50s. SOCIAL HISTORY: Patient lives alone. She does not smoke, drink, or do drugs. CODE STATUS: Full. PHYSICAL EXAMINATION: VITAL SIGNS: Upon arrival to the emergency department, blood pressure 127/75, heart rate 116, O2 sat 88% on room air with a temperature 38.1. Vitals available time of interview blood pressure 114/63, heart rate 98, respiratory rate 18, O2 saturation 96% on 2 L by nasal cannula, temperature 37.3. GENERAL: No acute distress. Very pleasant, frail, elderly female who is lying q uietly in bed. Nasal CPAP is in place. She wakes easily to name. HEAD: Normocephalic, atraumatic. EYES: Extraocular muscles grossly intact. Pupils equal, round, slightly decreased reactivity to l ight bilaterally, but symmetric lens reflex is appreciated bilaterally. ENT: Mucous membranes appea r slightly dry. Nasal CPAP is in place. No oropharyngeal erythema or exudates. NECK: Supple. Tra guru midline. CV: Regular rate and rhythm. Patient does have a 3/6 prominent systolic murmur. No chest wall tenderness to palpation. RESPIRATORY: Lungs with diminished breath sounds at the bases. No wheezes or rhonchi appreciated. Nasal CPAP is in place. ABDOMEN: Obese soft, nontender to palp ation. No rebound, guarding, or masses appreciated. Positive bowel sounds. : No suprapubic tend erness to palpation. No Bush catheter in place. EXTREMITIES: Patient without any appreciated lowe r extremity edema. Patient with trace pedal pulses bilaterally, symmetric. NEURO: Grossly nonfocal . No facial drooping. Moves all extremities. Awake, alert, oriented x3. PSYCH: Patient's affect slightly flat, but she is cooperative and pleasant. Thought process, content, and all questions are appropriate. X-RAY DATA: EKG reviewed myself showing sinus tach, small T-waves are present, PVC, LVH, with some r eciprocal repol changes. Chest x-ray image report reviewed showing early CHF. No evidence of pneumonia, mildly enlarged cardi ac silhouette, small bilateral pleural effusions, chronic atherosclerotic calcifications of the aorti c arch. ASSESSMENT AND PLAN: A pleasant 72-year-old female with multiple medical issues in particular cardia c, who presents with complaints of fever. 1. Systemic inflammatory response syndrome criteria without meeting severe sepsis. Possibilities in cluding urinary tract infection, however patient's previous culture did not produce any growth of charlie teria, did have some growth of yeast species. The patient has been started on Rocephin, which we santa l continue. As she does have some pyuria, will await repeat culture. She also has some bilateral pl eural effusions, but no evidence of pneumonia at this time. Again, on Rocephin, but I do not believe the patient requires triple therapy antibiotics at this point for a respiratory source is less likel y. No other evidence of infectious process at this time. Patient's fever and tachycardia have impro nikhil. Her lactate was 2.0 which was repeated and found to be 1.2. The patient does have blood cultur es pending, urine culture pending and we will continue to monitor for any growth. The patient's flu swab PCR was negative for A or B. 2. Pyuria. Rocephin as noted above. Patient is currently asymptomatic. 3. Anemia of chronic disease. Patient without any evidence of active bleeding. She does report a h istory of gross hematuria several days ago. She has received IV fluids. We will monitor H and H. 4. Chronic kidney disease, stage 3. Appears close to baseline. Will hold off on IV fluids and cont inue to monitor. 5. Diabetes type 2. Blood sugars are elevated. The patient will be placed on an insulin sliding sc winston in addition to her home medications with exception of metformin will be held for now due to her e levated lactate. 6. Chronic medical issues: Critical aortic stenosis, left ventricular hypertrophy, severe mitral re gurgitation. The patient does not appear decompensated at this time. She previously declined any di uresis. Will reassess and hold intravenous fluids. 7. Hypoxemia appears chronic. The patient is receiving supplemental oxygen. 8. Obstructive sleep apnea on continuous positive airway pressure, which has been ordered. 9. History of coronary artery disease nonocclusive disease. Continue patient's angiotensin receptor gautam, statin. 10. Chronic kidney disease, stage 3 appears close to baseline. 11. Diabetes type 2, uncontrolled. Resume patient's glipizide and Actos. Hold on her metformin sec ondary to lactic acid. 12. Benign essential hypertension. Blood pressure is acceptable at this time. Plan to resume patie nt's home valsartan and amlodipine. 13. Hypothyroidism. Resume levothyroxine. 14. Anxiety depression. Continue patient's bupropion. 15. Paroxysmal atrial fibrillation on anticoagulation. Continue her apixaban. Patient does not hav e any rate control listed, so we will monitor on telemetry. 16. Fluid, electrolyte, nutrition: The patient did receive some intravenous fluids per sepsis mary col, but given her history of pleural effusions and valvular heart disease, we will hold off on furth er intravenous fluids and monitor fluid status closely. The patient may require some diuresis, but s he previously declined during her last hospital stay. At this time, she is in no acute distress. Do es not appear volume overloaded, so readdress in the morning. 17. Prophylaxis on apixaban, sequential compression devices as tolerated. 18. Cor status is full. 19. Disposition. The patient has been admitted to inpatient status on progressive care unit floor f or concerns of possible complicated urinary tract infection, which she has failed outpatient treatmen t for while awaiting urine cultures and further evaluation. Patient may require additional imaging g iven her history of staghorn calculus, but at this time is not experiencing any flank pain or urinary symptoms besides reported history of hematuria. /[id number]/MODL
[2017-10-10] MEDS: ATORVASTATIN CALCIUM 20 MG TAB PO SCH (08:31)
[2017-10-10] MEDS: buPROPion SR 100 MG TAB PO SCH (08:32)
[2017-10-10] MEDS: ARIPiprazole 10 MG TAB PO SCH (08:55)
--- NOTE | 2017-10-10 10:22 | ASMTCMCOM ---
CM Note CM Note Notes: Patient admitted for SIRS with unknown source. She has a long urologic history including frequent UTI. She has blood cultures pending. She has quite a few other comorbidities, including aortic stenosis and mitral regurgitation. She had a R heart cath 10/06/17 but was determined to be a poor surgical candidate. I spoke with patient, who lives alone. She says she has friends who help her out. She denies family. She has been to [facility] twice and hopes not to go again, although she did not have a bad experience there. She is amenable to home care. We will await recommendations from PT/OT and providers and follow for discharge planning. Current Discharge plan: TBD Date Signed: 10/10/2017 10:21 AM Electronically Signed By:Gayatri Oneal RN
--- NOTE | 2017-10-10 12:19 | PDMN ---
Medical Necessity Medical necessity: Pt meets IP criteria per MD; est los >2 mn for eval/tx of fevers & generalized weakness r/t SIRS & concerns of possible complicated UTI which pt has failed outpatient tx for; admit for further workup/monitoring & therapy; hx critical aortic stenosis, severe MR, VIRGIE, CAD, AFIB on AC, htn, diabetes, CKD stage 3, recurrent UTIs; per H&P & order 10/09/17
--- NOTE | 2017-10-10 15:19 | HOSPPROG ---
Hospitalist Progress Note Assessment/Plan: 72-year-old female admitted with complaints of fever headache feeling fuzzy and feeling ill. She has a significant medical history with known valvular heart disease with severe and MR. There is also history of recurrent urinary tract infections. Past medical history he has significant for hypertension proximal atrial fibrillation on apixaban, diabetes mellitus, chronic kidney disease, and diabetes mellitus. Patient is new to me today -sirs: Fever with leukocytosis on admission with a lactate of 2.0. Patient is now improved. Blood cultures and urine cultures are pending. Flu screen for a and B is negative. Blood glucose has been normal -pyuria with a question of a UTI. Urine culture is pending. -diabetes mellitus with glucose currently on good control. -proximal atrial fibrillation on apixaban and we are continuing her anticoagulation. -CKD: Baseline creatinine approximately 1.2 and she is at her baseline -valvular heart disease: Severe and MR. Exam is consistent with these findings. She is not a surgical candidate per previous evaluation. Plan: Continue cardiac monitoring and follow her glucose, check urine cultures , and PT evaluation for possibility of returning home. Patient lives at home alone and has 1 flight of stairs to get into her house. Time: 40 min the. The patient was discussed on rounds with Dr. Gunter and with nursing staff. - Subjective: Alert and oriented and says she feels improved but not normal. Objective: Vital Signs Temp Pulse Resp BP Pulse Ox 37.1 C 84 18 106/60 93 10/10/17 12:00 10/10/17 12:00 10/10/17 12:00 10/10/17 12:00 10/10/17 12:00 Laboratory Results 10/10/17 03:50 10/10/17 03:50 10/09/17 10/10/17 10/11/17 05:59 05:59 05:59 Intake Total 3310 Output Total 150 Balance 3160 PT 16.6 SEC (12.0-15.0) H 10/09/17 20:27 INR 1.32 (0.83-1.16) H 10/09/17 20:27 - Time Spent With Patient Time Spent with Patient: greater than 35 minutes Time Spent with Patient: Greater than 35 minutes spent on this patients care, greater than 50% of time spent counseling, educating, and coordinating care regarding the above mentioned plan. - Pending Discharge Pending Discharge Within 24 Hours: Yes Pending Discharge Date: 10/11/17 Pending Discharge Time: 11:00 - Physical Exam Constitutional: no apparent distress Eyes: PERRL Ears, Nose, Mouth, Throat: moist mucous membranes Cardiovascular: regular rate and rhythym, systolic murmur Respiratory: no respiratory distress, no rales or rhonchi, clear to auscultation Gastrointestinal: normoactive bowel sounds, soft, non-tender abdomen Musculoskeletal: other (Trace peripheral edema) Neurologic: AAOx3, CN II-XII Intact ICD10 Worksheet Patient Problems: Problems Problem Status Onset Staghorn renal calculus Acute Aortic stenosis Acute Weakness Acute Elevated troponin Acute Urinary tract infection Acute Pyelonephritis Acute CKD (chronic kidney disease), stage III Acute Dehydration Acute Weakness Acute
[2017-10-10] MEDS ORDERED: D50W 25 GM/50 ML SYR IVP PRN (17:18)
[2017-10-10] MEDS: INSULIN LISPRO 100 UNIT/ML SC SCH (18:24)
[2017-10-10] MEDS ORDERED: MELATONIN 3 MG TAB PO SCH (21:00)
[2017-10-11] MEDS: LEVOTHYROXINE 125 MCG TAB PO SCH (02:06)
[2017-10-11 04:43] LABS: PLATELET COUNT 254 10^3/uL (150-400)
--- NOTE | 2017-10-11 08:39 | HOSPPROG ---
Hospitalist Progress Note Assessment/Plan: 72-year-old female admitted with complaints of fever headache feeling fuzzy and feeling ill. She has a significant medical history with known valvular heart disease with severe and MR. There is also history of recurrent urinary tract infections. Past medical history he has significant for hypertension proximal atrial fibrillation on apixaban, diabetes mellitus, chronic kidney disease, and diabetes mellitus. Patient is new to me today -sirs: Fever with leukocytosis on admission with a lactate of 2.0. Patient is now improved. Blood cultures and urine cultures are pending. Flu screen for a and B is negative. Blood glucose has been normal -pyuria with a question of a UTI. Urine culture is pending. -diabetes mellitus with glucose currently on good control. -proximal atrial fibrillation on apixaban and we are continuing her anticoagulation. -CKD: Baseline creatinine approximately 1.2 and she is at her baseline -valvular heart disease: Severe and MR. Exam is consistent with these findings. She is not a surgical candidate per previous evaluation. Plan: Continue cardiac monitoring and follow her glucose, check urine cultures , and PT evaluation for possibility of returning home. Patient lives at home alone and has 1 flight of stairs to get into her house. Time: 40 min the. The patient was discussed on rounds with Dr. Gunter and with nursing staff. - Objective: Vital Signs Temp Pulse Resp BP Pulse Ox 36.8 C 91 18 122/64 H 92 10/11/17 08:26 10/11/17 08:26 10/11/17 08:26 10/11/17 08:26 10/11/17 08:26 Laboratory Results 10/11/17 03:35 10/11/17 03:35 10/10/17 10/11/17 10/12/17 05:59 05:59 05:59 Intake Total 3310 1250 Output Total 150 1150 Balance 3160 100 PT 16.6 SEC (12.0-15.0) H 10/09/17 20:27 INR 1.32 (0.83-1.16) H 10/09/17 20:27 Laboratory Tests 04/30/16 10/23/16 11/16/16 11:11 12:15 11:48 WBC Hgb Plt Count INR VBG Lactic Acid Creatinine 0.9 1.3 H 1.6 H POC Glucose Calcium Albumin Nasal Influenza A PCR Nasal Influenza B PCR 05/02/17 05/06/17 05/06/17 03:15 03:45 03:45 WBC 12.28 H 5.94 Hgb 11.5 L 10.2 L Plt Count INR VBG Lactic Acid Creatinine 1.3 H POC Glucose Calcium Albumin Nasal Influenza A PCR Nasal Influenza B PCR 10/09/17 10/09/17 10/09/17 20:27 20:27 20:27 WBC 12.09 H Hgb 10.4 L Plt Count INR 1.32 H VBG Lactic Acid Creatinine 1.2 H POC Glucose Calcium Albumin Nasal Influenza A PCR Nasal Influenza B PCR 10/09/17 10/09/17 10/09/17 21:24 21:24 23:14 WBC Hgb Plt Count INR VBG Lactic Acid 2.0 Creatinine POC Glucose 215 H Calcium Albumin Nasal Influenza A PCR NEGATIVE FOR FLU A Nasal Influenza B PCR NEGATIVE FOR FLU B 10/10/17 10/10/17 10/10/17 02:07 03:50 17:52 WBC Hgb Plt Count INR VBG Lactic Acid 1.2 Creatinine POC Glucose 108 H Calcium Albumin 2.5 L Nasal Influenza A PCR Nasal Influenza B PCR 10/11/17 10/11/17 10/11/17 03:35 03:35 08:16 WBC 7.13 Hgb 9.2 L Plt Count 254 INR VBG Lactic Acid Creatinine 1.2 H POC Glucose 114 H Calcium 8.3 L Albumin Nasal Influenza A PCR Nasal Influenza B PCR ICD10 Worksheet Patient Problems: Problems Problem Status Onset Staghorn renal calculus Acute Aortic stenosis Acute Weakness Acute Elevated troponin Acute Urinary tract infection Acute Pyelonephritis Acute CKD (chronic kidney disease), stage III Acute Dehydration Acute Weakness Acute
[2017-10-11] MEDS: ARIPiprazole 10 MG TAB PO SCH (09:32)
[2017-10-11] MEDS: buPROPion SR 100 MG TAB PO SCH (09:32)
[2017-10-11] MEDS: ATORVASTATIN CALCIUM 20 MG TAB PO SCH (09:32)
[2017-10-11] MEDS: APIXABAN 5 MG TAB PO SCH (09:33)
[2017-10-11] MEDS: INSULIN LISPRO 100 UNIT/ML SC SCH ×2 (09:33→12:54)
[2017-10-11 11:45] VITALS: TEMP 98.1
--- NOTE | 2017-10-11 14:37 | PDIAF ---
- Diagnosis Code Status: Full Code - Medication Management Discharge Medications: Medications to Continue on Transfer ARIPiprazole [Abilify 10 mg (*)] 10 mg PO DAILY 05/02/17 [Last Taken 10/09/17] Apixaban [Eliquis] 5 mg PO BID 05/02/17 [Last Taken 10/09/17] Atorvastatin Calcium [Lipitor 20 mg (*)] 20 mg PO DAILY 05/02/17 [Last Taken ] Herbals/Supplements -Info Only 1 ea PO DAILY 05/02/17 [Last Taken 10/09/17] Levothyroxine [Synthroid 125 mcg (*)] 125 mcg PO DAILY06 05/02/17 [Last Taken ] Pioglitazone HCl [Actos 15mg (*)] 15 mg PO DAILY 05/02/17 [Last Taken 10/09/17] Valsartan [Diovan] 320 mg PO DAILY 05/02/17 [Last Taken 10/09/17] buPROPion SR [Wellbutrin 100mg SR (*)] 100 mg PO DAILY 05/02/17 [Last Taken ] glipiZIDE XL [Glucotrol Xl 2.5 mg (*)] 2.5 mg PO DAILY 05/02/17 [Last Taken ] metFORMIN HCL [Glucophage 1000 mg] 1,000 mg PO BIDMEAL 05/02/17 [Last Taken 08:00] Melatonin [Melatonin 3 MG (*)] 3 mg PO HS 09/29/17 [Last Taken 10/09/17] [place]-3 Fatty Acids [Fish Oil 1000 mg (*)] 1,000 mg PO BID 09/29/17 [Last Taken 10/09/17] Nitrofurantoin Monohyd/M-Cryst [Macrobid 100 mg Capsule] 100 mg PO BID 10/09/17 [Last Taken 10/09/17 08:00] amLODIPine BESYLATE [Norvasc 10 mg (*)] 10 mg PO DAILY 10/09/17 [Last Taken ] Discharge Medications: Refer to the Discharge Home Medication list for PRN reason. - Orders Services needed: Home Care, Registered Nurse Home Care Face to Face: I certify that this patient was under my care and that I had the required [id number] encounter meeting the encounter requirements on the discharge day. My findings support the fact that the patient is homebound as defined in Home Care Face to Face Continued: CMS Chapter 7 Medicare Benefits Manual 30.1.1 , The condition of the patient is such that there exists a normal inability to leave home and consequently, leaving home would require a considerable and taxing effort. Isolation Type: None Diet Recommendation: no restrictions on diet Diet Texture: Regular Texture Diet - Follow Up Care Current Providers and Referrals: Patient,NotPresent [Unknown] - As per Instructions Mariam Dyer MD [Primary Care Provider] - follow up in 1 week
[2017-10-11 15:28] VITALS: BP 119/80; PULSE 84; RESP 16; O2SAT 94
--- NOTE | 2017-10-11 15:39 | ASDISCHSUM ---
Discharge Information Plan Status:Home with Home Health Medically Cleared to Leave:10/10/2017 Discharge Date:10/10/2017 CM D/C Disposition:Home Health Service ADT D/C Disposition:Home Health Service Projected Discharge Date:10/11/2017 11:00 AM Transportation at D/C:Friend Discharge Delay Reason: Follow-Up Date:10/11/2017 11:00 AM Discharge Slot: Final Diagnosis: Placement Information Referral Type:*Home Health Care Services Referral ID:[id number] Provider Name:[facility] Care Address 1:[address] [place] [address] Address 2: City:[place] Selection Factors: State:[place] Patient Contact Information Contact Name:CASA Relationship:Friend Address: City: [facility] Phone: [facility]/Zip Code: Email: Financial Information Financial Class:Medicare Primary Plan Desc:MEDICARE INPATIENT Primary Plan Number:[id number] Secondary Plan Desc:[employer] INDEMNITY Secondary Plan Number:[id number] Assessment Information LACE LACE Length of stay for Answers: 2 days current admission Acuity / Level of Answers: Yes Care: Did the patient have an inpatient admission? Comorbidities - select Answers: Diabetes (uncontrolled or all that apply controlled) Mild liver or renal disease Other Notes: Critical aortic stenosis, severe MR, LV H # of Emergency department Answers: 1-2 visits in the last 6 months Social determinants Answers: Mental health diagnosis (anxiety, depression, pers onality disorders, etc.) Score: 13 Date Signed: 10/11/2017 03:38 PM Electronically Signed By:ZEKE Lozoya [facility] Progress Note CM Note CM Note Notes: Patient admitted for SIRS with unknown source. She has a long urologic history including frequent UTI. She has blood cultures pending. She has quite a few other comorbidities, including aortic stenosis and mitral regurgitation. She had a R heart cath 10/06/17 but was determined to be a poor surgical candidate. I spoke with patient, who lives alone. She says she has friends who help her out. She denies family. She has been to [facility] twice and hopes not to go again, although she did not have a bad experience there. She is amenable to home care. We will await recommendations from PT/OT and providers and follow for discharge planning. Current CM Discharge plan: TBD Date Signed: 10/10/2017 10:21 AM Electronically Signed By:Gayatri Oneal RN Case Management Discharge Plan Note Case Management Discharge Discharge Order Complete? Answers: Yes Patient to Obtain Answers: Other Notes: Friends/neighbors Medications Transportation Arranged Answers: Family/Friends Faxed Final Orders Answers: Yes Discharge Comments Notes: Pt is discharging home today with [facility]. Left msg with [facility] production solderer RN. HENDRICKSON signed, copy in chart and to pt. Date Signed: 10/11/2017 03:34 PM Electronically Signed By:ZEKE Lozoya Intervention Information
--- NOTE | 2017-10-12 13:36 | GDS ---
[f rep st] DISCHARGE SUMMARY NEW AND ACUTE DIAGNOSES ON THIS ADMISSION: 1. Systemic inflammatory response syndrome, with a fever of 38.1 on admission, leukocytosis of 12,00 0, normal blood pressure, and a heart rate of 116 the day following admission. 2. Weakness and fatigue of unclear etiology. 3. Pyuria without evidence of infection. Urine culture is negative. CHRONIC DIAGNOSES: Chronic kidney disease with a baseline creatinine of 1.2. The patient at [facility] at discharge. CHRONIC DIAGNOSES: 1. Diabetes mellitus, without evidence of hyperglycemia or hypoglycemia. 2. Critical aortic stenosis and severe mitral regurgitation without evidence of decompensation. 3. Obstructive sleep apnea syndrome. 4. Hypertension in good control. CONSULTATION: None. PROCEDURE: Urine culture, which was negative showing only Funmilayo without evidence of bacterial inva christian. HOSPITAL COURSE: This is a 72-year-old female with a known history of critical aortic stenosis and s evere MR, who is undergoing evaluation for a TVAR procedure. She presented with a complaint of weakn ess in the setting of a history of frequent pyuria and frequent urinary tract infections. She met cr iteria for SIRS with febrile on admission, leukocytosis, though her venous lactate was 1.2, and she w as tachycardic following admission. Urine cultures were negative. Blood pressure remained stable. Her renal function was at baseline with a creatinine of 1.2. The patient slowly recovered without evidence of hypoglycemia or hyperglycemia, orthostasis, or signs of decompensation secondary to her valvular heart disease. The exact etiology of this episode of we akness was unclear. PT evaluated and found the patient safe to return home. She is aware that she h as an ongoing evaluation for a TVAR procedure and repair of her aortic stenosis. DISCHARGE MEDICATIONS: These are unchanged from her admission and are as follows: Lipitor 20 mg bonnie ly, Eliquis 5 mg b.i.d., Abilify 10 mg daily, Actos 15 mg daily, Synthroid 125 mcg, herbal supplement ation, Glucotrol XL 2.5 mg daily, Wellbutrin 100 mg daily, valsartan 320 mg daily, metformin 1000 mg b.i.d. with meals, melatonin 3 mg, [place]-3 fatty acids 1000 mg b.i.d., Norvasc 10 mg daily, Macrobid 100 mg b.i.d. PLAN: The lady will follow up in 1 week with Cardiology and Dr. Jackson. Her PCP is Dr. Mariam melo, and she will follow up in 2 weeks as needed. Between Dr. Jackson and Dr. Dyer they are coordinati ng the evaluation of this patient for a TVAR procedure. TIME: This discharge required 50 minutes, greater than 50% to correctional counselor/case manager, coordinate her care, and assu re her safety at home. /[id number]/MODL
--- NOTE | 2017-10-16 11:56 | ASMTCMCOM ---
CM Note CM Note Notes: CM was informed by Amy RN on 2w while she was doing her pt call back to obtain feedback. Pt did not get a call from [facility] at time of d/c. CM called [facility] and arranged for pt to have HC services through [facility]. CM provided [facility] w/ phone number to call pt directly. CM available for changes. Date Signed: 10/16/2017 11:56 AM Electronically Signed By:YESI Oreilly
== END 2017-10-11 18:45 | disposition home health service (06) | DRG 864 ==
LOC: EDUNIT# → F2W 22:33
PROVIDERS: ADMIT Internal Medicine; ATTEND Internal Medicine
DX: R50.9 Fever, unspecified (principal); R53.1 Weakness; R51 Headache; E11.22 Type 2 diabetes mellitus with diabetic chronic kidney disease; N18.3 Chronic kidney disease, stage 3 (moderate); I48.0 Paroxysmal atrial fibrillation; I08.0 Rheumatic disorders of both mitral and aortic valves; G47.33 Obstructive sleep apnea (adult) (pediatric); E03.9 Hypothyroidism, unspecified; E78.5 Hyperlipidemia, unspecified; Z79.01 Long term (current) use of anticoagulants; Z87.891 Personal history of nicotine dependence; Z87.442 Personal history of urinary calculi; Z87.440 Personal history of urinary (tract) infections
CPT/HCPCS: 96365; 97161-GP; 97165-GO; 97530-GO; 97535-GO; G8978-GP-CI; G8979-GP-CI; G8984-GO-CI; G8985-GO-CI; J0696; J1815

== ENCOUNTER → 2017-10-17 | Outpatient (CLI) | payer OTHER ==
[~2017-10-17] MED LIST changes: -IOPAMIDOL (ISOVUE-300) 100 ML BTL IV ONE; +IOPAMIDOL (ISOVUE-370) 150 ML BTL IV ONE
== END ==
LOC: FIMAGING 10:53
PROVIDERS: ATTEND Internal Medicine Cardiovascular Disease
DX: I35.0 Nonrheumatic aortic (valve) stenosis (principal)
CPT/HCPCS: 71275; 74174; Q9967

== ENCOUNTER 2017-10-27 07:34 | Inpatient (IN) | payer OTHER ==
[2017-10-27] MEDS ORDERED: IOPAMIDOL (ISOVUE-370) 150 ML BTL IV ONE (09:07)
--- NOTE | 2017-10-27 09:07 | PDPROPOC ---
Sedation Plan of Care Sedation Plan of Care: vital signs stable, mental status noted, patient educated of risks, benefits, alternatives, patient can tolerate sedation ASA Classification: ASA 2 Planned drugs: midazolam, other Mallampati Score: Class 1 Mallampati Reference Image: Patient passed 3-3-2 rule?: Yes
--- NOTE | 2017-10-27 09:13 | PDGENHP ---
History & Physical Chief Complaint: SOB History of Present Illness: 72 yo female with hx of severe , SOB deemed suitable candidate for TAVR. Pertinent Past, Social, Family History: HTN, CRI Relevant Physical Exam: 10/28 Cardiorespiratory Assessment: stable for gen anesthesia
--- NOTE | 2017-10-27 09:42 | PDANEPAE ---
ANE History of Present Illness 72 yo for tavr ANE Past Medical History - Cardiovascular History Hx Hypertension: Yes Hx Arrhythmias: Yes Hx Chest Pain: No Hx Coronary Artery / Peripheral Vascular Disease: No Hx CHF / Valvular Disease: Yes Hx Palpitations: No Cardiovascular History Comment: A FIB. CPAP - Pulmonary History Hx COPD: No Hx Asthma/Reactive Airway Disease: No Hx Recent Upper Respiratory Infection: No Hx Oxygen in Use at Home: Yes Hx Sleep Apnea: Yes Pulmonary History Comment: CPAP - Neurologic History Hx Cerebrovascular Accident: No Hx Seizures: No Hx Dementia: No - Endocrine History Hx Diabetes: No Endocrine History Comment: TYPE2 - Renal History Hx Renal Disorders: No - Liver History Hx Hepatic Disorders: No - Neurological & Psychiatric Hx Hx Neurological and Psychiatric Disorders: Yes Neurological / Psychiatric History Comment: depression - Cancer History Hx Cancer: No - Congenital Disorder History Hx Congenital Disorders: No - GI History Hx Gastrointestinal Disorders: No - Other Health History Other Health History: bruises on L. arm, weak legs - Chronic Pain History Chronic Pain: No - Surgical History Prior Surgeries: Nephrostomy tubes 10/2016, pins in left leg. appy JENNIFER Review of Systems Review of Systems: - Exercise capacity METS (RN): 3 METS ANE Patient History - Allergies Allergies/Adverse Reactions: No Known Allergies Allergy (Verified 09/02/17 09:15) - Home Medications Home Medications: ARIPiprazole [Abilify 10 mg (*)] 10 mg PO DAILY 05/02/17 [Last Taken 10/09/17] Apixaban [Eliquis] 5 mg PO BID 05/02/17 [Last Taken 10/09/17] Atorvastatin Calcium [Lipitor 20 mg (*)] 20 mg PO DAILY 05/02/17 [Last Taken ] Herbals/Supplements -Info Only 1 ea PO DAILY 05/02/17 [Last Taken 10/09/17] Levothyroxine [Synthroid 125 mcg (*)] 125 mcg PO DAILY06 05/02/17 [Last Taken ] Pioglitazone HCl [Actos 15mg (*)] 15 mg PO DAILY 05/02/17 [Last Taken 10/09/17] Valsartan [Diovan] 320 mg PO DAILY 05/02/17 [Last Taken 10/09/17] buPROPion SR [Wellbutrin 100mg SR (*)] 100 mg PO DAILY 05/02/17 [Last Taken ] glipiZIDE XL [Glucotrol Xl 2.5 mg (*)] 2.5 mg PO DAILY 05/02/17 [Last Taken ] metFORMIN HCL [Glucophage 1000 mg] 1,000 mg PO BIDMEAL 05/02/17 [Last Taken 08:00] Melatonin [Melatonin 3 MG (*)] 3 mg PO HS 09/29/17 [Last Taken 10/09/17] [place]-3 Fatty Acids [Fish Oil 1000 mg (*)] 1,000 mg PO BID 09/29/17 [Last Taken 10/09/17] Nitrofurantoin Monohyd/M-Cryst [Macrobid 100 mg Capsule] 100 mg PO BID 10/09/17 [Last Taken 10/09/17 08:00] amLODIPine BESYLATE [Norvasc 10 mg (*)] 10 mg PO DAILY 10/09/17 [Last Taken ] - Anes Hx Anes Hx: no prior problems - Smoking Hx Smoking Status: Former smoker - Family Anes Hx Family Hx Anesthesia Complications: none ANE Labs/Vital Signs - Vital Signs Height: 5 ft 6 in Weight: 75.296 kg ANE Physical Exam - Airway Mallampati Score: Class 2 Mouth exam: normal dental/mouth exam - Pulmonary Pulmonary: no respiratory distress - Cardiovascular Cardiovascular: regular rate and rhythym - ASA Status ASA Status: III ANE Anesthesia Plan Anesthesia Plan: general endotracheal anesthesia
[2017-10-27] MEDS ORDERED: REMIFENTANIL HCL 1 MG VIAL ONE (09:48)
[2017-10-27] MEDS ORDERED: fentaNYL 100 MCG/2 ML INJ ONE (09:49)
[2017-10-27] MEDS ORDERED: PROPOFOL/EMULSION 500 MG/50 ML BOTTLE IV ONE (09:49)
[2017-10-27] MEDS ORDERED: PHENYLEPHRINE HCL 100 MCG/ML SYR ONE (10:24)
[2017-10-27] MEDS ORDERED: ceFAZolin 1 GM VIAL ONE (10:24)
[2017-10-27] MEDS ORDERED: ROCURONIUM 100 MG/10 ML VIAL ONE (10:24)
[2017-10-27] MEDS ORDERED: oxyCODONE IR 5 MG TAB PO PRN (11:14)
[2017-10-27] MEDS ORDERED: ONDANSETRON 4 MG/2 ML VIAL IVP PRN (11:14)
[2017-10-27] MEDS ORDERED: ONDANSETRON DISINTEGRATING 4 MG TAB PO PRN (11:14)
[2017-10-27] MEDS ORDERED: ATROPINE SULFATE 1 MG/10 ML SYR IVP PRN (11:14)
[2017-10-27] MEDS ORDERED: HYDROmorphONE/DILAUDID 1 MG/ML INJ IVP PRN (11:14)
[2017-10-27] MEDS ORDERED: hydrALAZINE 20 MG/ML VIAL IVP PRN (11:14)
[2017-10-27] MEDS ORDERED: HYDROmorphONE/DILAUDID 2 MG/ML INJ IVP PRN (11:53)
--- NOTE | 2017-10-27 12:34 | CPIP ---
[f rep st] INVASIVE CARDIAC PROCEDURE DATE OF PROCEDURE: 10/27/2017 INDICATION FOR PROCEDURE: Critical symptomatic aortic stenosis. CO-SURGEONS: Dr. Mj Mcpherson and Dr. Melody Osborn. PROCEDURE: 1. Nonselective left groin sheathogram. 2. Nonselective right groin sheathogram. 3. 6-Cymro sheath placed in right common vein with temporary pacemaker placed in right ventricle. 4. Balloon aortic valve plasty. 5. Placement of Medtronic CoreValve Evolut PRO 29 mm valve by the transfemoral route. 6. Left heart catheterization. BRIEF HISTORY: Briefly, this is a 72-year-old female, who has a history of frailty, symptomatic yola re aortic stenosis. The patient was deemed to be a suitable candidate for transfemoral TAVR. DESCRIPTION OF PROCEDURE: The patient was brought to [facility] where the patient was electively intubated. FELIPE performed by Dr. Melody Osborn. The patient was administered 1 g Ancef prior to the case. A 6-Cymro sheath placed in right common femoral vein. A 6-Cymro sheath placed in ri ght common femoral artery verified angiographically. A 6-Cymro sheath placed in the left common fem oral artery verified angiographically. This was then upsized to a 16-Cymro sheath after triple Perc lose placement. The valve was crossed and AL1 catheter and a straight stiff Glidewire, switched out for a pigtail catheter, switched out for a Confida wire. The patient was administered 8000 heparin I V. Balloon aortic valvoplasty commenced with a 20 x 60 balloon with a rapid up-and-down inflation wi th the patient paced at 180 beats per minute. After this was performed, the balloon was removed. We then proceeded with placement of a Medtronic CoreValve Evolut PRO 29 mm valve via the transfemoral r oute. This was deployed successfully. Post deployment, there was a mild area perivalvular leak note d. To confirm that this perivalvular leak was a hemodynamically significant, the wire was switched o ut for a pigtail catheter. EDPs were then obtained which showed an EDP of 12 mmHg and an LVEDP. The re was no gradient between the LV and the aorta. At this time, the pigtail catheter was removed over an 0.035 wire. Left groin was closed with triple Perclose placement. The right groin was closed an 8-Cymro Angio-Seal. The right common femoral vein was closed with manual pressure. Patient tolera ghazala the procedure well with no complications. IMPRESSION: Successful placement of Medtronic CoreValve Evolut PRO 29 mm valve by the transfemoral r oute. PLAN: The patient will be admitted to our ICU. Further orders following clinical correlation. /[id number]/MODL
[2017-10-27] MEDS: ACETAMINOPHEN 325 MG TAB PO SCH ×2 (12:39→18:50)
--- NOTE | 2017-10-27 13:35 | PDMN ---
Medical Necessity Medical necessity: IP only procedure per [facility] for TAVR (cpt 85791)
--- NOTE | 2017-10-27 13:38 | POSTANESTH ---
Post Anesthetic Evaluation Cardiovascular Status: Normal, Stable Level of Consciousness/Mental Status: Can Participate in Eval Pain Control: Adequate, Prn Tx Ordered Nausea/Vomiting Control: Adequate, Prn Tx Ordered Complications Possibly Related to Anesthesia: None Noted
[2017-10-27] MEDS ORDERED: PROTAMINE SULFATE 50 MG/5 ML VIAL IVP ONE (13:55)
[2017-10-27] MEDS ORDERED: HEPARIN 10,000 UNIT/10 ML MDV (1,000 UNIT/ML) ONE (13:55)
[2017-10-27] MEDS ORDERED: D50W 25 GM/50 ML SYR IVP PRN (16:43)
[2017-10-27] MEDS ORDERED: metFORMIN HCL 500 MG TAB PO SCH (18:00)
[2017-10-27] MEDS ORDERED: NON-FORMULARY NEW DRUG (Metformin Hcl [Glucophage 1000 Mg] 1,000 MG) PO SCH (18:00)
[2017-10-27] MEDS: INSULIN REGULAR, HUMAN 100 UNIT/1 ML VIAL STANDARD SC SCH ×2 (18:46→21:15)
--- NOTE | 2017-10-27 19:31 | GOP ---
[f rep st] OPERATIVE REPORT DATE OF OPERATION: SURGEON: Mj Mcpherson DO VETERANS' COUNSELOR: Dr. Osborn. PREOPERATIVE DIAGNOSIS: Critical aortic stenosis. POSTOPERATIVE DIAGNOSIS: Critical aortic stenosis. PROCEDURE PERFORMED: Left common femoral artery, transcatheter aortic valve replacement. Please see separate dictation by Dr. Jackson. FINDINGS: DESCRIPTION OF PROCEDURE: After access was obtained from both groins with arterial access, Dr. Oneyda ireland placed access sheath as per his separate dictation. Removing the 16-Occitan [place] sheath from the l eft common femoral artery, we advanced the 29 mm CoreValve Pro across the valve under fluoroscopic an d echo guidance. I then deployed the valve to 80% with good seating approximately 6 mm below the rig ht coronary sinus catheter with it partially deployed at about 80%. Transesophageal echo revealed go od placement without evidence of impingement of the mitral leaflet and mild to moderate perivalvular leak. I then completely deployed the prosthesis under fluoroscopic guidance and pulled the deploymen t catheter back into the descending thoracic aorta where it was reapproximated. We then spent some t royce evaluating the valve. Dr. Jackson felt that postprocedure dilation was unnecessary for trace to mild perivalvular leak. Gradients were less than 10 mm and excellent flow was noted across the valve . I then removed the deployment sheath while Dr. Jackson placed a [place] sheath across it. Previously placed closure devices were completed by Dr. Jackson. /[id number]/MODL
[2017-10-27] MEDS: MELATONIN 3 MG TAB PO SCH (21:06)
[2017-10-27] MEDS: APIXABAN 5 MG TAB PO SCH (21:06)
[2017-10-27] MEDS: OMEGA-3 FATTY ACIDS 1,000 MG CAP PO SCH (21:06)
[2017-10-27] MEDS: NITROFURANTOIN MACROBID 100 MG CAP PO SCH (21:07)
[2017-10-28] MEDS: ACETAMINOPHEN 325 MG TAB PO SCH ×4 (01:36→20:06)
[2017-10-28 04:42] LABS: PLATELET COUNT 185 10^3/uL (150-400)
[2017-10-28 04:50] LABS: INR 1.27 (0.83-1.16); PROTIME(PATIENT) 16.1 SEC (12.0-15.0)
[2017-10-28] MEDS: LEVOTHYROXINE 125 MCG TAB PO SCH (06:17)
--- NOTE | 2017-10-28 06:58 | PDCARPN ---
Cardiology Progress Note Chief Complaint: SOB Assessment/Plan: Assessment: s/p TAVR Plan: 10/28/17 06:56 DOing well Transfer to floor check echo Hgb lower but stable check labs in AM Subjective: doing well Reviewed/Discussed With: multidisciplinary team Time Spent With Patient: 25 min Objective: Vital Signs (8 Hrs) Pulse Resp BP Pulse Ox 10/28/17 06:00 68 12 119/48 L 94 10/28/17 05:00 63 12 108/47 L 95 10/28/17 04:00 63 14 113/51 L 95 10/28/17 02:00 65 12 106/50 L 95 10/28/17 01:00 65 14 104/46 L 97 10/28/17 00:00 77 15 94/48 L 97 10/27/17 23:00 80 14 96/52 L 97 Intake/Output (24 Hrs) 10/27/17 10/28/17 10/29/17 05:59 05:59 05:59 Intake Total 830 Output Total 0 Balance 830 Intake: Oral (ml) 830 Output: Urine (ml) 0 Toilet 0 Other: Weight 75.296 kg Number of Voids Toilet 3 Result Diagrams: 10/28/17 04:30 10/28/17 04:30 - Physical Exam Constitutional: healthy appearing Eyes: PERRL Ears, Nose, Mouth, Throat: moist mucous membranes Cardiovascular: regular rate and rhythm Peripheral Pulses: 1+: femoral (R), femoral (L) Respiratory: clear to auscultate bilat Gastrointestinal: normoactive bowel sounds Genitourinary: no suprapubic tenderness Skin: no rashes Musculoskeletal: no muscular tenderness Neurologic: AAOx3 Psychiatric: cooperative Lymph, Heme, Immunologic: no lymphadenopathy ICD10 Worksheet Patient Problems: Problems Problem Status Onset Aortic stenosis Acute CKD (chronic kidney disease), stage III Acute Dehydration Acute Elevated troponin Acute Pyelonephritis Acute Staghorn renal calculus Acute Urinary tract infection Acute Weakness Acute Weakness Acute
[2017-10-28] MEDS: INSULIN REGULAR, HUMAN 100 UNIT/1 ML VIAL STANDARD SC SCH ×4 (07:39→22:39)
[2017-10-28] MEDS: ATORVASTATIN CALCIUM 20 MG TAB PO SCH (07:53)
[2017-10-28] MEDS: OMEGA-3 FATTY ACIDS 1,000 MG CAP PO SCH ×2 (07:53→20:10)
[2017-10-28] MEDS: APIXABAN 5 MG TAB PO SCH ×2 (07:53→20:10)
[2017-10-28] MEDS: NITROFURANTOIN MACROBID 100 MG CAP PO SCH ×2 (07:56→20:07)
[2017-10-28] MEDS: buPROPion SR 100 MG TAB PO SCH (07:56)
[2017-10-28] MEDS: VALSARTAN 160 MG TAB PO SCH (07:56)
[2017-10-28] MEDS: PIOGLITAZONE HCL 15 MG TAB PO SCH (07:56)
[2017-10-28] MEDS: ARIPiprazole 10 MG TAB PO SCH (07:56)
--- NOTE | 2017-10-28 08:53 | CPEKG ---
Heart Rate: 99 RR Interval: 606 P-R Interval: 184 QRSD Interval: 112 QT Interval: 376 QTC Interval: 483 P Albion: 45 QRS Albion: -38 T Wave Albion: 94 EKG Severity - ABNORMAL ECG - EKG Impression: SINUS RHYTHM EKG Impression: NONSPECIFIC IVCD WITH LAD EKG Impression: LEFT VENTRICULAR HYPERTROPHY Electronically Signed By: Van Zhang 29-Oct-2017 12:17:11
[2017-10-28] MEDS ORDERED: NON-FORMULARY NEW DRUG (Valsartan [Diovan] 320 MG) PO SCH (09:00)
--- NOTE | 2017-10-28 10:15 | ECHO ---
[email or web address] [address] [address] Main: [phone] Fax: Transthoracic Echocardiogram Name: KAROLYN SOSA MR#: [id number] Study Date: 10/28/2017 Study Time: 09:09 AM Date of : 1945 Age: 72 year(s) Height: 167.6 cm (66 in.) Weight: 75.3 kg (166 lb.) BSA: 1.85 m2 Gender: Female Examination: Echo Indication: Post TAVR Image Quality: Contrast: Requested by: David Jackson BP: 121 mmHg/50 mmHg Heart Rate: Rhythm: Indication: Post TAVR Procedure Staff Photocomposing Machine Operator: Christen Elder RDCS Reading Physician: David Jackson MD Requesting Provider: Conclusions: Moderate to Severe concentric LV hypertrophy. The ejection fraction is estimated to be 75-80 %. Trivial mitral valve regurgitation. There is moderate thickening of the mitral valve leaflets. Mild to moderate mitral stenosis. MV mean PG is 11mmHG.. Cor valve in place. AV max PG is 19mmHG. AV mean PG is 11mmHG. There appears to be small perivalvular leak visualized.. Measurements: Chambers Valvular Assessment AV/MV Valvular Assessment TV/PV Normal Normal Normal Name Value Range Name Value Range Name Value Range IVSd (2D): 1.7 cm (0.6 cm-1.1 AV meanP mmHg ( - ) TR Vmax: 2.84 mm/s ( - ) cm) LVOT Vmax: 1.20 m/s (0.7 m/s-1.1 TR PGmax: 32 mmHg ( - ) LVDd (2D): 4.0 cm (3.9 cm-5.3 m/s) syst. PAP: 37 mmHg ( - ) cm) CHARLINE (VTI): 1.6 cm ( - ) LVDs (2D): 1.8 cm (2.1 cm-4 MV E Vmax: 1.62 m/s ( - ) cm) MV A Vmax: 2.29 m/s ( - ) LVPWd (2D): 1.2 cm ( - ) MV E/A: 0.71 ( - ) LVOTd 1.9 cm 1.9 cm mm MV meanP mmHg ( - ) LVEF (MOD4): 76 % (>=55 %) MVA (Vmax): 1.0 m/s ( - ) EF Range: 75-80 % Continued Measurements: Chambers Valvular Assessment AV/MV Valvular Assessment TV/PV Name Value Name Value Name Value LADs: 4.0 cm MV DecTime: 472 m/s CVP (est.): 5 mmHg LADs Lon.5 cm MV VTI: 55.60 cm Patient: KAROLYN SOSA Study Date: 10/28/2017 Page 1 of 2 09:09 AM LA Area: 28.9 cm2 Findings: Left Ventricle: Normal size left ventricle. Moderate to Severe concentric LV hypertrophy. Global hypercontractility of the left ventricle. The ejection fraction is estimated to be 75-80 %. Right Ventricle: Normal size right ventricle. Left Atrium: The left atrium is severely dilated. Right Atrium: The right atrium is normal in size. Mitral Valve: Trivial mitral valve regurgitation. There is moderate thickening of the mitral valve leaflets. Mild to moderate mitral stenosis. MV mean PG is 11mmHG.. Aortic Valve: Cor valve in place. AV max PG is 19mmHG. AV mean PG is 11mmHG. There appears to be small perivalvular leak visualized.. Tricuspid Valve: The tricuspid valve appears normal. The pulmonary artery pressure is normal. Pericardium: Trivial anterior pericardial effusion. (No Signature Object) Patient: KAROLYN SOSA Study Date: 10/28/2017 Page 2 of 2 09:09 AM [id number]
--- NOTE | 2017-10-28 10:28 | ECHO ---
[email or web address] [address] [address] Main: [phone] Fax: Transesophageal Echocardiography Name: KAROLYN SOSA MR#: [id number] Study Date: 10/27/2017 Study Time: 10:13 AM Date of : 1945 Age: 72 year(s) Height: ( ) Weight: ( ) BSA: Gender: Female Examination: FELIPE Indication: Image Quality: Contrast: Requested by: David Jackson Heart Rate: Rhythm: BP: / Procedure Staff Food Chemist: Elaine Pendleton [facility] Reading Physician: Melody Osborn MD Requesting Provider: David Jackson FELIPE Exam Details Conclusions: Normal size left ventricle. Moderate to Severe concentric LV hypertrophy. Normal global systolic LV function. There is moderate thickening of the mitral valve leaflets. Mild mitral valve regurgitation is present. Mild to moderate mitral stenosis.. Pre TAVR: 3.7m/s, 36/54mmHg mean/max PG; mild AR POST TAVR : 1.95 m/sec, 7/15mmHg, mild AI and estimated CHARLINE 1.4 cm2. Mild tricuspid regurgitation is present. Measurements: Chambers Valvular Assessment AV/MV Valvular Assessment TV/PV Normal Normal Normal Name Value Range Name Value Range Name Value Range LVOTd 2.1 cm 2.1 cm mm MV meanP mmHg ( - ) TR Vmax: 3.43 mm/s ( - ) MVA (Vmax): 1.0 m/s ( - ) TR PGmax: 47 mmHg ( - ) Additional Measurements: Valvular Assessment AV/MV Name Value MV VTI: 65.10 cm Patient: KAROLYN SOSA Study Date: 10/27/2017 Page 1 of 2 10:13 AM Findings: Left Ventricle: Normal size left ventricle. Moderate to Severe concentric LV hypertrophy. Normal global systolic LV function. Right Ventricle: Normal size right ventricle. Mitral Valve: There is moderate thickening of the mitral valve leaflets. Mild mitral valve regurgitation is present. Mild to moderate mitral stenosis.. Aortic Valve: Pre TAVR: 3.7m/s, 36/54mmHg mean/max PG; mild AR POST TAVR : 1.95 m/sec, 7/15mmHg, mild AI and estimated CHARLINE 1.4 cm2. Tricuspid Valve: Mild tricuspid regurgitation is present. Pericardium: Trivial pericardial effusion. l1n (No Signature Object) Patient: KAROLYN SOSA Study Date: 10/27/2017 Page 2 of 2 10:13 AM [id number]
--- NOTE | 2017-10-28 12:19 | ASMTCMCOM ---
CM Note CM Note Notes: Patient is POD #1 TAVR. She is doing well. Patient lives alone and has friends. She is currently open to [facility] and they will resume services upon discharge. PT/OT are recommending home with home care. Case Management will follow. Date Signed: 10/28/2017 12:19 PM Electronically Signed By:Gayatri Oneal RN
[2017-10-28] MEDS: MELATONIN 3 MG TAB PO SCH (20:08)
[2017-10-28] MEDS: METOPROLOL TARTRATE 25 MG TAB PO SCH (20:08)
[2017-10-28] MEDS: CIPROFLOXACIN 250 MG TAB PO SCH (20:10)
[2017-10-29] MEDS: ACETAMINOPHEN 325 MG TAB PO SCH ×5 (01:05→18:12)
[2017-10-29 05:36] LABS: PLATELET COUNT 133 10^3/uL (150-400)
[2017-10-29 05:44] LABS: INR 1.65 (0.83-1.16); PROTIME(PATIENT) 19.6 SEC (12.0-15.0)
[2017-10-29] MEDS: LEVOTHYROXINE 125 MCG TAB PO SCH (07:11)
[2017-10-29] MEDS ORDERED: FUROSEMIDE 20 MG/2 ML VIAL IVP ONE ×2 (07:15→14:00)
--- NOTE | 2017-10-29 07:20 | PDCARPN ---
Cardiology Progress Note Chief Complaint: SOB Assessment/Plan: Assessment: s/p TAVR Plan: 10/28/17 06:56 DOing well Transfer to floor check echo Hgb lower but stable check labs in AM 10/29/17 07:18 Doing well Hgb lower today (pt has baseline anemia)--will hold eliquis and transfuse 2 u PRBC check labs in AM Hope to d/c home in AM Subjective: doing well Reviewed/Discussed With: multidisciplinary team Time Spent With Patient: 25 min Objective: Vital Signs (8 Hrs) Temp Pulse Resp BP Pulse Ox 10/29/17 04:00 37.1 C 89 18 112/53 L 94 10/28/17 23:41 37.7 C 100 18 115/60 95 Intake/Output (24 Hrs) 10/28/17 10/29/17 10/30/17 05:59 05:59 05:59 Intake Total 830 1150 Output Total 0 Balance 830 1150 Intake: Oral (ml) 830 1150 Output: Urine (ml) 0 Toilet 0 Other: Weight 75.296 kg 77.8 kg Number of Voids Bedside Commode 1 Incontinence 2 Toilet 3 3 Result Diagrams: 10/29/17 05:23 10/29/17 05:23 - Physical Exam Constitutional: healthy appearing Eyes: PERRL Ears, Nose, Mouth, Throat: moist mucous membranes Cardiovascular: regular rate and rhythm Peripheral Pulses: 1+: femoral (R), femoral (L) Respiratory: clear to auscultate bilat Gastrointestinal: normoactive bowel sounds Genitourinary: no suprapubic tenderness Skin: no rashes Musculoskeletal: no muscular tenderness Neurologic: AAOx3 Psychiatric: cooperative ICD10 Worksheet Patient Problems: Problems Problem Status Onset Aortic stenosis Acute CKD (chronic kidney disease), stage III Acute Dehydration Acute Elevated troponin Acute Pyelonephritis Acute Staghorn renal calculus Acute Urinary tract infection Acute Weakness Acute Weakness Acute
[2017-10-29] MEDS: INSULIN REGULAR, HUMAN 100 UNIT/1 ML VIAL STANDARD SC SCH ×4 (09:41→21:02)
[2017-10-29] MEDS: METOPROLOL TARTRATE 25 MG TAB PO SCH ×2 (09:43→20:26)
[2017-10-29] MEDS: buPROPion SR 100 MG TAB PO SCH (09:43)
[2017-10-29] MEDS: ATORVASTATIN CALCIUM 20 MG TAB PO SCH (09:43)
[2017-10-29] MEDS: ARIPiprazole 10 MG TAB PO SCH (09:43)
[2017-10-29] MEDS: VALSARTAN 160 MG TAB PO SCH (09:44)
[2017-10-29] MEDS: OMEGA-3 FATTY ACIDS 1,000 MG CAP PO SCH ×2 (09:44→20:27)
[2017-10-29] MEDS: PIOGLITAZONE HCL 15 MG TAB PO SCH (09:44)
[2017-10-29] MEDS: NITROFURANTOIN MACROBID 100 MG CAP PO SCH (09:44)
[2017-10-29] MEDS: CIPROFLOXACIN 250 MG TAB PO SCH ×2 (11:24→20:26)
--- NOTE | 2017-10-29 15:12 | ASMTCMCOM ---
CM Note CM Note Notes: CM spoke w/ ISAIAS Ramirez and she is recommending SNF at this time. CM met w/ pt for dispo planning. Pt is not interested in HC. Pt would prefer to d/c with HC. CM to follow. Plan: [facility]; PT, OT, RN Date Signed: 10/29/2017 03:11 PM Electronically Signed By:YESI Oreilly
[2017-10-29] MEDS: metFORMIN HCL 500 MG TAB PO SCH (18:29)
[2017-10-29] MEDS: MELATONIN 3 MG TAB PO SCH (20:25)
[2017-10-30] MEDS: ACETAMINOPHEN 325 MG TAB PO SCH ×3 (01:06→12:28)
[2017-10-30 04:19] LABS: PLATELET COUNT 132 10^3/uL (150-400)
[2017-10-30 04:22] LABS: INR 1.25 (0.83-1.16); PROTIME(PATIENT) 15.9 SEC (12.0-15.0)
[2017-10-30] MEDS: LEVOTHYROXINE 125 MCG TAB PO SCH (06:09)
--- NOTE | 2017-10-30 07:03 | PDCARPN ---
Cardiology Progress Note Chief Complaint: SOB Assessment/Plan: Assessment: s/p TAVR Plan: 10/28/17 06:56 DOing well Transfer to floor check echo Hgb lower but stable check labs in AM 10/29/17 07:18 Doing well Hgb lower today (pt has baseline anemia)--will hold eliquis and transfuse 2 u PRBC check labs in AM Hope to d/c home in AM 10/30/17 06:58 Doing well d/c home today re-start eliquis Subjective: doing well Reviewed/Discussed With: multidisciplinary team Time Spent With Patient: 25 min Objective: Vital Signs (8 Hrs) Temp Pulse Resp BP Pulse Ox 10/30/17 04:54 36.8 C 80 16 121/61 H 92 10/29/17 23:31 36.6 C 80 16 136/67 H 92 Intake/Output (24 Hrs) 10/29/17 10/30/17 10/31/17 05:59 05:59 05:59 Intake Total 1150 1400 Output Total 100 Balance 1150 1300 Intake: Oral (ml) 1150 800 IV Intake (ml) 600 Output: Urine (ml) 100 Toilet 100 Other: Weight 77.8 kg Output Comment Incontinence soaked pad, chair, floor. Number of Voids Bedside Commode 1 Incontinence 2 1 Toilet 3 3 Number of Stools Toilet 1 Result Diagrams: 10/30/17 03:38 10/30/17 03:38 - Physical Exam Constitutional: healthy appearing Eyes: PERRL Ears, Nose, Mouth, Throat: moist mucous membranes Cardiovascular: regular rate and rhythm Peripheral Pulses: 1+: femoral (R), femoral (L) Respiratory: clear to auscultate bilat, no crackles Gastrointestinal: normoactive bowel sounds Genitourinary: no suprapubic tenderness Skin: no rashes Musculoskeletal: no muscular tenderness Neurologic: CN II-XII grossly intact Psychiatric: cooperative ICD10 Worksheet Patient Problems: Problems Problem Status Onset Aortic stenosis Acute CKD (chronic kidney disease), stage III Acute Dehydration Acute Elevated troponin Acute Pyelonephritis Acute Staghorn renal calculus Acute Urinary tract infection Acute Weakness Acute Weakness Acute
--- NOTE | 2017-10-30 07:31 | GDS ---
[f rep st] DISCHARGE SUMMARY DISCHARGE DIAGNOSIS: Aortic stenosis with transcatheter aortic valve replacement. HOSPITAL COURSE: Briefly, this is a 72-year-old female who is quite frail who underwent successful t ransfemoral TAVR placement on 10/27/2017 with Medtronic CoreValve Evolut PRO 29 mm valve. Patient di d very well postprocedure. The patient does have a history of chronic anemia with her baseline hemog lobin coming to the procedure at approximately 10, and the patient did drop down to 7.6 postprocedure . She was transfused 2 units of PRBCs yesterday. Her hemoglobin responded appropriately. It is now 10.5. She has done well postoperatively, ambulating in the halls without a problem. Her echocardio gram postprocedure shows normal ventricular function with normal TAVR with trivial paravalvular leak. Patient will be discharged home this morning with her home medications including Lopressor 12.5 b.i.d ., as well as restarted on her Eliquis at 5 mg p.o. b.i.d. as the patient does have a history of paro xysmal atrial fibrillation. The patient will follow up with us in the office in 1 week's time. If the patient should have persis tent anemia, we can discuss at a later date if the patient should be a candidate for possible Watchma n placement given her elevated CHADS2-VASc score as well as obviously issues with her hemoglobin coun t and being on blood-thinning medication. /[id number]/MODL
[2017-10-30 07:36] VITALS: RESP 17
[2017-10-30] MEDS: INSULIN REGULAR, HUMAN 100 UNIT/1 ML VIAL STANDARD SC SCH ×2 (08:33→12:28)
[2017-10-30] MEDS: ATORVASTATIN CALCIUM 20 MG TAB PO SCH (09:02)
[2017-10-30] MEDS: CIPROFLOXACIN 250 MG TAB PO SCH (09:02)
[2017-10-30] MEDS: METOPROLOL TARTRATE 25 MG TAB PO SCH (09:02)
[2017-10-30] MEDS: ARIPiprazole 10 MG TAB PO SCH (09:02)
[2017-10-30] MEDS: VALSARTAN 160 MG TAB PO SCH (09:02)
[2017-10-30] MEDS: PIOGLITAZONE HCL 15 MG TAB PO SCH (09:02)
[2017-10-30] MEDS: OMEGA-3 FATTY ACIDS 1,000 MG CAP PO SCH (09:02)
[2017-10-30] MEDS: metFORMIN HCL 500 MG TAB PO SCH (09:02)
[2017-10-30] MEDS: buPROPion SR 100 MG TAB PO SCH (09:02)
--- NOTE | 2017-10-30 12:12 | PDIAF ---
- Diagnosis Code Status: Full Code - Medication Management Discharge Medications: Medications to Continue on Transfer ARIPiprazole [Abilify 10 mg (*)] 10 mg PO DAILY 05/02/17 [Last Taken 10/09/17] Apixaban [Eliquis] 5 mg PO BID 05/02/17 [Last Taken 10/09/17] Atorvastatin Calcium [Lipitor 20 mg (*)] 20 mg PO DAILY 05/02/17 [Last Taken ] Herbals/Supplements -Info Only 1 ea PO DAILY 05/02/17 [Last Taken 10/09/17] Levothyroxine [Synthroid 125 mcg (*)] 125 mcg PO DAILY06 05/02/17 [Last Taken ] Pioglitazone HCl [Actos 15mg (*)] 15 mg PO DAILY 05/02/17 [Last Taken 10/09/17] Valsartan [Diovan] 320 mg PO DAILY 05/02/17 [Last Taken 10/09/17] buPROPion SR [Wellbutrin 100mg SR (*)] 100 mg PO DAILY 05/02/17 [Last Taken ] glipiZIDE XL [Glucotrol Xl 2.5 mg (*)] 2.5 mg PO DAILY 05/02/17 [Last Taken ] metFORMIN HCL [Glucophage 1000 mg] 1,000 mg PO BIDMEAL 05/02/17 [Last Taken 08:00] Melatonin [Melatonin 3 MG (*)] 3 mg PO HS 09/29/17 [Last Taken 10/09/17] [place]-3 Fatty Acids [Fish Oil 1000 mg (*)] 1,000 mg PO BID 09/29/17 [Last Taken 10/09/17] Nitrofurantoin Monohyd/M-Cryst [Macrobid 100 mg Capsule] 100 mg PO BID 10/09/17 [Last Taken 10/09/17 08:00] amLODIPine BESYLATE [Norvasc 10 mg (*)] 10 mg PO DAILY 10/09/17 [Last Taken ] Acetaminophen [Tylenol 325mg (*)] 650 mg PO Q6HRS tab 10/30/17 [Last Taken Unknown] Apixaban [Eliquis] 5 mg PO BID tab 10/30/17 [Last Taken Unknown] Ciprofloxacin [Cipro] 250 mg PO BID@ #7 tab 10/30/17 [Last Taken Unknown] Metoprolol Tartrate [Lopressor 25 mg (*)] 12.5 mg PO BID #60 tab 10/30/17 [Last Taken Unknown] Discharge Medications: Refer to the Discharge Home Medication list for PRN reason. - Orders Services needed: Home Care, Registered Nurse, Physical Therapy, Occupational Therapy Home Care Face to Face: I certify that this patient was under my care and that I had the required [id number] encounter meeting the encounter requirements on the discharge day. My findings support the fact that the patient is homebound as defined in Home Care Face to Face Continued: CMS Chapter 7 Medicare Benefits Manual 30.1.1 , The condition of the patient is such that there exists a normal inability to leave home and consequently, leaving home would require a considerable and taxing effort. Isolation Type: None Diet Recommendation: ADA 2200 consistent carb Diet Texture: Regular Texture Diet - Follow Up Care Current Providers and Referrals: David Jackson MD [Medical Doctor] - follow up as scheduled Mariam Dyer MD [Primary Care Provider] -
[2017-10-30 12:15] VITALS: BP 123/65; PULSE 65; TEMP 98.4; O2SAT 95
[2017-10-30] MEDS ORDERED: APIXABAN 5 MG TAB PO SCH (21:00)
--- NOTE | 2017-10-31 09:09 | ASDISCHSUM ---
Discharge Information Plan Status:Home with Home Health Medically Cleared to Leave:10/29/2017 Discharge Date:10/30/2017 01:35 PM CM D/C Disposition: ADT D/C Disposition:Home, Routine, Self-Care Projected Discharge Date:10/30/2017 11:00 AM Transportation at D/C: Discharge Delay Reason: Follow-Up Date:10/30/2017 11:00 AM Discharge Slot: Final Diagnosis: Placement Information Referral Type:*Home Health Care Services Referral ID:[id number] Provider Name:[facility] Address 1:[address] [address] Address 2: City:[place] Selection Factors: State:[place] Patient Contact Information Contact Name:CASA Relationship:Friend Address: City: [facility] Phone: [facility] Code: Email: Financial Information Financial Class:Medicare Primary Plan Desc:MEDICARE INPATIENT Primary Plan Number:[id number] Secondary Plan Desc:[employer] Secondary Plan Number:[id number] Assessment Information [facility] CM Progress Note CM Note CM Note Notes: Patient is POD #1 TAVR. She is doing well. Patient lives alone and has friends. She is currently open to [facility] and they will resume services upon discharge. PT/OT are recommending home with home care. Case Management will follow. Date Signed: 10/28/2017 12:19 PM Electronically Signed By:Gayatri Oneal RN [facility] CM Progress Note CM Note CM Note Notes: CM spoke w/ ISAIAS Ramirez and she is recommending SNF at this time. CM met w/ pt for dispo planning. Pt is not interested in HC. Pt would prefer to d/c with HC. CM to follow. Plan: [facility]; PT, OT, RN Date Signed: 10/29/2017 03:11 PM Electronically Signed By:YESI Oreilly Case Management Discharge Plan Note Case Management Discharge Discharge Order Complete? Answers: Yes Patient to Obtain Answers: Independently Medications Transportation Arranged Answers: Family/Friends EMTALA Complete Answers: No Case Management Transport Answers: Yes Form Complete Faxed Final Orders Answers: Yes Agency/Facility Transfer Answers: Yes Report Printed & Faxed to Receiving Agency Family Notified Answers: No Discharge Comments Notes: Pt is being discharged today. CM met w/ pt for dispo planning. Confirmed that pt will resume services w/ [facility]. CM provided Adriana RN w/ phone number to give report. CM requested that Dr. Jackson to put in transfer of care summary. CM completed IM. Pt reports that pt will have a friend pick her up. CM available for changes. Plan: [facility]; RN, PT, OT Date Signed: 10/30/2017 10:22 AM Electronically Signed By:YESI Oreilly Intervention Information Intervention Type:*IM-Signed Date of Service:10/30/2017 10:22 AM Patient Type:Inpatient Staff Member:YESI Castaneda Michelle Hours: Discipline: Severity: Comment:
== END 2017-10-30 13:35 | disposition home or self-care (01) | DRG 267 ==
LOC: FCATH 07:34 → F2N 11:14 → F2W 10-28 09:52
PROVIDERS: ADMIT Internal Medicine Cardiovascular Disease; ATTEND Internal Medicine Cardiovascular Disease
PROC: 02RF38Z Replacement of Aortic Valve with Zooplastic Tissue, Percutaneous Approach (ICD-10-PCS; principal; 2017-10-27)
PROC: 30233N1 Transfusion of Nonautologous Red Blood Cells into Peripheral Vein, Percutaneous Approach (ICD-10-PCS; 2017-10-29)
DX: I35.8 Other nonrheumatic aortic valve disorders (principal); Z00.6 Encounter for examination for normal comparison and control in clinical research program; I48.0 Paroxysmal atrial fibrillation; I10 Essential (primary) hypertension; E11.9 Type 2 diabetes mellitus without complications; E66.9 Obesity, unspecified; Z68.39 Body mass index [BMI] 39.0-39.9, adult; G47.33 Obstructive sleep apnea (adult) (pediatric); Z79.01 Long term (current) use of anticoagulants; D64.9 Anemia, unspecified
CPT/HCPCS: 92526-GN; 92610-GN; 97116-GP; 97161-GP; 97166-GO; 97535-GO; C1760; C1769; C1894; G8978-GP-CJ; G8979-GP-CI; G8987-GO-CJ; G8988-GO-CI; G8989-GO-CI; G8996-GN-CH; G8997-GN-CH; G8998-GN-CH; J0690; J1644; J1815; J1940; J2370; J2704; J2720; J3010; P9016; Q9967

== ENCOUNTER 2018-01-29 08:18 | Day surgery (SDC) | payer OTHER ==
[2018-01-29] MEDS ORDERED: LR 1,000 ML IV ONE (08:41)
--- NOTE | 2018-01-29 09:10 | PDGENHP ---
History & Physical Chief Complaint: Anemia History of Present Illness: Anemia Pertinent Past, Social, Family History: , s/p TAVR, afib on eliquis Relevant Physical Exam: Lungs clear. COR Normal S 1 S 2 murmer
--- NOTE | 2018-01-29 09:36 | PDANEPAE ---
ANE History of Present Illness 72 year old female for EGD and colonoscopy. ANE Past Medical History - Cardiovascular History Hx Hypertension: Yes Hx Arrhythmias: Yes Hx Chest Pain: No Hx Coronary Artery / Peripheral Vascular Disease: No Hx CHF / Valvular Disease: Yes Hx Palpitations: No Cardiovascular History Comment: A FIB - Pulmonary History Hx COPD: No Hx Asthma/Reactive Airway Disease: Yes Hx Recent Upper Respiratory Infection: No Hx Oxygen in Use at Home: Yes Hx Sleep Apnea: No Sleep Apnea Screening Result - Last Documented: Positive Pulmonary History Comment: CPAP, ALLERGIES TRIGGER ASTHMA - Neurologic History Hx Cerebrovascular Accident: No Hx Seizures: No Hx Dementia: No - Endocrine History Hx Diabetes: Yes Hypothyroid: No Hyperthyroid: No Endocrine History Comment: TYPE2 - Renal History Hx Renal Disorders: No - Liver History Hx Hepatic Disorders: No - Neurological & Psychiatric Hx Hx Neurological and Psychiatric Disorders: Yes Neurological / Psychiatric History Comment: depression - Cancer History Hx Cancer: No - Congenital Disorder History Hx Congenital Disorders: No - GI History Hx Gastrointestinal Disorders: No - Other Health History Other Health History: bruises on L. arm, weak legs. anemia - Chronic Pain History Chronic Pain: No - Surgical History Prior Surgeries: Nephrostomy tubes 10/2016, pins in left leg. appy. TAVR 11/09 ANE Review of Systems Review of Systems: - Exercise capacity Exercise capacity: <4 METS METS (RN): 2 METS ANE Patient History - Allergies Allergies/Adverse Reactions: No Known Allergies Allergy (Verified 01/20/18 14:45) - Home Medications Home medications: home medication list seen and reviewed Home Medications: RX: ARIPiprazole [Abilify 10 mg (*)] 05/02/17 [Last Taken 01/28/18] RX: Apixaban [Eliquis] 05/02/17 [Last Taken 10/09/17] RX: Atorvastatin Calcium [Lipitor 20 mg (*)] 05/02/17 [Last Taken 10/09/17] RX: Herbals/Supplements -Info Only 05/02/17 [Last Taken 01/28/18] RX: Levothyroxine [Synthroid 125 mcg (*)] 05/02/17 [Last Taken 01/28/18] RX: Pioglitazone HCl [Actos 15mg (*)] 05/02/17 [Last Taken 01/28/18] RX: Valsartan [Diovan] 05/02/17 [Last Taken 01/28/18] RX: buPROPion SR [Wellbutrin 100mg SR (*)] 05/02/17 [Last Taken 01/29/18] RX: glipiZIDE XL [Glucotrol Xl 2.5 mg (*)] 05/02/17 [Last Taken 01/29/18] RX: metFORMIN HCL [Glucophage 1000 mg] 05/02/17 [Last Taken 01/28/18] RX: Melatonin [Melatonin 3 MG (*)] 09/29/17 [Last Taken 01/27/18] RX: [place]-3 Fatty Acids [Fish Oil 1000 mg (*)] 09/29/17 [Last Taken 01/28/18] RX: amLODIPine BESYLATE [Norvasc 10 mg (*)] 10/09/17 [Last Taken 01/28/18] Carvedilol 01/20/18 [Last Taken Unknown] Chlorthalidone 01/20/18 [Last Taken 01/28/18] Potassium Chloride 01/20/18 [Last Taken 01/28/18] RX: Acetaminophen [Tylenol 325mg (*)] 01/20/18 [Last Taken Unknown] RX: Apixaban [Eliquis] 01/20/18 [Last Taken 01/27/18] - NPO status NPO Since - Liquids (Date): 01/29/18 NPO Since - Liquids (Time): 07:00 NPO Since - Solids (Date): 01/28/18 NPO Since - Solids (Time): 11:00 - Anes Hx Anes Hx: no prior problems - Smoking Hx Smoking Status: Former smoker Marijuana use: No - Alcohol Use Alcohol Use: Rarely - Family Anes Hx Family Anes Hx: neg - N/A Family Hx Anesthesia Complications: none ANE Labs/Vital Signs - Vital Signs Vital Signs: reviewed preoperatively; see RN documention for details Blood Pressure: 126/73 Heart Rate: 71 Respiratory Rate: 16 O2 Sat (%): 93 Height: 170.18 cm Weight: 70.307 kg ANE Physical Exam - Airway Neck exam: FROM Mallampati Score: Class 2 Mouth exam: normal dental/mouth exam - Pulmonary Pulmonary: no respiratory distress - Cardiovascular Cardiovascular: regular rate and rhythym - ASA Status ASA Status: III ANE Anesthesia Plan Anesthesia Plan: GA with mask (Patient with recent TAVR - 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 Patient confirms she took the oral antibiotic this morning at home.) Total IV Anesthesia: Yes
[2018-01-29] MEDS ORDERED: PROPOFOL/EMULSION 500 MG/50 ML BOTTLE IV ONE (09:58)
[2018-01-29] MEDS ORDERED: fentaNYL 100 MCG/2 ML INJ IVP PRN (10:11)
[2018-01-29] MEDS ORDERED: LR 500 ML IV PRN (10:11)
[2018-01-29] MEDS ORDERED: NALOXONE HCL 0.4 MG/ML INJ IVP PRN (10:11)
[2018-01-29] MEDS ORDERED: ONDANSETRON 4 MG/2 ML VIAL IVP PRN (10:11)
--- NOTE | 2018-01-29 10:12 | GIREPORT ---
[facility] Surgical Services - Endoscopy Department Patient Name: Kayce Pedersen Procedure Date: 01/29/2018 9:47 AM Patient Type: Outpatient Attending MD/ ER Physician: Jesse Davalos MD Procedure: Upper GI endoscopy Indications: Iron deficiency anemia Providers: Jesse Davalos MD Medicines: Propofol per Anesthesia Complications: No immediate complications. Description of Procedure: After obtaining informed consent, the endoscope was passed under direct vision. Throughout the procedure, the patient's blood pressure, pulse, and oxygen saturations were monitored continuously. The Endoscope was intro duced through the mouth, and advanced to the second part of duodenum. The [facility] er GI endoscopy was accomplished without difficulty. The patient tolerated th e procedure well. Findings: The examined esophagus was normal. Diffuse mild inflammation characterized by congestion (edema), erosions and erythema was found in the gastric antrum. Biopsies were taken with a co ld forceps for histology. The examined duodenum was normal. Biopsies for histology were taken wit h a cold forceps for evaluation of celiac disease. Estimated Blood Loss: Estimated blood loss: none. Post Op Diagnosis: - Normal esophagus. - Chronic gastritis. Biopsied. - Normal examined duodenum. Biopsied. Recommendation: - Patient has a contact number available for emergencies. The signs and symptoms of potential delayed complications were discussed with the pat ient. Return to normal activities tomorrow. Written discharge instructions we re provided to the patient. - Await pathology results. - Perform a colonoscopy today. - Thank you for allowing me to participate in the care of your patient. Attending Participation: I personally performed the entire procedure. Jesse Davalos MD Jesse Davalos MD 01/29/2018 10:12:11 AM This report has been signed electronicallyStjerry Davalos MD Number of Addenda: 0 Note Initiated On: 01/29/2018 9:47 AM [email or web address]
--- NOTE | 2018-01-29 10:39 | GIREPORT ---
[facility] Surgical Services - Endoscopy Department Patient Name: Kayce Pedersen Procedure Date: 01/29/2018 9:47 AM Patient Type: Outpatient Attending MD/ ER Physician: Jesse Davalos MD Procedure: Colonoscopy Indications: Iron deficiency anemia Providers: Jesse Davalos MD Medicines: Propofol per Anesthesia Complications: No immediate complications. Description of Procedure: After obtaining informed consent, the scope was passed under direct vis ion. Throughout the procedure, the patient's blood pressure, pulse, and oxyg en saturations were monitored continuously. The Colonoscope with irrigatio n channel was introduced through the anus and advanced to the cecum, identified by appendiceal orifice and ileocecal valve. The colonoscopy was somewhat difficult due to multiple diverticula in the colon. The patien t tolerated the procedure well. The quality of the bowel preparation was good. The ileocecal valve, appendiceal orifice, and rectum were photographed. Findings: Hemorrhoids were found on perianal exam. Multiple small and large-mouthed diverticula were found in the sigmoid colon and descending colon. Three sessile polyps were found in the proximal ascending colon. The po lyps were 4 to 6 mm in size. These polyps were removed with a cold biopsy forceps. Resection and retrieval were complete. The exam was otherwise without abnormality on direct and retroflexion v iews. Estimated Blood Loss: Estimated blood loss: none. Post Op Diagnosis: - Hemorrhoids found on perianal exam. - Diverticulosis in the sigmoid colon and in the descending colon. - Three 4 to 6 mm polyps in the proximal ascending colon, removed with a cold biopsy forceps. Resected and retrieved. - The examination was otherwise normal on direct and retroflexion views . Recommendation: - Patient has a contact number available for emergencies. The signs and symptoms of potential delayed complications were discussed with the pat ient. Return to normal activities tomorrow. Written discharge instructions we re provided to the patient. - High fiber diet. - Continue present medications. - Resume Eliquis (apixaban) at prior dose tomorrow. Refer to managing physician for further adjustment of therapy. - Await pathology results. - No repeat colonoscopy due to age. - Thank you for allowing me to participate in the care of your patient. Attending Participation: I personally performed the entire procedure. Jesse Davalos MD Jesse Davalos MD 01/29/2018 10:38:35 AM This report has been signed electronicallyJesse Davalos MD Number of Addenda: 0 Note Initiated On: 01/29/2018 9:47 AM Total Procedure Duration Time 0 hours 19 minutes 16 seconds [email or web address]
[2018-01-29 13:09] VITALS: BP 157/80
--- NOTE | 2018-01-29 14:42 | POSTANESTH ---
Post Anesthetic Evaluation Cardiovascular Status: Normal, Stable, Similar to Pre-Op Cond Respiratory Status: Normal, Stable, Similar to Pre-op Cond. Level of Consciousness/Mental Status: Can Participate in Eval, Alert and Oriented Pain Control: Adequate, Prn Tx Ordered Nausea/Vomiting Control: Adequate, Prn Tx Ordered Complications Possibly Related to Anesthesia: None Noted
== END 2018-01-29 12:28 | disposition home or self-care (01) ==
LOC: FSGY 08:18
PROVIDERS: ATTEND Internal Medicine Gastroenterology
PROC: 0DBK8ZX Excision of Ascending Colon, Via Natural or Artificial Opening Endoscopic, Diagnostic (ICD-10-PCS; principal; 2018-01-29 09:45)
PROC: 0DB68ZX Excision of Stomach, Via Natural or Artificial Opening Endoscopic, Diagnostic (ICD-10-PCS; principal; 2018-01-29 09:45)
PROC: 0DB98ZX Excision of Duodenum, Via Natural or Artificial Opening Endoscopic, Diagnostic (ICD-10-PCS; principal; 2018-01-29 09:45)
DX: D12.2 Benign neoplasm of ascending colon (principal); K57.30 Diverticulosis of large intestine without perforation or abscess without bleeding; K29.50 Unspecified chronic gastritis without bleeding; K64.4 Residual hemorrhoidal skin tags; D50.9 Iron deficiency anemia, unspecified; I48.91 Unspecified atrial fibrillation; F32.9 Major depressive disorder, single episode, unspecified; J45.909 Unspecified asthma, uncomplicated; E11.9 Type 2 diabetes mellitus without complications; Z87.891 Personal history of nicotine dependence
CPT/HCPCS: J2704

== ENCOUNTER → 2018-05-12 | Outpatient (CLI) | payer OTHER ==
[~2018-05-12] MED LIST changes: +IOPAMIDOL (ISOVUE-300) 150 ML BTL ONE; -IOPAMIDOL (ISOVUE-370) 150 ML BTL IV ONE
== END ==
LOC: FIMAGING 14:54
PROVIDERS: ATTEND Specialist
DX: N20.0 Calculus of kidney (principal); N28.89 Other specified disorders of kidney and ureter; K57.30 Diverticulosis of large intestine without perforation or abscess without bleeding
CPT/HCPCS: 74178; Q9967; 82565-PO

== ENCOUNTER 2018-05-21 09:01 | Day surgery (SDC) | payer OTHER ==
[2018-05-21] MEDS ORDERED: LIDOCAINE 1% 2 ML INJ ID PRN (09:19)
[2018-05-21] MEDS ORDERED: LR 1,000 ML IV ONE (09:19)
--- NOTE | 2018-05-21 10:24 | PDANEPAE ---
ANE History of Present Illness 73 yo for ureteroscopy stone removal ANE Past Medical History - Cardiovascular History Hx Hypertension: Yes Hx Arrhythmias: Yes Hx Chest Pain: No Hx Coronary Artery / Peripheral Vascular Disease: No Hx CHF / Valvular Disease: Yes Hx Palpitations: No Cardiovascular History Comment: afib. TAVR 10/2017. hyperlipidemia. followed by [facility] - Pulmonary History Hx COPD: No Hx Asthma/Reactive Airway Disease: Yes Hx Recent Upper Respiratory Infection: No Hx Oxygen in Use at Home: Yes O2 in Use at Home (L/minute): 2l with cpap Hx Sleep Apnea: Yes Sleep Apnea Screening Result - Last Documented: Positive Pulmonary History Comment: hernan positive- instructed pt to bring cpap. pulm htn. nocturnal hypoxia - Neurologic History Hx Cerebrovascular Accident: No Hx Seizures: No Hx Dementia: No - Endocrine History Hx Diabetes: Yes Endocrine History Comment: type 2 - Renal History Hx Renal Disorders: Yes Renal History Comment: CKD stg 3. hx of kidney stones. hx of hematuria - Liver History Hx Hepatic Disorders: No - Neurological & Psychiatric Hx Hx Neurological and Psychiatric Disorders: Yes Neurological / Psychiatric History Comment: depression - Cancer History Hx Cancer: No - Congenital Disorder History Hx Congenital Disorders: No - GI History Hx Gastrointestinal Disorders: No - Other Health History Other Health History: bruises on L. arm, weak legs. anemia - Chronic Pain History Chronic Pain: No - Surgical History Prior Surgeries: 10/27/17 TAVR with Renetta. 11/13/16 right renal nephrostomy tube with Mao. 10/30/16 right perc neph tube with Mao. appy ANE Review of Systems Review of Systems: - Exercise capacity METS (RN): 2 METS ANE Patient History - Allergies Allergies/Adverse Reactions: No Known Allergies Allergy (Verified 05/21/18 10:00) - Home Medications Home Medications: ARIPiprazole [Abilify 10 mg (*)] 05/02/17 [Last Taken 05/21/18] Atorvastatin Calcium [Lipitor 20 mg (*)] 05/02/17 [Last Taken 05/21/18] Herbals/Supplements -Info Only 05/02/17 [Last Taken 05/20/18] Levothyroxine [Synthroid 125 mcg (*)] 05/02/17 [Last Taken 05/21/18] Pioglitazone HCl [Actos 15mg (*)] 05/02/17 [Last Taken 05/20/18] buPROPion SR [Wellbutrin 100mg SR (*)] 05/02/17 [Last Taken 05/21/18] glipiZIDE XL [Glucotrol Xl 2.5 mg (*)] 05/02/17 [Last Taken 05/20/18] metFORMIN HCL [Glucophage 1000 mg] 05/02/17 [Last Taken 05/20/18] amLODIPine BESYLATE [Norvasc 10 mg (*)] 10/09/17 [Last Taken 05/20/18] Apixaban [Eliquis] 01/20/18 [Last Taken 05/19/18] Carvedilol 01/20/18 [Last Taken 05/20/18] Losartan Potassium 05/20/18 [Last Taken 05/21/18] Metoprolol Tartrate 05/20/18 [Last Taken 05/21/18] - NPO status NPO Since - Liquids (Date): 05/20/18 NPO Since - Liquids (Time): 21:00 NPO Since - Solids (Date): 05/20/18 NPO Since - Solids (Time): 21:00 - Smoking Hx Smoking Status: Former smoker - Family Anes Hx Family Hx Anesthesia Complications: none ANE Labs/Vital Signs - Vital Signs Blood Pressure: 145/75 Heart Rate: 58 Respiratory Rate: 16 O2 Sat (%): 94 Height: 5 ft 7 in Weight: 68.946 kg ANE Physical Exam - Airway Mallampati Score: Class 2 Mouth exam: normal dental/mouth exam - Pulmonary Pulmonary: no respiratory distress - Cardiovascular Cardiovascular: regular rate and rhythym - ASA Status ASA Status: III ANE Anesthesia Plan Anesthesia Plan: GA w LMA
[2018-05-21] MEDS ORDERED: IOPAMIDOL (ISOVUE-M 300) 15 ML VIAL ONE (10:25)
[2018-05-21] MEDS ORDERED: LIDOCAINE 2% JELLY 20 ML (UROJECT) ONE (10:25)
[2018-05-21] MEDS ORDERED: fentaNYL 100 MCG/2 ML INJ ONE (10:37)
[2018-05-21] MEDS ORDERED: PROPOFOL/EMULSION 500 MG/50 ML BOTTLE IV ONE (10:37)
--- NOTE | 2018-05-21 10:41 | PDHPUP ---
History & Physical Update H&P update statement: This history and physical update is based on an assessment of the patient which was completed after admission or registration (within 24 hours), but prior to the surgery/procedure. H&P update: no change in patient's condition since H&P completed
[2018-05-21] MEDS ORDERED: ONDANSETRON 4 MG/2 ML VIAL ONE (10:42)
[2018-05-21] MEDS ORDERED: DEXAMETHASONE 4 MG/ML VIAL ONE (10:42)
[2018-05-21] MEDS ORDERED: ONDANSETRON 4 MG/2 ML VIAL IVP PRN (11:51)
[2018-05-21] MEDS ORDERED: fentaNYL 100 MCG/2 ML INJ IVP PRN (11:51)
[2018-05-21] MEDS ORDERED: NALOXONE HCL 0.4 MG/ML INJ IVP PRN (11:51)
--- NOTE | 2018-05-21 11:52 | POSTANESTH ---
Post Anesthetic Evaluation Cardiovascular Status: Normal, Stable Respiratory Status: Tx Decrease in SpO2 Level of Consciousness/Mental Status: Can Participate in Eval Pain Control: Adequate, Prn Tx Ordered Nausea/Vomiting Control: Adequate, Prn Tx Ordered Complications Possibly Related to Anesthesia: None Noted
--- NOTE | 2018-05-21 11:53 | POSTOPPROG ---
Post Op Note Date of Operation: 05/21/18 Surgeon: Jennifer Mccain (# [id number]) Anesthesia: LMA Pre-op Diagnosis: Right nephroureterolithiasis Post-op Diagnosis: Right nephrolithiasis Procedure: Cysto, Right RGP, ureterorenoscopy w/ laser litho, stent placement Findings: See op note Inf/Abcess present in the surg proc area at time of surgery?: No EBL: Minimal Complications: None Drains: Other (4.7 Fr. x 24 cm right ureteral stent) Specimen(s): None
[2018-05-21] MEDS ORDERED: PHENAZOPYRIDINE HCL 200 MG TAB PO SCH (12:30)
[2018-05-21] MEDS ORDERED: PHENAZOPYRIDINE HCL 200 MG TAB ONE (13:22)
[2018-05-21 16:17] VITALS: BP 150/70
--- NOTE | 2018-05-21 17:24 | GOP ---
DATE OF OPERATION: 05/21/2018 SURGEON: Jennifer Mccain MD ANESTHESIA: Laryngeal mask. PREOPERATIVE DIAGNOSIS: Right nephroureterolithiasis. POSTOPERATIVE DIAGNOSIS: Right nephrolithiasis. PROCEDURE PERFORMED: 1. Cystourethroscopy, right retrograde pyelography. 2. Right ureteroscopy and ureteral renoscopy with holmium laser calculus lithotripsy and manipulation. 3. Right ureteral stent placement (4.7-Dominican by 24 cm). FINDINGS: 1. No visible right ureteral calculi. 2. Multiple generally very small right renal calculi, addressed as mentioned in the body of the operative report. SPECIMENS: None. ESTIMATED BLOOD LOSS: Minimal. INDICATIONS: This woman was noted on recent CT scan to have multiple small distal right ureteral calculi, as well as multiple right renal calculi. She has had recent gross hematuria that has been presumed to be secondary to her stone disease. She presents for operative management of her stone disease at this time. The indications for the procedures as well as potential risks and complications were discussed with the patient preoperatively. She appeared to understand, her questions were answered, and she wished to proceed. Written informed surgical consent was thereafter obtained. DESCRIPTION OF PROCEDURE: The patient was brought to the operating room and administered laryngeal mask anesthesia. She was carefully placed in the dorsal lithotomy position on the cystoscopic table. The genital area was sterilely prepped with Betadine scrub and paint, then draped in usual sterile fashion. Cystoscopy was performed with a 30-degree lens through a 22-Dominican sheath. Urethra and bladder were unremarkable. Ureteral orifices were normal in regards to shape and position along the trigone. A 5-Dominican open-ended ureteral catheter was used to perform retrograde pyelography on the right side. This revealed no obvious filling defects within the ureter nor evidence of hydroureter. Within the kidney, there appeared to be some filling defects within the lower pole, consistent with the calculi seen on preoperative imaging. I then passed an 0.035 inch hydrophilic guidewire up the right ureter and advanced it until it was seen within the renal collecting system fluoroscopically. A 4 cm balloon was used to dilate the distal ureter by maintaining a pressure of 16 atmospheres for about 4 minutes. The balloon dilator and cystoscope were then removed while keeping the guidewire in place. Semi-rigid ureteroscopy was initially performed. The ureteroscope was advanced to the ureteropelvic junction and no calculi were seen within the ureter. I decided to proceed with flexible ureterorenoscopy to evaluate and potentially treat her right renal stone burden. A 0.035 inch Amplatz superstiff guidewire was advanced through the ureteroscope and into the renal collecting system as noted fluoroscopically. The ureteroscope was removed, while keeping both guidewires in place. Under fluoroscopic guidance, a 35 cm hydrophilic ureteral access sheath was advanced over the Amplatz guidewire and positioned at the ureteropelvic junction. The inner obturator and associated guidewire were removed, thereby keeping the outer portion of the access sheath and secondary guidewire in place. Flexible ureterorenoscopy was performed through the ureteral access sheath. Multiple small calculi were seen in a lower pole calyx. In general, none of the stones appeared to be larger than 2-3 mm. There was possibly 1 or 2 of these calculi that were up to 4 or 5 mm in diameter. The appearance of these multiple small calculi was reminiscent to what was noted on patient's prior percutaneous nephrostolithotomy a couple years ago. I used a 200 micron holmium laser fiber to fragment the largest calculi that were present. The remainder of the calculi were then flushed out of the kidney as much as possible with irrigation through the flexible ureteroscope. The ureteroscope and ureteral access sheath were then removed in tandem. The cystoscope was back-loaded over the guidewire and a 4.7-Dominican by 24 cm hydrophilic ureteral stent advanced over the guidewire until it was properly positioned as seen fluoroscopically in the kidney and cystoscopically in the bladder. The bladder was then drained until all return which was clear. The instruments were removed and 20 cc of 2% lidocaine injected transurethrally for postoperative analgesic purposes. The patient was then awakened, transferred to her bed, then taken to the recovery room. She tolerated the procedure well overall. COMPLICATIONS: None. DISPOSITION: She was transferred to the recovery room in stable condition and will be instructed to return to the office in 2-3 weeks for ureteral stent removal. /[id number]/MODL MTDD
== END 2018-05-21 16:30 | disposition home or self-care (01) ==
LOC: FSGY 09:01
PROVIDERS: ATTEND Specialist
PROC: 0T9380Z Drainage of Right Kidney Pelvis with Drainage Device, Via Natural or Artificial Opening Endoscopic (ICD-10-PCS; principal; 2018-05-21 10:30)
PROC: 0TF38ZZ Fragmentation in Right Kidney Pelvis, Via Natural or Artificial Opening Endoscopic (ICD-10-PCS; principal; 2018-05-21 10:30)
DX: N20.0 Calculus of kidney (principal); Z87.440 Personal history of urinary (tract) infections; Z79.01 Long term (current) use of anticoagulants; E11.9 Type 2 diabetes mellitus without complications; J45.909 Unspecified asthma, uncomplicated; F32.9 Major depressive disorder, single episode, unspecified; E03.9 Hypothyroidism, unspecified
CPT/HCPCS: 52356; 76001; C1726; C1758; C1769; C1894; C2625; J0696; J1100; J2405; J2704; J3010; Q9967

== ENCOUNTER → 2018-06-10 | Outpatient (CLI) | payer OTHER | LOC: BHFA 14:00 | PROVIDERS: ATTEND Internal Medicine Cardiovascular Disease | DX: I35.9 Nonrheumatic aortic valve disorder, unspecified (principal) ==

== ENCOUNTER → 2018-10-28 | Outpatient (CLI) | payer OTHER | LOC: BHFA 14:00 | PROVIDERS: ATTEND Internal Medicine Cardiovascular Disease | DX: I38 Endocarditis, valve unspecified (principal) ==

== ENCOUNTER 2018-12-12 06:23 | Inpatient (IN) | payer OTHER ==
[2018-12-12 07:00] LABS: PLATELET COUNT 243 10^3/uL (150-400)
[2018-12-12 07:08] LABS: INR 1.14 (0.83-1.16); PROTIME(PATIENT) 14.1 SEC (12.0-15.0)
--- NOTE | 2018-12-12 07:34 | EDPHY ---
H & P Stated Complaint: mech fall from toilet. R hip R knee pain. non-ambulatory. + thinners Time Seen by Provider: 12/12/18 07:24 HPI/ROS: CHIEF COMPLAINT: Right hip pain HISTORY OF PRESENT ILLNESS: 73-year-old female s/p AVR on Eliquis presents with right hip pain. Yesterday evening she was walking in the dark and probably tripped and fell landing on her right knee. Unable to get off floor. She called EMS and they assisted her in getting up off the floor. She had mild rt hip and knee pain at that time. She woke up early this morning to go to the bathroom. She was able to ambulate, but unable to get off the toilet. She called EMS again because of inability to bear weight on the right leg d/t severe pain. She did not fall a 2nd time. She did not hit her head; no headache or neck pain. No recent illness. Last oral intake was 7:30 p.m. yesterday evening. Last dose of Eliquis was yesterday evening. REVIEW OF SYSTEMS: complete 10 point ROS reviewed and is negative except for the noted elements in the HPI - Personal History Current Tetanus/Diphtheria Vaccine: Unsure Current Tetanus Diphtheria and Acellular Pertussis (TDAP): Unsure - Medical/Surgical History Hx Asthma: No Hx Chronic Respiratory Disease: No Hx Diabetes: Yes Hx Cardiac Disease: No Hx Renal Disease: No Hx Cirrhosis: No Hx Alcoholism: No Hx HIV/AIDS: No Hx Splenectomy or Spleen Trauma: No Other PMH: Diabetes 2, kidney stone, paroxsmal a fib, VIRGIE, wears cpap, htn, hl - Family History Significant Family History: No pertinent family hx - Social History Smoking Status: Former smoker Alcohol Use: Sober Drug Use: None Additional Social History: Lives alone in own home - Physical Exam Exam: General Appearance: Alert, pleasant Eyes: Pupils equal and round, no conjunctival pallor or injection ENT, Mouth: Mucous membranes moist Neck: Normal inspection, nontender, range of motion without pain Respiratory: No chest wall tenderness, Lungs are clear to auscultation Cardiovascular: Regular rate and rhythm Gastrointestinal: Abdomen is soft and nontender Neurological: A&O, nonfocal exam Skin: Warm and dry Extremities: Right hip-tenderness lateral aspect of right hip, contusion right knee, leg externally rotated and shortened Psychiatric: Mood and affect normal Constitutional: Initial Vital Signs Temperature (C) 36.7 C 12/12/18 06:28 Heart Rate 89 12/12/18 06:28 Respiratory Rate 18 12/12/18 06:28 Blood Pressure 142/70 H 12/12/18 06:28 O2 Sat (%) 93 12/12/18 06:28 O2 Delivery Mode Room Air Allergies/Adverse Reactions: No Known Allergies Allergy (Verified 12/12/18 06:25) Home Medications: Medication Instructions Recorded ARIPiprazole [Abilify 10 mg (*)] 05/02/17 Atorvastatin Calcium [Lipitor 20 05/02/17 mg (*)] Herbals/Supplements -Info Only 05/02/17 Levothyroxine [Synthroid 125 mcg 05/02/17 (*)] buPROPion SR [Wellbutrin 100mg SR 05/02/17 (*)] metFORMIN HCL [Glucophage 1000 mg] 05/02/17 amLODIPine BESYLATE [Norvasc 10 mg 10/09/17 (*)] Apixaban [Eliquis] 01/20/18 Losartan Potassium 05/20/18 Metoprolol Tartrate 05/20/18 Medical Decision Making - Diagnostics EKG Interpretation: EKG interpreted by me reveals probable sinus rhythm, LAFB, LVH. Interpretation : Abnormal EKG Imaging Results: Imaging Impressions Hip X-Ray 12/12/18 06:26 Impression: Transverse displaced right femoral neck fracture. Knee X-Ray 12/12/18 06:26 Impression: Tricompartment right knee osteoarthritis without acute fracture identified. X-ray reveals a right femoral neck fracture. Imaging: I viewed and interpreted images myself ED Course/Re-evaluation: This patient presents with right hip pain secondary to a mechanical fall. X- ray reveals a right femoral neck fracture. Patient declines pain medications. No evidence of other injuries. The hospitalist service was consulted for admission. Ortho was consulted. Dr. Wesley will see pt in hospital. Differential Diagnosis: Differential diagnosis includes though it is not limited to fracture, intracranial hemorrhage, pneumothorax, hemothorax, intra-abdominal hemorrhage. - Data Points Laboratory Results: Laboratory Results 12/12/18 06:30 12/12/18 06:30 12/12/18 12/12/18 12/12/18 06:30 06:30 06:30 WBC 14.19 10^3/uL H 10^3/uL (3.80-9.50) RBC 3.98 10^6/uL L 10^6/uL (4.18-5.33) Hgb 12.3 g/dL L g/dL (12.6-16.3) Hct 38.5 % % (38.0-47.0) MCV 96.7 fL fL (81.5-99.8) MCH 30.9 pg pg (27.9-34.1) MCHC 31.9 g/dL L g/dL (32.4-36.7) RDW 13.8 % % (11.5-15.2) Plt Count 243 10^3/uL 10^3/uL (150-400) MPV 11.1 fL fL (8.7-11.7) Neut % (Auto) 69.2 % % (39.3-74.2) Lymph % (Auto) 24.1 % % (15.0-45.0) [place] % (Auto) 4.8 % % (4.5-13.0) Eos % (Auto) 0.6 % % (0.6-7.6) Baso % (Auto) 0.7 % % (0.3-1.7) Nucleat RBC Rel Count 0.0 % % (0.0-0.2) Absolute Neuts (auto) 9.83 10^3/uL H 10^3/uL (1.70-6.50) Absolute Lymphs (auto) 3.42 10^3/uL H 10^3/uL (1.00-3.00) Absolute Monos (auto) 0.68 10^3/uL 10^3/uL (0.30-0.80) Absolute Eos (auto) 0.08 10^3/uL 10^3/uL (0.03-0.40) Absolute Basos (auto) 0.10 10^3/uL 10^3/uL (0.02-0.10) Absolute Nucleated RBC 0.00 10^3/uL 10^3/uL (0-0.01) Immature Gran % 0.6 % % (0.0-1.1) Immature Gran # 0.08 10^3/uL 10^3/uL (0.00-0.10) PT 14.1 SEC SEC (12.0-15.0) INR 1.14 (0.83-1.16) APTT 25.1 SEC SEC (23.0-38.0) Sodium 140 mEq/L mEq/L (135-145) Potassium 4.4 mEq/L mEq/L (3.5-5.2) Chloride 103 mEq/L mEq/L (97-110) Carbon Dioxide 17 mEq/l L mEq/l (22-31) Anion Gap 20 mEq/L H mEq/L (6-14) BUN 31 mg/dL H mg/dL (7-23) Creatinine 1.1 mg/dL H mg/dL (0.6-1.0) Estimated GFR 48 Glucose 272 mg/dL H mg/dL (70-100) Calcium 9.5 mg/dL mg/dL (8.5-10.4) Medications Given: Senna/Docusate Sodium (Senokot-S) 1 - 2 tab PO BID ROSAS PRN Reason: Protocol Stop: 06/10/19 08:59 Last Admin: 12/12/18 14:05 Dose: Not Given Tramadol HCl (Ultram) 50 mg PO Q6HRS ROSAS Stop: 06/10/19 11:59 Last Admin: 12/12/18 14:05 Dose: Not Given Discontinued Medications Bacitracin (Bacitracin Syringe) Confirm Administered Dose 50,000 units IRR .STK- MED ONE Stop: 12/12/18 09:12 Last Admin: 12/12/18 12:10 Dose: 50,000 units Bupivacaine HCl/Epinephrine Bitart (Bupivacaine/Epi) Confirm Administered Dose 30 ml .ROUTE .STK-MED ONE Stop: 12/12/18 09:11 Last Admin: 12/12/18 12:11 Dose: 30 ml Cefazolin Sodium/Dextrose (Ancef) 100 mls @ 200 mls/hr IV ONCALL ONE PRN Reason: Protocol Stop: 12/12/18 10:42 Last Admin: 12/12/18 11:18 Dose: 100 mls Ropivacaine 80 mg/ Epinephrine HCl 0.2 mg/ Ketorolac Tromethamine 30 mg/ Morphine Sulfate 10 mg/ Syringe 42.2 mls @ 0 mls/hr IU ONCALL ONE PRN Reason: As Directed Stop: 12/12/18 10:14 Last Admin: 12/12/18 12:14 Dose: 42.2 mls Tranexamic Acid 3,000 mg/ (Sodium Chloride) 50 mls @ 0 mls/hr IRR ONCALL ONE PRN Reason: As Directed Stop: 12/12/18 10:14 Last Admin: 12/12/18 12:14 Dose: 50 mls Cefazolin Sodium/Dextrose (Ancef) 100 mls @ 200 mls/hr IV Q8HRS ROSAS PRN Reason: Protocol Stop: 12/12/18 22:29 Last Admin: 12/12/18 14:30 Dose: Not Given Polymyxin B Sulfate (Polymyxin B Syringe) Confirm Administered Dose 500,000 unit IRR .STK-MED ONE Stop: 12/12/18 09:12 Last Admin: 12/12/18 12:13 Dose: Not Given Polymyxin B Sulfate (Polymyxin B Syringe) Confirm Administered Dose 500,000 unit IRR .STK-MED ONE Stop: 12/12/18 09:37 Last Admin: 12/12/18 12:10 Dose: 500,000 unit Departure - Departure Disposition: [facility] Inpatient Acute Clinical Impression: Fracture of femoral neck, right Qualifiers: Encounter type: initial encounter Fracture type: closed Qualified Code(s): S72.001A - Fracture of unspecified part of neck of right femur, initial encounter for closed fracture Condition: Fair
[2018-12-12] MEDS ORDERED: LR 1,000 ML IV SCH ×2 (08:30→13:30)
--- NOTE | 2018-12-12 08:33 | PDGENHP ---
History and Physical History and Physical: CC: Right hip pain after fall HISTORY: This patient last night fell and landed on her right knee and had onset of pain in the hip is been unable to bear weight on her right leg because of hip pain since that time. She has come into the ER by ambulance and found to have a right hip fracture. The patient's fall was a mechanical fall and there was no symptom to suggest any neurologic cardiovascular pulmonary GI or any other acute illness or activity. She does have history of at least 1 fall with a finger injury in the past. She has been through extensive physical therapy rehabilitation for weakness and perceived fall risk in the past. Notably she had a TAVR procedure a couple months or so ago and said she actually feels like she has been doing better after the TAVR procedure. This is her 1st fracture. She does not recall if she has been tested for vitamin D or not. Looking through her inpatient and outpatient records I cannot find evidence of a vitamin-D level and she is not taking any vitamin-D supplements ROS: A comprehensive 10 system review revealed no other significant findings PAST MEDICAL HISTORY: Diabetes mellitus Kidney stone Paroxysmal AFib - chronic Eliquis therapy TAVR for critical aortic stenosis; severe mitral regurgitation Sleep apnea uses CPAP Hypertension Chronic hypoxemic respiratory failure Depression Hypothyroidism Chronic kidney disease stage 3 Staghorn renal calculus FAMILY MEDICAL HISTORY: Coronary artery disease SOCIAL HISTORY: Former smoker No alcohol use MEDICATIONS: The patients list has been reconciled by our clinical pharmacist in the EMR. I have reviewed the list and ordered appropriate medicines. 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: Examination(my examination is done postop from her hip surgery): General: alert, oriented, good mentation, relaxed, sitting in chair talking to a friend Skin: warm, dry, pale, no rash HEENT: normal Neck: no mass or jvd Resps: relaxed Lungs: clear breath sounds Heart: regular, no murmur Abdomen: soft, nondistended, nontender, +BS, no mass Upper Extremities: normal Lower Extremities: no edema, warm No Bleeding or bruising Neurologic: She has consistently expressionless face suggestive of possible Parkinson's though I do not see a resting tremor 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 There is an impacted femoral neck fracture on the right. At the knee there is severe degenerative change with medial joint space narrowing and market osteophytes diffusely across tibia patella and femur. It is difficult to rule out a small medial fracture of osteophyte at the right knee. The studies have not been read by radiologist yet 12 LEAD EKG: I read 12 lead EKG tracing done in the ER to sinus rhythm with left anterior fascicular block, no acute abnormalities ASSESSMENT: * Impacted right femoral neck fracture after a fall acute onset last night * Severe degenerative joint disease at the right knee, no definite fracture but could not rule out a small avulsion of an osteophyte medial tibia * Acute metabolic acidosis, uncertain etiology * Chronic kidney disease * Paroxysmal AFib and Valvular heart disease, status post TAVR and with severe mitral regurgitation -chronic anticoagulation for the above with Eliquis, held for surgery and she was given tranexamic acid * Diabetes mellitus type 2 currently with hyperglycemia at 260 * Concern for possible Parkinson's or similar syndrome, will have to see how her gait is when she can work with physical therapy but clearly she is at high fall risk PLANS: * Inpatient admission * ortho consult * hold eliquis * pain managament * DVT proph - is on elequis at home, stopped now for surgery and can resume post op when stable from bleeding standpoint, Sachin's and SCDs now * Fall risk precautions * PT and OT * Follow sugars closely in the hospital adjust treatment as indicated I have reviewed the patient's case in detail with Dr. Xiomara Betts I have reviewed the patient's past medical records as part of this assessment, including past hospital admission records
[2018-12-12] MEDS ORDERED: ZOLPIDEM TARTRATE 5 MG TAB PO PRN (08:37)
[2018-12-12] MEDS ORDERED: ONDANSETRON 4 MG/2 ML VIAL IVP PRN (08:37)
[2018-12-12] MEDS ORDERED: HYDROmorphONE/DILAUDID 1 MG/ML INJ IVP PRN (08:39)
[2018-12-12] MEDS ORDERED: BISACODYL 10 MG SUPP PR PRN (08:40)
[2018-12-12] MEDS ORDERED: POLYETHYLENE GLYCOL 3350 17 GM PKT PO PRN (08:40)
--- NOTE | 2018-12-12 09:03 | PDANEPAE ---
ANE History of Present Illness right hip fx ANE Past Medical History - Cardiovascular History Hx Hypertension: Yes Hx Arrhythmias: Yes Hx Chest Pain: No Hx Coronary Artery / Peripheral Vascular Disease: No Hx CHF / Valvular Disease: Yes Hx Palpitations: No Cardiovascular History Comment: afib. TAVR 10/2017. hyperlipidemia. followed by [facility] - Pulmonary History Hx COPD: No Hx Asthma/Reactive Airway Disease: Yes Hx Recent Upper Respiratory Infection: No Hx Oxygen in Use at Home: Yes O2 in Use at Home (L/minute): 2 Hx Sleep Apnea: Yes Pulmonary History Comment: hernan positive- instructed pt to bring cpap. pulm htn. nocturnal hypoxia - Neurologic History Hx Cerebrovascular Accident: No Hx Seizures: No Hx Dementia: No - Endocrine History Hx Diabetes: Yes Hypothyroid: No Hyperthyroid: No Obesity: no Endocrine History Comment: type 2 - Renal History Hx Renal Disorders: Yes Renal History Comment: CKD stg 3. hx of kidney stones. hx of hematuria - Liver History Hx Hepatic Disorders: No - Neurological & Psychiatric Hx Hx Neurological and Psychiatric Disorders: Yes Neurological / Psychiatric History Comment: depression - Cancer History Hx Cancer: No - Congenital Disorder History Hx Congenital Disorders: No - GI History Hx Gastrointestinal Disorders: No - Other Health History Other Health History: bruises on L. arm, weak legs. anemia - Chronic Pain History Chronic Pain: No - Surgical History Prior Surgeries: 10/27/17 TAVR with Renetta. 11/13/16 right renal nephrostomy tube with Mao. 10/30/16 right perc neph tube with Mao. keyla RODRIGUEZ Review of Systems Review of systems is: negative Review of Systems: ANE Patient History - Allergies Allergies/Adverse Reactions: No Known Allergies Allergy (Verified 12/12/18 06:25) - Home Medications Home medications: home medication list seen and reviewed Home Medications: ARIPiprazole [Abilify 10 mg (*)] 05/02/17 [Last Taken 05/21/18] Atorvastatin Calcium [Lipitor 20 mg (*)] 05/02/17 [Last Taken 05/21/18] Herbals/Supplements -Info Only 05/02/17 [Last Taken 05/20/18] Levothyroxine [Synthroid 125 mcg (*)] 05/02/17 [Last Taken 05/21/18] buPROPion SR [Wellbutrin 100mg SR (*)] 05/02/17 [Last Taken 05/21/18] metFORMIN HCL [Glucophage 1000 mg] 05/02/17 [Last Taken 05/20/18] amLODIPine BESYLATE [Norvasc 10 mg (*)] 10/09/17 [Last Taken 05/20/18] Apixaban [Eliquis] 01/20/18 [Last Taken 05/19/18] Carvedilol 01/20/18 [Last Taken 05/20/18] Losartan Potassium 05/20/18 [Last Taken 05/21/18] Metoprolol Tartrate 05/20/18 [Last Taken 05/21/18] - NPO status NPO Status: no food or drink >8 hours NPO Since - Liquids (Date): 12/11/18 NPO Since - Liquids (Time): 19:30 NPO Since - Solids (Date): 12/11/18 NPO Since - Solids (Time): 19:30 - Anes Hx Anes Hx: no prior problems - Smoking Hx Smoking Status: Former smoker - Alcohol Use Alcohol Use: Sober - Family Anes Hx Family Anes Hx: none Family Hx Anesthesia Complications: none ANE Labs/Vital Signs - Labs Result Diagrams: 12/12/18 06:30 12/12/18 06:30 - Vital Signs Blood Pressure: 137/91 Heart Rate: 73 Respiratory Rate: 18 O2 Sat (%): 95 Height: 170.18 cm Weight: 66.678 kg ANE Physical Exam - Airway Neck exam: FROM Mallampati Score: Class 2 Mouth exam: normal dental/mouth exam - Pulmonary Pulmonary: no respiratory distress, clear to auscultation - Cardiovascular Cardiovascular: regular rate and rhythym, no murmur, rub, or gallop - ASA Status ASA Status: III ANE Anesthesia Plan Anesthesia Plan: general endotracheal anesthesia
[2018-12-12] MEDS ORDERED: BUPIVACAINE/EPI 0.5% 30 ML SDV ONE (09:10)
[2018-12-12] MEDS ORDERED: POLYMYXIN B SULFATE 500,000 UNIT/10 ML SYR IRR ONE ×2 (09:11→09:36)
[2018-12-12] MEDS ORDERED: BACITRACIN 50,000 UNITS/10 ML SYR IRR ONE (09:11)
[2018-12-12] MEDS ORDERED: fentaNYL 250 MCG/5 ML INJ ONE (09:32)
[2018-12-12] MEDS ORDERED: PROPOFOL 200 MG/20 ML VIAL ONE (09:32)
[2018-12-12] MEDS ORDERED: ROPIVACAINE 0.2% 80 MG, EPINEPHrine 0.2 MG, KETOROLAC TROMETHAMINE 30 MG, morphINE 10 M... IU ONE (10:13)
[2018-12-12] MEDS ORDERED: ceFAZolin 2 GM/DEXTROSE 100 ML IV ONE (10:13)
[2018-12-12] MEDS ORDERED: TRANEXAMIC ACID 3,000 MG in NS (SYRINGE) 50 ML IRR ONE (10:13)
[2018-12-12] MEDS ORDERED: ROCURONIUM 50 MG/5 ML VIAL ONE (11:07)
[2018-12-12] MEDS ORDERED: ONDANSETRON 4 MG/2 ML VIAL ONE (11:07)
[2018-12-12] MEDS ORDERED: DEXAMETHASONE 4 MG/ML VIAL ONE (11:07)
[2018-12-12] MEDS ORDERED: LIDOCAINE 2% 2 ML INJ ONE (11:07)
[2018-12-12] MEDS ORDERED: GLYCOPYRROLATE 0.2 MG/1 ML VIAL ONE ×2 (12:27)
[2018-12-12] MEDS ORDERED: NEOSTIGMINE METHYLSULFATE 5 MG/5 ML SYR ONE (12:27)
--- NOTE | 2018-12-12 12:42 | CPEKG ---
Test Reason : OPEN Blood Pressure : / mmHG Vent. Rate : 081 BPM Atrial Rate : 082 BPM P-R Int : 189 ms QRS Dur : 112 ms QT Int : 400 ms P-R-T Axes : -74 -50 051 degrees QTc Int : 465 ms Sinus or ectopic atrial rhythm Left anterior fascicular block Probable left ventricular hypertrophy Confirmed by Xiomara Betts ([id number]) on 12/12/2018 12:41:53 PM Referred By: Kory Gallegos Confirmed By:Xiomara Betts
[2018-12-12] MEDS ORDERED: fentaNYL 100 MCG/2 ML INJ IVP PRN (12:45)
[2018-12-12] MEDS ORDERED: MEPERIDINE 25 MG/0.5 ML AMP IVP PRN (12:45)
[2018-12-12] MEDS ORDERED: PROMETHAZINE HCL 25 MG/ML INJ IVP PRN (12:45)
[2018-12-12] MEDS ORDERED: PHENYLEPHRINE HCL 100 MCG/ML SYR IVP PRN (12:45)
[2018-12-12] MEDS ORDERED: NALOXONE HCL 0.4 MG/ML INJ IVP PRN (12:45)
--- NOTE | 2018-12-12 12:46 | POSTANESTH ---
Post Anesthetic Evaluation Cardiovascular Status: Normal, Stable Respiratory Status: Normal, Stable Level of Consciousness/Mental Status: Can Participate in Eval Pain Control: Adequate, Prn Tx Ordered Nausea/Vomiting Control: Adequate, Prn Tx Ordered Complications Possibly Related to Anesthesia: None Noted
[2018-12-12] MEDS ORDERED: DIPHENOXYLATE/ATROPINE LOMOTIL 1 TAB PO PRN (13:06)
[2018-12-12] MEDS ORDERED: TEMAZEPAM 15 MG CAP PO PRN (13:06)
[2018-12-12] MEDS ORDERED: ONDANSETRON DISINTEGRATING 4 MG TAB PO PRN (13:06)
[2018-12-12] MEDS ORDERED: METOCLOPRAMIDE 10 MG/2 ML VIAL IVP PRN (13:06)
[2018-12-12] MEDS ORDERED: oxyCODONE IR 5 MG TAB PO PRN (13:06)
[2018-12-12] MEDS ORDERED: LACTULOSE 20 GM/30 ML UDCUP PO PRN (13:06)
[2018-12-12] MEDS ORDERED: TAPENTADOL HCL 50 MG TAB PO PRN (13:06)
[2018-12-12] MEDS ORDERED: MAGNESIUM HYDROXIDE 30 ML UDCUP PO PRN (13:06)
[2018-12-12] MEDS ORDERED: diphenhydrAMINE 25 MG CAP PO PRN (13:06)
[2018-12-12] MEDS ORDERED: CYCLOBENZAPRINE 10 MG TAB PO PRN (13:06)
--- NOTE | 2018-12-12 13:06 | POSTOPPROG ---
Post Op Note Date of Operation: 12/12/18 Surgeon: Luisana Wesley Anesthesia: GET(General Endotracheal) Pre-op Diagnosis: r hip fx Procedure: r hip alyssa-arthroplasty with fluoro Inf/Abcess present in the surg proc area at time of surgery?: Yes Depth: Deep Incisional (Fascial) EBL: 100-500
[2018-12-12] MEDS ORDERED: ceFAZolin 2 GM/DEXTROSE 100 ML IV SCH (14:00)
[2018-12-12] MEDS: traMADol 50 MG TAB PO SCH ×2 (14:05→17:44)
[2018-12-12] MEDS: SENNOSIDES/DOCUSATE SODIUM TAB PO SCH ×2 (14:05→21:10)
--- NOTE | 2018-12-12 17:00 | GOP ---
[f rep st] OPERATIVE REPORT DATE OF OPERATION: 12/12/2018 SURGEON: Luisana Wesley MD ANESTHESIA: By endotracheal intubation. PREOPERATIVE DIAGNOSIS: Right femoral neck fracture. POSTOPERATIVE DIAGNOSIS: Right femoral neck fracture. PROCEDURE PERFORMED: Right hip hemiarthroplasty with fluoroscopy. FINDINGS: INDICATIONS: This is a 73-year-old female who fell at her home, was brought to the emergency room [facility] this morning. She was diagnosed with a femoral neck fracture. She was brought to the operatin g room as soon as she was medically stable and time was available. DESCRIPTION OF PROCEDURE: Patient was brought to the operating room after the right side had been id entified as the correct side by the patient, nurse, and physician. Once in the operating room, she w as placed under general anesthesia using endotracheal intubation. Once asleep, she was placed on a f racture table with a well-padded peroneal post and both legs placed in appropriate leg lieberman. Fluor oscopy was used to ensure proper positioning of the pelvis. Once in proper position, the arch table was locked into place. Once locked into place, the right hip and flank were sterilely prepped and dr aped in usual fashion using GSI solution. During prepping and draping, she was noted to have macerat ed skin within her inguinal folds and into her groin, therefore making the surgery contaminated secon andrae to the compromised skin. Once prepped and draped, a linear incision was made 2 cm lateral and i nferior to the ASIS and heading in a 15-degree posterior direction, with sharp dissection carried jw n through the skin and subcutaneous layers with bleeding controlled using electrocautery. Dissection was then carried down onto the fascia overlying the TFL. The fascia overlying the TFL incised in li ne with its fibers with the muscle retracted laterally. Blunt dissection was carried down to the fas cial sheath at its base where the circumflex vessels were found and cauterized. Deeper dissection wa s carried down on the hip capsule with a blunt Cobra retractor placed on the superior and inferior po rtion of the femoral neck. An anterior acetabular retractor placed on the anterior portion of the yuliet int. The anterior capsule was removed in its entirety. Oscillating saw was used to cut across the f emoral neck just above the intertrochanteric line. The leg was externally rotated to 40 degrees and a corkscrew was used to remove the head. The head was measured to be 47-48 mm in diameter. Multiple trials were placed within the socket, and noted that a 47 mm head seemed to fit best. Attention was then turned back to the femoral neck. The femur was externally rotated to 90 degrees. Capsular dis section was done on the anterior and superior portion of the femoral neck. Once an adequate release had been performed, the leg was placed into extension and adduction. A curette was used to remove me dullary bone from the proximal portion of the femur and a rongeur was used to remove the superior por tion of the femoral neck. Multiple broaches were placed within the femur noting a size 8 fit best. With good fixation a trial reduction was performed. Fluoroscopy was used to ensure proper fill of th e proximal femur as well as good leg lengths. Once this had been ensured the leg was re-dislocated, placed in extension and adduction. The trials were removed and a size 8 Accolade II 127-degree neck angle stem from igobubble was put into place and noted to fit securely. The trunnion was washed and dr luciana and a 26 +0 femoral head was put into place, and then a 47 x 26 mm bipolar component head was put into place. The hip was re-reduced and put into place and noted to fit securely. Joint cocktail wa s injected in around the posterior capsule, the periosteum of the acetabulum, femur, the hip flexors as well as the TFL. The wound was thoroughly irrigated with a Betadine solution and then irrigated w ith tranexamic acid. The wound was then closed in layers to include 0 Vicryl suture for the fascia o verlying the TFL, 0 Vicryl and 2-0 Vicryl suture for the deep subcutaneous layers and a 3-0 V-Loc sut ure in a running subcuticular stitch for the skin. 30 cc of Marcaine was infused around the actual s kin incision itself. The wound was dressed with Steri-Strips and then a silver-impregnated dressing in order to keep it sealed. The patient was completely undraped in the operating room, had both legs taken out of their leg holders. Peroneal post was removed. Leg lengths were noted to be equal. Zehra grewal was woken up, extubated, transferred onto a bed and sent to recovery room in good condition. /[id number]/MODL
[2018-12-12] MEDS: KETOROLAC 15 MG/1 ML SDV IVP SCH (17:44)
[2018-12-12] MEDS: metFORMIN HCL 500 MG TAB PO SCH (17:44)
[2018-12-12] MEDS ORDERED: INSULIN LISPRO 100 UNIT/ML SC ONE (17:57)
--- NOTE | 2018-12-12 18:05 | GCON ---
[f rep st] CONSULTATION DATE OF CONSULTATION: 12/12/2018 CHIEF COMPLAINT: Right hip pain. HISTORY OF PRESENT ILLNESS: The patient is a 73-year-old female who was brought to the emergency [facility] today after falling at home. Diagnosed with a femoral neck fracture. I was asked to see the patie nt for further evaluation. PHYSICAL EXAMINATION: The patient is neurologically intact to the dorsal, lateral, and plantar porti ons of the foot. She has pain to log roll of the leg. X-ray exam reveals a displaced proximal femoral neck fracture. ASSESSMENT AND PLAN: Patient is status post right femoral neck fracture. Plan is take her to the op erating room as soon as she is medically stable based on her bleeding time and Anesthesia's times юлия ayala. /[id number]/MODL
--- NOTE | 2018-12-12 18:18 | PDMN ---
Medical Necessity Medical necessity: Pt meets IP criteria as of 12/12/2018 per and [facility] S-600 ( Hip: Displaced Fracture of Femoral Neck, Hemiarthroplasty); est los > 2 mn for ongoing tx and management of hip fx with immediate surgical intervention s/p fall in an elderly pt; requiring post-op care, PT/OT, and pain management; Hx DM II, Afib on AC, TAVR, VIRGIE, HTN, depression, hypothyroidism, CKD III, and staghorn renal calculus.
[2018-12-12] MEDS: ceFAZolin 2 GM/DEXTROSE 100 ML IV SCH (19:27)
[2018-12-12] MEDS ORDERED: FAMOTIDINE 20 MG TAB PO SCH (21:00)
[2018-12-12] MEDS: MELATONIN 3 MG TAB PO SCH (21:09)
[2018-12-12] MEDS: METOPROLOL TARTRATE 25 MG TAB PO SCH (21:09)
[2018-12-13] MEDS: KETOROLAC 15 MG/1 ML SDV IVP SCH ×3 (00:14→11:29)
[2018-12-13] MEDS: traMADol 50 MG TAB PO SCH ×4 (00:15→18:23)
[2018-12-13] MEDS: ceFAZolin 2 GM/DEXTROSE 100 ML IV SCH (03:24)
[2018-12-13 04:59] LABS: INR 1.15 (0.83-1.16); PROTIME(PATIENT) 14.2 SEC (12.0-15.0)
[2018-12-13 05:01] LABS: PLATELET COUNT 150 10^3/uL (150-400)
[2018-12-13] MEDS: LEVOTHYROXINE 125 MCG TAB PO SCH (06:08)
[2018-12-13] MEDS ORDERED: NS 500 ML IV ONE (08:53)
[2018-12-13] MEDS: buPROPion SR 100 MG TAB PO SCH (08:54)
[2018-12-13] MEDS: ATORVASTATIN CALCIUM 20 MG TAB PO SCH (08:54)
[2018-12-13] MEDS: ARIPiprazole 10 MG TAB PO SCH (08:54)
--- NOTE | 2018-12-13 09:22 | HOSPPROG ---
Hospitalist Progress Note Assessment/Plan: DIAGNOSES: * Impacted right femoral neck fracture status post hemiarthroplasty * Acute kidney injury appears hemodynamic mechanism from blood loss, along with losartan; history of stage 3 chronic kidney disease * Expected post hemorrhagic anemia following hip fracture and surgery * Acute metabolic acidosis, uncertain etiology - resolved * Paroxysmal AFib and Valvular heart disease, status post TAVR and with severe mitral regurgitation -chronic anticoagulation for the above with Eliquis, held for surgery * Diabetes mellitus type 2 * Concern for possible Parkinson's or similar syndrome, will have to see how her gait is when she can work with physical therapy but clearly she is at high fall risk PLANS: * Will give further IV fluid bolus * Hold antihypertensive meds this am * Follow renal fxn closely * repeat Hg mid day, hold on Eliquis until we see that she is not having further bleeding * Physical occupational therapy * Fall risk precaution * Follow sugars closely, have been in good range so far SUBJECTIVE: States she feels well Hip feel stiff but not very painful Eating well Not lightheaded OBJECTIVE Vitals reviewed: Has had some hypertension through the night otherwise stable without fever 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 Exam: alert oriented, still with expressionless face but no resting tremor skin warm dry color ok resps not labored lungs clear BSs heart regular abd soft nondistended nontender, bowel sounds present limbs warm, no edema iv site ok Lab data: Hemoglobin decreased to 9 White blood cell count still at 10,000 but decreased from yesterday Creatinine increased to 1.4 with increase in BUN, electrolytes stable Metabolic acidosis has resolved Objective: Vital Signs Temp Pulse Resp BP Pulse Ox 36.5 C 74 16 99/52 L 95 12/13/18 07:39 12/13/18 07:39 12/13/18 07:39 12/13/18 07:39 12/13/18 07:39 Laboratory Results 12/13/18 04:40 12/13/18 04:40 12/12/18 12/13/18 12/14/18 06:59 06:59 06:59 Intake Total 1600 300 Output Total 460 Balance 1140 300 PT 14.2 SEC (12.0-15.0) 12/13/18 04:40 INR 1.15 (0.83-1.16) 12/13/18 04:40 - Time Spent With Patient Time Spent with Patient: greater than 35 minutes Time Spent with Patient: Greater than 35 minutes spent on this patients care, greater than 50% of time spent counseling, educating, and coordinating care regarding the above mentioned plan. ICD10 Worksheet Patient Problems: Problems Problem Status Onset Fracture of femoral neck, right Acute Aortic stenosis Acute CKD (chronic kidney disease), stage III Acute Dehydration Acute Elevated troponin Acute Pyelonephritis Acute Staghorn renal calculus Acute Urinary tract infection Acute Weakness Acute Weakness Acute
[2018-12-13] MEDS: LOSARTAN POTASSIUM 50 MG TAB PO SCH (09:28)
[2018-12-13] MEDS: metFORMIN HCL 500 MG TAB PO SCH ×2 (09:28→18:23)
[2018-12-13] MEDS: METOPROLOL TARTRATE 25 MG TAB PO SCH ×2 (09:28→22:25)
[2018-12-13] MEDS: SENNOSIDES/DOCUSATE SODIUM TAB PO SCH ×2 (09:29→22:27)
--- NOTE | 2018-12-13 13:42 | SOAPPROG ---
SOAP Progress Note Assessment/Plan: Assessment: Plan: Subjective: states she's comfortable dressing C&D with foot NVI OOB to chair cont pain medds and PT ?rehab placement Objective: Vital Signs Temp Pulse Resp BP Pulse Ox 36.7 C 81 17 115/54 L 92 12/13/18 12:00 12/13/18 12:00 12/13/18 12:00 12/13/18 12:00 12/13/18 12:00 Laboratory Results 12/13/18 04:40 12/13/18 04:40 12/12/18 12/13/18 12/14/18 05:59 05:59 05:59 Intake Total 1600 300 Output Total 360 100 Balance 1240 200 PT 14.2 SEC (12.0-15.0) 12/13/18 04:40 INR 1.15 (0.83-1.16) 12/13/18 04:40 ICD10 Worksheet Patient Problems: Problems Problem Status Onset Fracture of femoral neck, right Acute Aortic stenosis Acute CKD (chronic kidney disease), stage III Acute Dehydration Acute Elevated troponin Acute Pyelonephritis Acute Staghorn renal calculus Acute Urinary tract infection Acute Weakness Acute Weakness Acute
--- NOTE | 2018-12-13 15:49 | ASMTCMCOM ---
CM Note CM Note Notes: Spoke with pt in the room. Pt lives alone and was admitted for hip fracture and had surgery on 12/12. PT/OT recommending SNF and pt has requested [facility]. Referral sent. Discharge date tbd. CM to follow. D/C Plan: SNF, pending acceptance at [facility] Date Signed: 12/13/2018 03:49 PM Electronically Signed By:Estefani Cardona
[2018-12-13] MEDS: MELATONIN 3 MG TAB PO SCH (22:26)
[2018-12-14] MEDS: traMADol 50 MG TAB PO SCH ×4 (02:21→18:34)
[2018-12-14 05:05] LABS: INR 1.08 (0.83-1.16); PROTIME(PATIENT) 13.6 SEC (12.0-15.0)
[2018-12-14] MEDS: LEVOTHYROXINE 125 MCG TAB PO SCH (07:08)
--- NOTE | 2018-12-14 09:15 | WOCRNPDOC ---
WOCRN Advanced Assessment Note - Skin Integrity Problem, Advanced Assess Bilateral Groin Dermatitis Dressing Type: Open to Air Wound Bed Color: [place] Skin Integrity Problem Comment: Intertriginous dermatitis noted to bilateral groin. Interdry sheets replaced to area. RN to continue with skin fold care per policy. Right side with increased erythema extending to under hip dressing. Dressing to hip incision not intact at proximal medial edge. In pulling aside the dressing the incision is noted to be red with yellow fibrinous tissue. Advised for FLORECITA Villalobos to have Dr Wesley visualize incision. FLORECITA Grace in room for assessment. Wound care will sign off.
--- NOTE | 2018-12-14 09:34 | SOAPPROG ---
SOAP Progress Note Assessment/Plan: Assessment: Kayce is POD#2 s/p right hip hemiarthroplasty. She reports she is not having any pain. Wound care was consulted and suggested a different adhesive dressing. PE: Dressing without drainage present. The proximal 2cm of the incision is slightly moist with some slight dehiscence and fibrinous tissue present. No drainage present. Gentle ROM of the hip is without pain. DF/PF of the foot intact. Sensation intact to light touch. Calf is soft to compression without pain. Plan: 1. Change dressing per wound care suggestion. 2. WBAT RLE 3. PT/OT for ROM, gait training, and strengthening 4. Plan for d/c to SNF tomorrow Objective: Vital Signs Temp Pulse Resp BP Pulse Ox 36.8 C 65 14 133/53 H 95 12/14/18 07:48 12/14/18 07:48 12/14/18 07:48 12/14/18 07:48 12/14/18 07:48 Laboratory Results 12/14/18 04:40 12/13/18 04:40 12/13/18 12/14/18 12/15/18 05:59 05:59 05:59 Intake Total 1600 1650 Output Total 360 1750 500 Balance 1240 -100 -500 PT 13.6 SEC (12.0-15.0) 12/14/18 04:40 INR 1.08 (0.83-1.16) 12/14/18 04:40 ICD10 Worksheet Patient Problems: Problems Problem Status Onset Fracture of femoral neck, right Acute Aortic stenosis Acute CKD (chronic kidney disease), stage III Acute Dehydration Acute Elevated troponin Acute Pyelonephritis Acute Staghorn renal calculus Acute Urinary tract infection Acute Weakness Acute Weakness Acute
[2018-12-14] MEDS: metFORMIN HCL 500 MG TAB PO SCH ×2 (10:32→17:09)
[2018-12-14] MEDS: buPROPion SR 100 MG TAB PO SCH (10:33)
[2018-12-14] MEDS: SENNOSIDES/DOCUSATE SODIUM TAB PO SCH ×2 (10:33→20:22)
[2018-12-14] MEDS: ARIPiprazole 10 MG TAB PO SCH (10:33)
[2018-12-14] MEDS: ATORVASTATIN CALCIUM 20 MG TAB PO SCH (10:33)
[2018-12-14] MEDS: LOSARTAN POTASSIUM 50 MG TAB PO SCH (10:34)
[2018-12-14] MEDS: METOPROLOL TARTRATE 25 MG TAB PO SCH ×2 (10:35→20:21)
--- NOTE | 2018-12-14 11:15 | HOSPPROG ---
Hospitalist Progress Note Assessment/Plan: DIAGNOSES: * Impacted right femoral neck fracture status post hemiarthroplasty * tachycardia from blood loss resolved * Mild acute renal injury from blood loss, * Expected post hemorrhagic anemia following hip fracture and surgery * Acute metabolic acidosis present at admission, uncertain etiology - resolved * Paroxysmal AFib and Valvular heart disease, chronic and stable, status post TAVR and with severe mitral regurgitation -chronic anticoagulation for the above with Eliquis, held for surgery * Diabetes mellitus type 2 stable here so far * ? developmental delay PLANS: * Resume Eliquis at this time; will stop celebrex * continue PT OT * fall risk precautions * DVT proph * agree that tomorrow should be able to DC to SNF SUBJECTIVE: States she feels well Hip feel stiff, no poain Eating well no fever sxs OBJECTIVE Vitals reviewed: all normal Urine output now normalized Exam: alert oriented, still with expressionless face but no resting tremor skin warm dry color ok resps not labored lungs clear BSs heart regular abd soft nondistended nontender, bowel sounds present limbs warm, no edema iv site ok Lab data: Hemoglobin stable Objective: Vital Signs Temp Pulse Resp BP Pulse Ox 36.8 C 73 14 113/62 95 12/14/18 07:48 12/14/18 10:35 12/14/18 07:48 12/14/18 10:35 12/14/18 07:48 Laboratory Results 12/14/18 04:40 12/13/18 04:40 12/13/18 12/14/18 12/15/18 06:59 06:59 06:59 Intake Total 1600 1650 Output Total 460 1650 500 Balance 1140 0 -500 PT 13.6 SEC (12.0-15.0) 12/14/18 04:40 INR 1.08 (0.83-1.16) 12/14/18 04:40 ICD10 Worksheet Patient Problems: Problems Problem Status Onset Fracture of femoral neck, right Acute Aortic stenosis Acute CKD (chronic kidney disease), stage III Acute Dehydration Acute Elevated troponin Acute Pyelonephritis Acute Staghorn renal calculus Acute Urinary tract infection Acute Weakness Acute Weakness Acute
[2018-12-14] MEDS: APIXABAN 5 MG TAB PO SCH ×2 (11:52→20:22)
[2018-12-14] MEDS: MELATONIN 3 MG TAB PO SCH (20:22)
[2018-12-15] MEDS: traMADol 50 MG TAB PO SCH ×4 (02:11→17:26)
[2018-12-15] MEDS: LEVOTHYROXINE 125 MCG TAB PO SCH (05:02)
[2018-12-15 05:38] LABS: INR 1.17 (0.83-1.16); PROTIME(PATIENT) 14.4 SEC (12.0-15.0)
[2018-12-15] MEDS: METOPROLOL TARTRATE 25 MG TAB PO SCH ×2 (08:52→21:17)
[2018-12-15] MEDS: metFORMIN HCL 500 MG TAB PO SCH ×2 (08:52→17:26)
[2018-12-15] MEDS: LOSARTAN POTASSIUM 50 MG TAB PO SCH (08:52)
[2018-12-15] MEDS: SENNOSIDES/DOCUSATE SODIUM TAB PO SCH ×2 (08:53→21:24)
[2018-12-15] MEDS: ARIPiprazole 10 MG TAB PO SCH (08:53)
[2018-12-15] MEDS: ATORVASTATIN CALCIUM 20 MG TAB PO SCH (08:54)
[2018-12-15] MEDS: buPROPion SR 100 MG TAB PO SCH (08:54)
[2018-12-15] MEDS: APIXABAN 5 MG TAB PO SCH ×2 (08:54→21:21)
[2018-12-15] MEDS: ACETAMINOPHEN 325 MG TAB PO PRN (09:24)
--- NOTE | 2018-12-15 14:52 | HOSPPROG ---
Hospitalist Progress Note Assessment/Plan: Galen is a 73 y/o woman who fell and was unable to bear weight. In the ER it was noted she had a right hip fx. First encounter, chart reviewed. *Impacted right femoral neck fracture status post hemiarthroplasty -POD #3 -WBAT RLE *acute blood loss anemia -will recheck labs in a.m. *tachycardia -resolved *mild acute renal injury -recheck labs in a.m. -reviewed her pmh and creat is close to her baseline *metabolic acidosis -resolved *paroxysmal afib, valvular heart disease, s/p TAVR -Eliquis resumed *Diabetes type 2 -stable *constipation -bowel protocol *plan: Sarah is feeling poorly today. will recheck labs in a.m. Hopefully, dc in the morning. Subjective: Sarah is feeling tired, overall having more pain today. Objective: Vital Signs Temp Pulse Resp BP Pulse Ox 36.9 C 80 16 133/61 H 95 12/15/18 07:42 12/15/18 07:42 12/15/18 07:42 12/15/18 07:42 12/15/18 07:42 Laboratory Results 12/14/18 04:40 12/14/18 11:45 12/14/18 12/15/18 12/16/18 05:59 05:59 05:59 Intake Total 1650 875 Output Total 1750 1650 950 Balance -100 -775 -950 PT 14.4 SEC (12.0-15.0) 12/15/18 04:44 INR 1.17 (0.83-1.16) H 12/15/18 04:44 - Physical Exam Constitutional: chronically ill appearing, uncomfortable Eyes: PERRL Ears, Nose, Mouth, Throat: hearing normal Cardiovascular: regular rate and rhythym Respiratory: no respiratory distress Gastrointestinal: soft, non-tender abdomen Skin: warm, other (right hip dressing dry, intact. Minimal swelling.), No normal color (pale) Musculoskeletal: generalized weakness Neurologic: AAOx3 Psychiatric: interacting appropriately, flat affect ICD10 Worksheet Patient Problems: Problems Problem Status Onset Fracture of femoral neck, right Acute Aortic stenosis Acute CKD (chronic kidney disease), stage III Acute Dehydration Acute Elevated troponin Acute Pyelonephritis Acute Staghorn renal calculus Acute Urinary tract infection Acute Weakness Acute Weakness Acute
--- NOTE | 2018-12-15 15:02 | SOAPPROG ---
SOAP Progress Note Assessment/Plan: Assessment: right femoral neck fracture s/p right hip hemiarthroplasty - POD 3 Anemia - level is expected initially post-op. Asymptomatic. Continue to monitor Plan: Continue d/c planning - likely going to SNF tomorrow Continue pain medication - currently taking Tylenol and Tramadol. Has oxycodone , flexeril and nucynta ordered Continue VTE ppx - chronically on Eliquis (paroxysmal a. fib, valvular heart disease, s/p TAVR) Continue PT efforts - WBAT on right lower extremity 12/15/18 15:23 Subjective: Patient states her right hip is sore, it feels deeper within the joint rather than superficial. This morning as she was getting off the toilet she felt a pop and noted a different level of pain in her right hip. X-rays were obtained that revealed normal alignment of the hemiarthroplasty. She complains of pain with walking and would not feel comfortable leaving today for the SNF. She would prefer to leave tomorrow. Patient denies numbness, tingling in the right lower extremity. Patient denies shortness of breath, chest pain, fever, chills. Objective: Vital Signs Temp Pulse Resp BP Pulse Ox 36.9 C 80 16 133/61 H 95 12/15/18 07:42 12/15/18 07:42 12/15/18 07:42 12/15/18 07:42 12/15/18 07:42 Laboratory Results 12/14/18 04:40 12/14/18 11:45 12/14/18 12/15/18 12/16/18 05:59 05:59 05:59 Intake Total 1650 875 Output Total 1750 1650 950 Balance -100 -775 -950 PT 14.4 SEC (12.0-15.0) 12/15/18 04:44 INR 1.17 (0.83-1.16) H 12/15/18 04:44 Patient is resting comfortably in bed, no acute distress. She has a flat affect. RLE: Wound dressing is clean, dry and intact. No erythema or drainage. Tenderness over the anterior hip/groin region. Lower leg compartments are soft, mild calf tenderness. No pain on Homans sign. She can actively DF and PF her right foot and great toe against resistance. Grossly NVI distally. ICD10 Worksheet Patient Problems: Problems Problem Status Onset Fracture of femoral neck, right Acute Aortic stenosis Acute CKD (chronic kidney disease), stage III Acute Dehydration Acute Elevated troponin Acute Pyelonephritis Acute Staghorn renal calculus Acute Urinary tract infection Acute Weakness Acute Weakness Acute
[2018-12-15] MEDS: POLYETHYLENE GLYCOL 3350 17 GM PKT PO SCH (15:42)
[2018-12-15] MEDS: MELATONIN 3 MG TAB PO SCH (21:21)
[2018-12-16] MEDS: traMADol 50 MG TAB PO SCH ×3 (00:18→11:54)
[2018-12-16] MEDS: LEVOTHYROXINE 125 MCG TAB PO SCH (05:15)
[2018-12-16 07:13] VITALS: BP 137/63
[2018-12-16] MEDS: ACETAMINOPHEN 325 MG TAB PO PRN (08:02)
[2018-12-16] MEDS: METOPROLOL TARTRATE 25 MG TAB PO SCH (08:03)
[2018-12-16] MEDS: metFORMIN HCL 500 MG TAB PO SCH (08:03)
[2018-12-16] MEDS: ATORVASTATIN CALCIUM 20 MG TAB PO SCH (08:04)
[2018-12-16] MEDS: LOSARTAN POTASSIUM 50 MG TAB PO SCH (08:04)
[2018-12-16] MEDS: ARIPiprazole 10 MG TAB PO SCH (08:05)
[2018-12-16] MEDS: buPROPion SR 100 MG TAB PO SCH (08:05)
[2018-12-16] MEDS: APIXABAN 5 MG TAB PO SCH (08:05)
[2018-12-16] MEDS: SENNOSIDES/DOCUSATE SODIUM TAB PO SCH (08:05)
[2018-12-16] MEDS: POLYETHYLENE GLYCOL 3350 17 GM PKT PO SCH (08:06)
--- NOTE | 2018-12-16 08:46 | HOSPPROG ---
Hospitalist Progress Note Assessment/Plan: Galen is a 73 y/o woman who fell and was unable to bear weight. In the ER it was noted she had a right hip fx. *Impacted right femoral neck fracture status post hemiarthroplasty -POD #4 -WBAT RLE *acute blood loss anemia -stable *tachycardia -resolved *mild acute renal injur -reviewed her pmh and creat is close to her baseline *metabolic acidosis -resolved *paroxysmal afib, valvular heart disease, s/p TAVR -Eliquis resumed *Diabetes type 2 -stable *constipation -bowel protocol *plan: dc Subjective: Sarah is feeling well, no complaints. Objective: Vital Signs Temp Pulse Resp BP Pulse Ox 36.9 C 70 16 137/63 H 93 12/16/18 07:12 12/16/18 07:12 12/16/18 07:12 12/16/18 07:12 12/16/18 07:12 Laboratory Results 12/16/18 04:54 12/16/18 04:54 12/15/18 12/16/18 12/17/18 05:59 05:59 05:59 Intake Total 875 725 Output Total 1650 1800 500 Balance -775 -1075 -500 PT 14.4 SEC (12.0-15.0) 12/15/18 04:44 INR 1.17 (0.83-1.16) H 12/15/18 04:44 - Physical Exam Constitutional: no apparent distress, appears nourished Eyes: PERRL Ears, Nose, Mouth, Throat: hearing normal Respiratory: no respiratory distress Skin: warm Musculoskeletal: generalized weakness Neurologic: AAOx3 Psychiatric: interacting appropriately, flat affect ICD10 Worksheet Patient Problems: Problems Problem Status Onset Fracture of femoral neck, right Acute Aortic stenosis Acute CKD (chronic kidney disease), stage III Acute Dehydration Acute Elevated troponin Acute Pyelonephritis Acute Staghorn renal calculus Acute Urinary tract infection Acute Weakness Acute Weakness Acute
--- NOTE | 2018-12-16 08:51 | PDIAF ---
- Diagnosis Diagnosis: impacted r femoral neck fx s/p hemiathroplasty, Paroxysmal afib, renal insu Code Status: Full Code - Medication Management Discharge Medications: electronically signed and located in the Home Medication List. PICC Care - Routine: N/A - Orders Services needed: Physical Therapy, Occupational Therapy Isolation Type: None Diet Recommendation: no restrictions on diet Diet Texture: Regular Texture Diet Additional Instructions: Keep dressing and wound clean and dry for 7 days post operatively. Continue WBAT RLE with assistance of a walker. Continue PT/OT for gait training, ROM, strengthening. Continue Eliquis for DVT prophylaxis. DONNA hose x 10 days post op. Follow up in our office with Dr. Wesley or Claudia Winston PA-C for repeat evaluation and wound check in 7-10 days post op. ([phone]) - Labs/Radiology HCT/HGB Date: 12/23/18 - Follow Up Care Current Providers and Referrals: Mariam Dyer MD [Primary Care Provider] - As per Instructions Luisana Wesley MD [Medical Doctor] -
--- NOTE | 2018-12-16 09:36 | SOAPPROG ---
SOAP Progress Note Assessment/Plan: Assessment: Kayce is POD#4 s/p right hip hemiarthroplasty. She reports she is not having any pain. Wound care was consulted and suggested a different adhesive dressing. PE: Dressing without scant drainage present. The proximal 2cm of the incision is slightly moist with some slight dehiscence and fibrinous tissue present. No worsening of the wound. No drainage present. Gentle ROM of the hip is without pain. DF/PF of the foot intact. Sensation intact to light touch. Calf is soft to compression without pain. Plan: 1. Change dressing per wound care suggestion. 2. WBAT RLE 3. PT/OT for ROM, gait training, and strengthening 4. Plan for d/c to SNF today 12/16/18 09:33 Objective: Vital Signs Temp Pulse Resp BP Pulse Ox 36.9 C 70 16 137/63 H 93 12/16/18 07:12 12/16/18 07:12 12/16/18 07:12 12/16/18 07:12 12/16/18 07:12 Laboratory Results 12/16/18 04:54 12/16/18 04:54 12/15/18 12/16/18 12/17/18 05:59 05:59 05:59 Intake Total 875 725 Output Total 1650 1800 500 Balance -775 -1075 -500 PT 14.4 SEC (12.0-15.0) 12/15/18 04:44 INR 1.17 (0.83-1.16) H 12/15/18 04:44 ICD10 Worksheet Patient Problems: Problems Problem Status Onset Fracture of femoral neck, right Acute Aortic stenosis Acute CKD (chronic kidney disease), stage III Acute Dehydration Acute Elevated troponin Acute Pyelonephritis Acute Staghorn renal calculus Acute Urinary tract infection Acute Weakness Acute Weakness Acute
--- NOTE | 2018-12-16 10:06 | GDS ---
[f rep st] DISCHARGE SUMMARY DISCHARGE DIAGNOSES: 1. Impacted right femoral neck fracture status post hemiarthroplasty. 2. Acute blood loss anemia. 3. Tachycardia. 4. Mild acute renal injury. 5. Metabolic acidosis. 6. Paroxysmal atrial fibrillation, valvular heart disease status post transaortic valve replacement. 7. Diabetes type 2. 8. Constipation. CONSULTATION: Dr. Luisana Wesley. HISTORY AND HOSPITAL COURSE: Briefly, this patient is a 73-year-old woman who fell at home, was unable to bear weight. It was noted in the emergency room she had a right hip fracture. She had a hemiarthroplasty with Dr. Wesley. [facility]. HOSPITAL COURSE PER PROBLEM: 1. Impacted right femoral neck fracture. This is status post hemiarthroplasty. She is postop day #4. She will be weightbearing as tolerated to her right lower extremity. 2. Acute blood loss anemia. This has been monitored, stable. She did not require any type of transfusion. 3. Tachycardia, resolved. 4. Mild acute renal injury. Her creatinine is at her baseline. 5. Metabolic acidosis, resolved. 6. Paroxysmal atrial fibrillation, valvular heart disease, status post TAVR. Eliquis was resumed. 7. Diabetes type 2, stable. 8. Constipation, resolved. DISCHARGE CONDITION: Stable. Blood pressure is 137/63, heart rate is 70, respiratory rate is 16, O2 sats on room air 93%, temperature is 36.9 Celsius. MEDICATIONS AT DISCHARGE: Please see the EMR. DISCHARGE INSTRUCTIONS: 1. To keep the dressing wound clean and dry for the next 7 days. 2. To follow up with Dr. Wesley or Claudia Winston PA-C, for repeat evaluation and wound check in 7-10 days. Greater than 30 minutes discharging and coordinating her care. /[id number]/MODL MTDD
--- NOTE | 2018-12-16 10:30 | ASMTLACE ---
LACE Length of stay for Answers: 4-6 days current admission Acuity / Level of Answers: Yes Care: Did the patient have an inpatient admission? Comorbidities - select Answers: Congestive heart failure all that apply Diabetes (uncontrolled or controlled) Moderate or severe liver or renal disease Other Notes: AFib; HTN # of Emergency department Answers: 1-2 visits in the last 6 months Social determinants Answers: Mental health diagnosis (anxiety, depression, pers onality disorders, etc.) Score: 19 Date Signed: 12/16/2018 10:29 AM Electronically Signed By:YESI Oreilly
--- NOTE | 2018-12-16 10:32 | ASMTDCNOTE ---
Case Management Discharge Discharge Order Complete? Answers: Yes Patient to Obtain Answers: Other Notes: [facility] Medications Transportation Arranged Answers: Other Notes: [facility] w/c transport Transport will Pick (Date 12/16/2018 01:30 PM & Time) EMTALA Complete Answers: No Case Management Transport Answers: No Form Complete Faxed Final Orders Answers: Yes Agency/Facility Transfer Answers: Yes Report Printed & Faxed to Receiving Agency Family Notified Answers: No Discharge Comments Notes: CM discussed case w/ Mariam Le NP. Pt is being d/c'd today. DC orders sent to [facility]. FLORECITA Berumen will call to give report. CM available for changes. Plan: [facility] Date Signed: 12/16/2018 10:32 AM Electronically Signed By:YESI Oreilly
--- NOTE | 2018-12-16 14:28 | WOCRNPDOC ---
WOCRN Advanced Assessment Note - Skin Integrity Problem, Advanced Assess Right Hip Surgical Wound/Incision Dressing Type: Mepilex Border Integumentary Issue Intervention: Dressing Changed Mary Wound Tissue: Erythema Wound Bed Color: Sweetser, Yellow Skin Integrity Problem Comment: Intertriginous dermatitis along panis skin fold intersected by Right hip surgical incision. With patient lying flat, panis lifted to allow area to fully dry. Once dry, Aquacel Ag incisional dressing applied to hip surgical incision. Interdry sheet applied within the remainder of the skin fold. FLORECITA Berumen in room for care. Will recommend dressing change in 7 days.
--- NOTE | 2018-12-17 14:44 | ASDISCHSUM ---
Discharge Information Plan Status:SNF Medically Cleared to Leave:12/13/2018 Discharge Date:12/16/2018 01:46 PM CM D/C Disposition:Custodial Facility ADT D/C Disposition:Custodial Facility Projected Discharge Date:12/14/2018 11:00 AM Transportation at D/C:Wheelchair Van Discharge Delay Reason: Follow-Up Date:12/14/2018 11:00 AM Discharge Slot: Final Diagnosis: Placement Information Referral Type:*[facility]/SNF Referral ID:[id number] Provider Name:[facility] Address 1:[address] Address 2: City:[place] Selection Factors: State:[place] Patient Contact Information Contact Name:CASA Relationship:Friend Address: City: [facility] Phone: [facility]/Zip Code: Email: Financial Information Financial Class:Medicare Primary Plan Desc:MEDICARE INPATIENT Primary Plan Number:[id number] Secondary Plan Desc:[facility] Secondary Plan Number:[id number] Assessment Information [facility] CM Progress Note CM Note CM Note Notes: Spoke with pt in the room. Pt lives alone and was admitted for hip fracture and had surgery on 12/12. PT/OT recommending SNF and pt has requested [facility]. Referral sent. Discharge date tbd. CM to follow. D/C Plan: SNF, pending acceptance at [facility] Date Signed: 12/13/2018 03:49 PM Electronically Signed By:Estefani Cardona LACE KWADWO Length of stay for Answers: 4-6 days current admission Acuity / Level of Answers: Yes Care: Did the patient have an inpatient admission? Comorbidities - select Answers: Congestive heart failure all that apply Diabetes (uncontrolled or controlled) Moderate or severe liver or renal disease Other Notes: AFib; HTN # of Emergency department Answers: 1-2 visits in the last 6 months Social determinants Answers: Mental health diagnosis (anxiety, depression, pers onality disorders, etc.) Score: 19 Date Signed: 12/16/2018 10:29 AM Electronically Signed By:YESI Oreilly Case Management Discharge Plan Note Case Management Discharge Discharge Order Complete? Answers: Yes Patient to Obtain Answers: Other Notes: [facility] Medications Transportation Arranged Answers: Other Notes: [facility] w/c transport Transport will Pick (Date 12/16/2018 01:30 PM & Time) EMTALA Complete Answers: No Case Management Transport Answers: No Form Complete Faxed Final Orders Answers: Yes Agency/Facility Transfer Answers: Yes Report Printed & Faxed to Receiving Agency Family Notified Answers: No Discharge Comments Notes: CM discussed case w/ Mariam Le NP. Pt is being d/c'd today. DC orders sent to [facility]. FLORECITA Berumen will call to give report. CM available for changes. Plan: [facility] Date Signed: 12/16/2018 10:32 AM Electronically Signed By:YESI Oreilly Intervention Information Intervention Type:*IM-Signed Date of Service:12/16/2018 10:13 AM Patient Type:Inpatient Staff Member:Verna Michael Hours: Discipline: Severity: Comment:
== END 2018-12-16 13:46 | DRG 470 ==
LOC: EDUNIT# → F3N 13:58
PROVIDERS: ADMIT Student in an Organized Health Care Education/Training Program; ATTEND Internal Medicine
PROC: 0SRR0JZ Replacement of Right Hip Joint, Femoral Surface with Synthetic Substitute, Open Approach (ICD-10-PCS; principal; 2018-12-12 09:45)
DX: S72.001A Fracture of unspecified part of neck of right femur, initial encounter for closed fracture (principal); W01.0XXA Fall on same level from slipping, tripping and stumbling without subsequent striking against object, initial encounter; J96.11 Chronic respiratory failure with hypoxia; E87.2 Acidosis; D62 Acute posthemorrhagic anemia; I48.0 Paroxysmal atrial fibrillation; G47.33 Obstructive sleep apnea (adult) (pediatric); E11.65 Type 2 diabetes mellitus with hyperglycemia; I12.9 Hypertensive chronic kidney disease with stage 1 through stage 4 chronic kidney disease, or unspecified chronic kidney disease; N18.3 Chronic kidney disease, stage 3 (moderate); E78.5 Hyperlipidemia, unspecified; F32.9 Major depressive disorder, single episode, unspecified; E03.9 Hypothyroidism, unspecified; K59.00 Constipation, unspecified; N20.0 Calculus of kidney; M17.11 Unilateral primary osteoarthritis, right knee; Z79.01 Long term (current) use of anticoagulants; Z95.3 Presence of xenogenic heart valve; Y92.019 Unspecified place in single-family (private) house as the place of occurrence of the external cause
CPT/HCPCS: 97116-GP; 97162-GP; 97166-GO; 97530-GO; 97530-GP; 97535-GO; J0171; J0690; J1100; J1815; J1885; J2270; J2405; J2704; J2710; J2795; J3010